=== PATIENT | male | born 1940 | race Caucasian/White ===

== ENCOUNTER → 2017-07-21 13:36 | Outpatient (CLI) | payer MEDICARE, OTHER, SELFPAY ==
[2017-07-21 13:32] VITALS: BP 120/76; BMI 25.9
--- NOTE | 2017-07-21 13:41 | RAD_ITS ---
STUDY: X-RAY - UNILATERAL RIBS ( LEFT ) REASON FOR EXAM: Male, 77 years old. Fall. Posterior lower rib pain TECHNIQUE: 5 view(s) of the ribs. COMPARISON: None. FINDINGS: There is a fracture of the posterior-lateral left 10th rib The visualized lung is clear and expanded. There is diffuse osteoporosis There is cardiomegaly. The patient is status post sternotomy. There are degenerative changes of the spine. There is tortuosity of thoracic aorta. There are extensive calcifications of the abdominal aorta There is a calcified left granuloma RAD/Ribs Unil 2V No CXR IMPRESSION: Acute fracture of the posterior left 10th rib Electronically Signed: Rohith Chin MD, FACR at 14:40 EST , Service support ,
--- NOTE | 2017-07-21 13:41 | RAD_ITS ---
STUDY: X-RAY CHEST REASON FOR EXAM: Male, 77 years old. Fall. Pain in lower anterior ribs. TECHNIQUE: Frontal and lateral views of the chest. COMPARISON: August 08, 2014 FINDINGS: There is low volume inspiration. There are granulomatous calcifications unchanged. There is no demonstrated pleural abnormality. There is stable cardiomegaly with sternotomy wires. Normal mediastinum and harley. Normal visualized pulmonary arteries. There is atherosclerotic calcification of the aortic arch with tortuosity. There are diffuse degenerative changes of the visualized thoracic spine. Normal visualized ribs, clavicles, and shoulders. There is no demonstrated abnormality of the visualized soft tissue structures of the upper abdomen. RAD/Chest PA and Lateral IMPRESSION: Stable cardiomegaly. Low volume inspiration. No acute pathology. Electronically Signed: Srikanth Sunshine MD at 16:09 EST , Service support ,
== END ==
PROVIDERS: Family Provider Family Medicine Geriatric Medicine; PCP Family Medicine Geriatric Medicine; Visit Provider Physician Assistant
DX: S22.32XA Fracture of one rib, left side, initial encounter for closed fracture (principal); S20.212A Contusion of left front wall of thorax, initial encounter; W19.XXXA Unspecified fall, initial encounter
CPT/HCPCS: 71046; 71100

== ENCOUNTER → 2017-09-11 10:19 | Outpatient (CLI) | payer MEDICARE, OTHER, SELFPAY ==
[2017-09-11 13:16] LABS: Absolute Lymphocyte Count 1.12 X10^3/ul (0.83-4.51); Absolute Neutrophil Count 3.8 X10^3/uL (2.0-7.7); Basophil# 0.02 X10^3/uL; Basophil% 0.3 % (0-1); Eosinophils% 1.7 % (0-5); Hematocrit 39.6 % (40-54); Hemoglobin 12.5 g/dl (13.0-16.5); Lymphocyte # 1.12 X10^3/ul (4.0); Lymphocyte % 19.1 % (19-41); Mean Corp Hgb Conc 31.6 g/gl (32-36); Mean Corpuscular Hgb 29.3 pg (27.0-32.0); Mean Platelet Vol. 10.5 fl (6.2-12.0); Monocyte# 0.77 X10^3/uL; Monocyte% 13.2 % (0-10); Neutrophil # 3.82 X10^3/uL (2.7-7.7); Neutrophil % 65.4 % (47-70); Platelet Count 250 K/mm3 (150-450); RBC Distribution Width CV 14.9 % (11.6-14.6); RBC Distribution Width SD 49.3 fl (35.1-43.9); Red Blood Count 4.26 M/mm3 (4.6-6.2); White Blood Count 5.9 K/mm3 (4.4-11.0)
[2017-09-11 13:17] LABS: POSITIVE COUNT NO; POSITIVE DIFFERENTIAL NO; POSITIVE MORPHOLOGY NO
[2017-09-11 13:40] LABS: ALB/GLOB Ratio 1.2 RATIO (0.9-2.4); AST(SGOT) 20 U/L (15-37); Alanine Aminotransfer ALT/SGPT 23 U/L (16-61); Albumin, Serum 3.7 g/dL (3.2-5.0); Alkaline Phosphatase 83 U/L (45-117); Anion Gap 8 (5-15); BUN 21 mg/dL (7-18); BUN/Creat Ratio 16.2 RATIO (10-20); Calcium,Total 8.9 mg/dL (8.5-10.1); Chloride 104 mmol/L (98-107); EST Glomerular Filtration Rate 57 mL/min (>60); Est Glom Filt Rate - Afr Amer 69 mL/min (>60); Globulin 3.1 g/dL (2.2-4.2); Glucose 97 mg/dL (74-106); Potassium 4.2 mmol/L (3.5-5.1); Protein, Total 6.8 g/dL (6.4-8.2); Sodium Level 140 mmol/L (136-145); Thyroid Stim Hormone (TSH) 2.76 uIU/mL (0.358-3.74)
[2017-09-12 10:04] LABS: Vitamin D,25 Hydroxy 24.2 ng/mL (29.95-100.01)
== END ==
PROVIDERS: Family Provider Family Medicine Geriatric Medicine; PCP Family Medicine Geriatric Medicine; Visit Provider Family Medicine Geriatric Medicine
DX: E55.9 Vitamin D deficiency, unspecified (principal); F52.8 Other sexual dysfunction not due to a substance or known physiological condition; I10 Essential (primary) hypertension
CPT/HCPCS: 36415; 80053; 82306; 84403; 84443; 85025

== ENCOUNTER 2017-10-07 00:18 | Inpatient (IN) | payer MEDICARE, OTHER, SELFPAY ==
[2017-10-07] VITALS (11 sets, daily range): BP systolic 128–155; BP diastolic 63–84; PULSE 65–85; RESP 16–24; TEMP 36.7–38.8; O2SAT 96–100; BMI 25.8
--- NOTE | 2017-10-07 00:33 | EKG12_ITS ---
Test Reason : Blood Pressure : / mmHG Vent. Rate : 079 BPM Atrial Rate : 079 BPM P-R Int : 150 ms QRS Dur : 088 ms QT Int : 390 ms P-R-T Axes : 045 010 030 degrees QTc Int : 447 ms Normal sinus rhythm Nonspecific ST segment Confirmed by ELIJAH SALINAS, DAMARIS ([id number]), brands editor NAM DOMINGO ([id number] on 10/09/2017 12:48:30 PM Referred By: LACI Confirmed By:DAMARIS NAVA MD
--- NOTE | 2017-10-07 00:33 | RAD_ITS ---
STUDY: X-RAY CHEST REASON FOR EXAM: Male, 77 years old. Fever. TECHNIQUE: Single AP portable view of the chest. COMPARISON: Prior comparison studies are not available for review at this time. FINDINGS: The lungs are clear and expanded. There is no demonstrated pleural abnormality. Sternal cerclage wires are present from a prior sternotomy. The heart size is within normal limits. Normal mediastinum and harley. Normal visualized pulmonary arteries. There is atherosclerotic tortuosity of the aortic arch and descending thoracic aorta. The thoracic spine is obscured. Normal visualized ribs, clavicles, and shoulders. There is no demonstrated abnormality of the visualized soft tissue structures of the upper abdomen. RAD/Chest 1 View (Portable) IMPRESSION: No active pulmonary disease. Electronically Signed: Washington Ragland MD at 1:25 EDT Tel , Service support ,
--- NOTE | 2017-10-07 00:33 | CT_ITS ---
STUDY: CT ABDOMEN AND PELVIS WITHOUT CONTRAST REASON FOR EXAM: Male, 77 years old. Low back pain following fall. Fever, shaking and hypertension. RADIATION DOSAGE (If Supplied By Facility): CTDIvol = ( 13.03 ) mGy, DLP = ( 700.02 ) mGycm TECHNIQUE: Transaxial images were obtained from the dome of the diaphragm to the symphysis pubis without oral contrast, and without intravenous contrast. Sagittal and coronal images were reconstructed. Individualized dose optimization techniques were used for this CT. COMPARISON: None. FINDINGS: The visualized lung bases are unremarkable. The heart is within normal limits in size. The left atrium somewhat prominent. There are coronary calcifications. Normal liver. Normal gallbladder and extrahepatic biliary system. There is a benign calcified granuloma of the spleen. Normal pancreas. Normal bilateral adrenal glands. Normal right kidney. 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 There is a large cyst in the lateral aspect of the left kidney measuring about 6.5 cm. There is no evidence of hydronephrosis. There is moderate size hiatal hernia. There are surgical clips in the gastroesophageal junction region and surgical clips close to the colon. The small bowel loops are normal in caliber. There is no evidence of bowel obstruction. There is fecal retention. There is non-visualization of the appendix. There is diffuse atherosclerotic calcification of the abdominal aorta with elongation and tortuosity, but without a demonstrated aneurysm. Normal inferior vena cava. Normal retroperitoneum. Normal urinary bladder. There is enlargement of the prostate gland. There are small prostatic calcifications. Normal abdominal wall. There is diffuse demineralization of the osseous structures. There are degenerative changes of the lumbar spine at multiple levels. There is mild S-shaped scoliosis. CT/Abdomen/Pelvis without Cont IMPRESSION: Postoperative changes in the gastroesophageal junction region. Nonspecific fluid-filled small bowel loops without evidence of small bowel obstruction. Fecal retention. Nonvisualization of the appendix. Enlarged prostate. No demonstrated otherwise acute process. Electronically Signed: Washington Ragland MD at 1:58 EDT Tel , Service support ,
--- NOTE | 2017-10-07 00:37 | ED.DCSUM_ITS ---
- ER Visit Summary Date of Service: 10/07/17 Chief Complaint: Fever, weakness History of Present Illness: The patient is a 77 M resents to the emergency department with fever and weakness. Patient apparently had a mechanical fall today. He does not have any recollection of the incident. I do suspect he has some mild dementia. There is no family at the bedside. He has been increasingly weak over the past 24 hours. noticed that he had a fever today. He denies any current symptoms. He denies cough, abdominal pain, vomiting, or dysuria. His only current complaint is of mild low back pain. He is unsure of his daily medications. Physical Examination: Vital signs reviewed General: Well-nourished, well-developed Head: Normocephalic, atraumatic Eyes: Pupils equal and reactive, extraocular muscles intact Neck, supple, no lymphadenopathy Heart: Regular rate and rhythm Respiratory: No distress, clear bilaterally Abdomen: Soft, nontender, nondistended, no peritoneal signs Back: Mild tenderness in the lumbar spine without step-off or deformity Extremities: Nontender, no edema, no cords Skin: Normal color no rash Neuro: Alert and oriented to self, no focal or lateralizing deficits Test Results: [] Emergency Department Course and Treatment: I was able to discuss the presentation with the patient's over the phone. Apparently, he did not fall. He was just more confused today and was complaining of increasing back pain. He was seen by his chiropractor. The patient does have some CVA tenderness. He also has a fever. My concern was for infectious process. Screening labs are obtained. The patient does have a mild leukocytosis. It does appear as if the urine is the source of infection. With this pain, I did obtain a CT of his abdomen. There is no evidence of acute intra-abdominal process. He does have a large left renal cyst, but there is no evidence of abscess. Blood cultures were obtained. The patient's lactate is normal. He has not been hypotensive. He has not been tachycardic. He is given IV Rocephin. With the patient's increasing confusion and evidence of pyelonephritis, he will be admitted. He was discussed with the hospitalist. Treatment Plan: [] Disposition: Admission Impression: 1. Sepsis 2. Pyelonephritis 3. Delirium This note was generated with [employer] software. It may contain incorrect words, spelling, and punctuation that were not noted in review of the chart prior to signing ED Disposition - Plan for ED Patient: Chief Complaint: Fall Referrals: Ricardo Martínez Chi, MD [Primary Care Provider] -
[2017-10-07] MEDS: Acetaminophen 500 MG Tablet 1000 MG PO (00:38)
[2017-10-07] MEDS: 0.9% Normal Saline 1,000 ML 1000 ML IV (00:38)
--- NOTE | 2017-10-07 00:41 | NURSING ---
Addendum entered by Jason Marin 10/07/17 00:41: NO OLD EKG'S IN MUSE Original Note: NO OLD EKG'S IU
[2017-10-07 00:52] LABS: International Normalized Ratio 0.9; Prothrombin Time (Protime)PT. 12.6 SECONDS (11.7-14.9)
[2017-10-07 00:55] LABS: Bacteria 0 SEEN /hpf (None Seen)
[2017-10-07 00:56] LABS: Color, Urine Yellow (Yellow); Glucose, Dipstick Normal (Normal); Ketone-Dipstick 5 mg/dl (Negative); Leukocyte Esterase-Dipstick 500 /ul (Negative); Nitrite-Dipstick Negative (Negative); Occult Blood-Urine 25 /ul (Negative); Protein-Dipstick 30 mg/dl (Negative); Specific Gravity, Urine 1.025 (1.002-1.030); Urine Clarity Sl. Cloudy (Clear); Urine Urobilinogen 1 mg/dl (Normal)
[2017-10-07 01:00] LABS: Absolute Lymphocyte Count 0.53 X10^3/ul (0.83-4.51); Absolute Neutrophil Count 10.4 X10^3/uL (2.0-7.7); Basophil# 0.02 X10^3/uL; Basophil% 0.2 % (0-1); Eosinophil# 0.02 X10^3/uL; Eosinophils% 0.2 % (0-5); Hemoglobin 12.6 g/dl (13.0-16.5); Lymphocyte # 0.53 X10^3/ul (4.0); Lymphocyte % 4.3 % (19-41); Mean Corp Hgb Conc 32.3 g/gl (32-36); Mean Corpuscular Hgb 29.7 pg (27.0-32.0); Monocyte# 1.37 X10^3/uL; Monocyte% 11.1 % (0-10); Neutrophil # 10.43 X10^3/uL (2.7-7.7); Platelet Count 225 K/mm3 (150-450); RBC Distribution Width CV 14.7 % (11.6-14.6); RBC Distribution Width SD 48.2 fl (35.1-43.9); Red Blood Count 4.24 M/mm3 (4.6-6.2); White Blood Count 12.4 K/mm3 (4.4-11.0)
[2017-10-07 01:01] LABS: Differential Indicated SCAN CRITERIA MET; POSITIVE COUNT NO; POSITIVE DIFFERENTIAL YES; POSITIVE MORPHOLOGY NO
[2017-10-07 01:03] LABS: Urine Bilirubin Dipstick 1 mg/dL (Negative)
[2017-10-07 01:04] LABS: Mucous, Urine 2+ /hpf (<or=2+); Red Blood Cells-Urine 0-5 SEEN /hpf (0-5); Squamous Epithelial Cells - UA 0-5 SEEN /hpf (0-5); White Blood Cells 50-100 SEEN /hpf (0-5)
[2017-10-07 01:05] LABS: ALB/GLOB Ratio 1.2 RATIO (0.9-2.4); AST(SGOT) 16 U/L (15-37); Alanine Aminotransfer ALT/SGPT 21 U/L (16-61); Albumin, Serum 3.7 g/dL (3.2-5.0); Alkaline Phosphatase 85 U/L (45-117); Anion Gap 5 (5-15); BUN 19 mg/dL (7-18); BUN/Creat Ratio 13.9 RATIO (10-20); Chloride 109 mmol/L (98-107); Creatinine, Serum 1.37 mg/dL (0.70-1.30); EST Glomerular Filtration Rate 53 mL/min (>60); Est Glom Filt Rate - Afr Amer 65 mL/min (>60); Estimated Creatinine Clearance 46.62 ml/min; Globulin 3.2 g/dL (2.2-4.2); Glucose 113 mg/dL (74-106); Potassium 3.7 mmol/L (3.5-5.1); Protein, Total 6.9 g/dL (6.4-8.2); Sodium Level 142 mmol/L (136-145)
[2017-10-07 01:09] LABS: Lactic Acid 1.2 mmol/L (0.4-2.0)
[2017-10-07] MEDS: Ceftriaxone 1 GM/50 ML BAG IV (01:28)
--- NOTE | 2017-10-07 01:36 | ED.RN ---
ATTEMPTED TO CALL [facility] AT [phone] TO OBTAIN PT INFORMATION. WAS UNABLE TO REACH AT THIS TIME. NO VOICEMAIL
--- NOTE | 2017-10-07 02:25 | HP.PCM_ITS ---
Problem List (1) Dementia Status: Chronic Qualifiers: Dementia type: unspecified type (2) Febrile illness Status: Acute (3) UTI (urinary tract infection) Status: Acute Qualifiers: Urinary tract infection type: site unspecified (4) Accident due to mechanical fall without injury Status: Suspected History of Present Illness Date of Admission: 10/07/17 Chief Complaint: pyelonephritis The patient is a 77 year old male patient with mild dementia at baseline who comes from home presents to the ER with fever. He is seemingly more confused per report by his spouse. Patient has a leukocytosis with a left shift and UA is indicative as likely source. The patient denies flank pain. It is reported that he had a mechanical fall by his spouse but patient is an unreliable historian and can't remember falling. His left to go home prior to my assessment. He will be admitted for management of his UTI. Lactate was within normal limits. Past Medical History Past Medical History (Chronic Problems): Chronic Problems Dementia (Chronic) Allergies No Known Allergies Allergy (Verified 10/07/17 00:30) Home Medications: Ambulatory Orders Medication Instructions Recorded Aspirin 325 mg PO QHS 10/07/17 Calcium PO DAILY 10/07/17 Memantine HCl 10 mg PO BID 10/07/17 Metoprolol Tartrate 50 mg PO DAILY 10/07/17 Multivitamin [Daily Multiple 1 each PO DAILY 10/07/17 Vitamin] Pantoprazole Sodium [Protonix] 20 mg PO DAILY 10/07/17 Pravastatin [Pravachol] 80 mg PO DAILY 10/07/17 Prednisone 5 mg PO DAILY 10/07/17 traMADol [Ultram (G)] 50 mg PO Q6H PRN PRN 10/07/17 Smoking Status: Never smoker - *Family History Maternal History Items: No pertinent history Review of Systems Constitutional: Reports: Chills, Fever. Denies: Weight Change HEENT: Denies: Head Aches, Sinus Congestion, Sinus Drainage Cardiovascular: Denies: Chest Pain, Palpitations Respiratory: Denies: Cough, Shortness of breath at rest, Sputum production Gastrointestinal: Denies: Abdominal Pain, Nausea, Vomiting Genitourinary: Denies: Dysuria Musculoskeletal: Denies: Joint Pain, Joint Tenderness Skin: Denies: Rash, Wounds Neurological: Denies: Numbness, Tingling, Focal weakness Psychiatric: Denies: Anxiety, Depression, Homicidal Ideations, Suicidal Ideations Hematologic/ Lymphatic: Denies: Easy Bruising, Easy Bleeding VTE Information - Inpt Only VTE Present on Admission: No VTE Mechan Device Prophylaxis: None VTE Pharm Prophylaxis ordered?: Yes Patient Problems: Active and Suspected Problems Febrile illness (Acute) UTI (urinary tract infection) (Acute) Accident due to mechanical fall without injury (Suspected) - Physical Exam General: Alert, Cooperative, Confused HEENT: Atraumatic, Normocephalic Neck: Supple, No JVD, Negative Carotid Bruits Lungs: Clear to auscultation, Normal air movement, No rhonchi, No wheeze, No rales Cardiovascular: Regular rate, Regular Rhythm, Normal S1, Normal S2, No murmurs Abdomen: Bowel Sounds Present, Soft, Non Tender, - - neg cva tenderness Extremities: No edema, Capillary Refill Less than 3 Seconds Skin: No rashes, No breakdown Musculoskeletal: No Tenderness to Palpation of Joints or Extremities Neurological: Neuro grossly intact Psych/Mental Status: Restless, - - mild memory impairment Vital Signs Temp Pulse Resp BP Pulse Ox 98.6 F 75 18 129/63 H 98 10/07/17 02:05 10/07/17 02:05 10/07/17 02:05 10/07/17 02:05 10/07/17 02:05 Oxygen Delivery Method Room Air Weight: 180 lb Body Mass Index (BMI) 25.8 Microbiology Past 72 Hours 10/07/17 01:00 Influenza Types A,B Direct FA ([facility]) - Final Mucosa - Nose Laboratory Tests Past 24 Hrs 10/07/17 10/07/17 10/07/17 00:30 00:30 00:30 WBC 12.4 H RBC 4.24 L Hgb 12.6 L Hct 39.0 L MCV 92.0 MCH 29.7 MCHC 32.3 RDW 14.7 H RDW Differential 48.2 H Plt Count 225 MPV 10.0 Immature Gran % (Auto) 0.200 Neut % (Auto) 84.0 H Lymph % (Auto) 4.3 L Sharkey % (Auto) 11.1 H Eos % (Auto) 0.2 Baso % (Auto) 0.2 Absolute Neuts (auto) 10.4 H Absolute Lymphs (auto) 0.53 L Total Counted Not Reportable PT 12.6 INR 0.9 Sodium 142 Potassium 3.7 Chloride 109 H Carbon Dioxide 28.0 Anion Gap 5 BUN 19 H Creatinine 1.37 H Estim Creat Clear Calc 46.62 Est GFR (MDRD) Af Amer 65 Est GFR (MDRD) Non-Af 53 L BUN/Creatinine Ratio 13.9 Glucose 113 H Lactic Acid Calcium 9.0 Total Bilirubin 0.50 AST 16 ALT 21 Alkaline Phosphatase 85 Total Protein 6.9 Albumin 3.7 Globulin 3.2 Albumin/Globulin Ratio 1.2 Urine Color Urine Clarity Urine pH Ur Specific [place] Urine Protein Urine Glucose (UA) Urine Ketones Urine Occult Blood Urine Nitrite Urine Bilirubin Urine Urobilinogen Ur Leukocyte Esterase Urine RBC Urine WBC Ur Squamous Epith Cells Urine Bacteria Urine Mucus 10/07/17 10/07/17 00:30 00:50 WBC RBC Hgb Hct MCV MCH MCHC RDW RDW Differential Plt Count MPV Immature Gran % (Auto) Neut % (Auto) Lymph % (Auto) Sharkey % (Auto) Eos % (Auto) Baso % (Auto) Absolute Neuts (auto) Absolute Lymphs (auto) Total Counted PT INR Sodium Potassium Chloride Carbon Dioxide Anion Gap BUN Creatinine Estim Creat Clear Calc Est GFR (MDRD) Af Amer Est GFR (MDRD) Non-Af BUN/Creatinine Ratio Glucose Lactic Acid 1.2 Calcium Total Bilirubin AST ALT Alkaline Phosphatase Total Protein Albumin Globulin Albumin/Globulin Ratio Urine Color Yellow Urine Clarity Sl. Cloudy Urine pH 5.0 Ur Specific [place] 1.025 Urine Protein 30 H Urine Glucose (UA) Normal Urine Ketones 5 H Urine Occult Blood 25 H Urine Nitrite Negative Urine Bilirubin 1 H Urine Urobilinogen 1 H Ur Leukocyte Esterase 500 H Urine RBC 0-5 SEEN Urine WBC 50-100 SEEN Ur Squamous Epith Cells 0-5 SEEN Urine Bacteria 0 SEEN Urine Mucus 2+ Assessment/Plan Active and Suspected Problems Febrile illness (Acute) UTI (urinary tract infection) (Acute) Accident due to mechanical fall without injury (Suspected) Plan - admit to general medical floor - 1 gram Rocephin IV q day - normal saline at 100cc/hour - CBC, BMP in am - continue routine home medications - LMWH for DVT prophylaxis Code Visit Inpatient E&M: 49186 Init Hosp L2
[2017-10-07] MEDS: 0.9% Normal Saline 1,000 ML 100 ML IV ×2 (03:21→12:16)
[2017-10-07] MEDS: 0.9% NaCl Peripheral Flush Adult/Peds IV (03:46)
[2017-10-07 07:14] LABS: Hematocrit 35.8 % (40-54); Hemoglobin 11.4 g/dl (13.0-16.5); Mean Corp Hgb Conc 31.8 g/gl (32-36); Mean Corpuscular Hgb 29.4 pg (27.0-32.0); Mean Corpuscular Volume 92.3 fL (80-94); Mean Platelet Vol. 10.2 fl (6.2-12.0); Platelet Count 202 K/mm3 (150-450); RBC Distribution Width CV 14.8 % (11.6-14.6); RBC Distribution Width SD 48.3 fl (35.1-43.9); Red Blood Count 3.88 M/mm3 (4.6-6.2); Scan Indicated on CBC? Y/N NO; White Blood Count 11.3 K/mm3 (4.4-11.0)
--- NOTE | 2017-10-07 07:33 | PN_ITS ---
Patient Problems: Active and Suspected Problems (This Medical Record has been edited. Action required.) Febrile illness (Acute) UTI (urinary tract infection) (Acute) Accident due to mechanical fall without injury (Suspected) Subjective: Patient seen and examined. Seen with. Patient denies falling. He has cognitive impairment, lives with his at home. Denies any complaints at time of being seen. He says he feels much improved. Vitals/I&O's: Vital Signs Temp Pulse Resp BP Pulse Ox 99.2 F H 80 16 128/68 H 100 10/07/17 03:18 10/07/17 03:47 10/07/17 03:47 10/07/17 03:18 10/07/17 03:47 Oxygen Delivery Method Room Air Weight: 81.6 kg Body Mass Index (BMI) 25.8 General: Alert, Oriented x3, Cooperative, No apparent distress HEENT: Atraumatic, PERRLA, EOMI, Normocephalic Neck: Supple Lungs: Clear to auscultation, Normal air movement Cardiovascular: Regular rate, Regular Rhythm, Normal S1, Normal S2, No murmurs Abdomen: Bowel Sounds Present, Soft, Non Tender, Non-Distended, No Hepato- splenomegaly Extremities: No edema Skin: No rashes, No breakdown Musculoskeletal: No Tenderness to Palpation of Joints or Extremities Lymphatic: No Cervical, Supraclavicular, or Inguinal Adenopathy Neurological: Cranial nerves II-XII grossly intact Psych/Mental Status: Normal Affect, Appropriate Laboratory Results 10/07/17 06:48: WBC 11.3 H, RBC 3.88 L, Hgb 11.4 L, Hct 35.8 L, MCV 92.3, MCH 29.4, MCHC 31.8 L, RDW 14.8 H, RDW Differential 48.3 H, Plt Count 202, MPV 10.2 10/07/17 06:48: Sodium Pending, Potassium Pending, Chloride Pending, Carbon Dioxide Pending, Anion Gap Pending, BUN Pending, Creatinine Pending, Est GFR ( MDRD) Af Amer Pending, Est GFR (MDRD) Non-Af Pending, BUN/Creatinine Ratio Pending, Glucose Pending, Calcium Pending Current Medications Acetaminophen (Tylenol) 650 mg PO Q6H PRN PRN PRN Reason: FEVER Aspirin (Aspirin) 325 mg PO QHS [place] Sodium Chloride () 1,000 mls @ 100 mls/hr IV .Q10H [place] Last Admin: 10/07/17 03:21 Dose: 100 mls/hr Ceftriaxone Sodium (Rocephin) 1 gm in 50 mls @ 100 mls/hr IV Q24 [facility] Memantine (Namenda) 10 mg PO BID [facility] Metoprolol Tartrate (Lopressor (Beta Norbert)) 50 mg PO DAILY [facility] Multivitamins (Multivitamin) 1 tablet PO DAILYCM [facility] Ondansetron HCl (Zofran) 4 mg IV Q8H PRN PRN PRN Reason: Nausea Pantoprazole Sodium (Protonix) 20 mg PO DAILY [facility] Polyethylene Glycol (Miralax) 17 gm PO DAILY [facility] Pravastatin Sodium (Pravachol) 80 mg PO DAILY@2200 [facility] Prednisone () 5 mg PO DAILYCM [facility] Sodium Chloride () 5 - 30 ml IV UD PRN PRN Reason: SALINE FLUSH Last Admin: 10/07/17 03:46 Dose: 10 ml Tramadol HCl (Ultram) 50 mg PO Q6H PRN PRN PRN Reason: PAIN Medical Necessity - Tobacco Use Smoking Status: Former smoker Assessment/Plan Active and Suspected Problems (This Medical Record has been edited. Action required.) Febrile illness (Acute) UTI (urinary tract infection) (Acute) Accident due to mechanical fall without injury (Suspected) 77-year-old male with past medical history of dementia with Parkinson's disease , hypertension who comes in with fever and confusion and is being managed as UTI. 1. Acute metabolic encephalopathy likely secondary to UTI, resolved, patient at baseline, will continue to monitor patient's mentation. 2. Acute UTI without any SIRS criteria, blood cultures are pending, urine culture apparently not done, patient started already on antibiotics, will continue empiric treatment for 1 week total antibiotics, continue on IV ceftriaxone for now 3. Hypertension, controlled, continue on metoprolol 4. Parkinson's disease with dementia, not on any Parkinson's disease medication , on memantine, discussed with the son, patient will need neurology evaluation in the outpatient 5. CAD status post stent, on aspirin, statin 6. History of atrial fibrillation, controlled, on anticoagulation because of falls 7. Chronic steroid use, unclear reason, will continue on prednisone. 8. DVT Prophylaxis with heparin subcu 9. Disposition: Possible DC home in am Code Visit Inpatient E&M: 04386 Subs Hosp L2
[2017-10-07 07:57] LABS: Anion Gap 8 (5-15); BUN 15 mg/dL (7-18); BUN/Creat Ratio 13.9 RATIO (10-20); Calcium,Total 8.3 mg/dL (8.5-10.1); Chloride 112 mmol/L (98-107); Creatinine, Serum 1.08 mg/dL (0.70-1.30); EST Glomerular Filtration Rate 70 mL/min (>60); Est Glom Filt Rate - Afr Amer 85 mL/min (>60); Estimated Creatinine Clearance 59.14 ml/min; Glucose 110 mg/dL (74-106); Potassium 3.8 mmol/L (3.5-5.1); Sodium Level 146 mmol/L (136-145)
[2017-10-07] MEDS: Polyethylene Glycol 3350 17 GM PACKET PO (08:26)
[2017-10-07] MEDS: Multivitamins,Therapeutic Tablet 1 TABLET PO (08:26)
[2017-10-07] MEDS: Metoprolol Tartrate 50 MG Tablet PO (08:26)
[2017-10-07] MEDS: predniSONE 5 MG Tablet PO (08:26)
[2017-10-07] MEDS: Memantine Hydrochloride 10 MG Tablet PO ×2 (08:26→22:15)
[2017-10-07] MEDS: Pantoprazole Sodium 20 MG Tablet PO (08:27)
[2017-10-07] MEDS: Acetaminophen 325 MG Tablet 650 MG PO (08:27)
[2017-10-07] MEDS: traMADol 50 MG Tablet PO ×2 (14:55→22:19)
--- NOTE | 2017-10-07 16:11 | CASEMGMT ---
CYNDIE LEIVA Face to Face with patient for initial transition planning/care coordination assessment. CYNDIE LEIVA introduced self and role at [facility]. Patient lying in bed, alert and oriented, and nurse wound care at bedside. Patient willing to participate in assessment and is able to answer all questions appropriately. Care providers, pharmacy, and demographics verified. See link attached. Pt wishes to discharge home with C with [facility]. CYNDIE LEIVA will make a referral for HHC with [facility]. Patient states he has no further needs or concerns at this time. CM to follow for discharge planning needs that may arise. Disposition Plan: Patient to discharge home with [facility], family support, and follow-up plans in place.
--- NOTE | 2017-10-07 16:25 | CASEMGMT ---
Social Work Note Per RN CALI Ceballos, pt has Palliative Care Services through [facility]. SW placed a call to [facility] and spoke with Madonna to inform her that pt is in hospital. Plan: Discharge home with HHC and resumption of Palliative Care Services Bernice Dangelo RECONCILING CLERK, HEALTH CONSULTANT
[2017-10-07] MEDS: Aspirin 325 MG Tablet PO (22:15)
[2017-10-07] MEDS: Pravastatin 80 MG Tablet PO (22:15)
[2017-10-08 04:00] VITALS: BP 155/75; PULSE 68; RESP 18; TEMP 37.2; O2SAT 98
[2017-10-08 08:29] VITALS: BP 163/72; PULSE 81; O2SAT 99
[2017-10-08] MEDS: Multivitamins,Therapeutic Tablet 1 TABLET PO (08:58)
[2017-10-08] MEDS: predniSONE 5 MG Tablet PO (08:59)
[2017-10-08 09:01] VITALS: PULSE 81; O2SAT 99
[2017-10-08 09:35] VITALS: BP 126/63
[2017-10-08] MEDS: Ceftriaxone 1 GM/50 ML BAG IV (09:56)
--- NOTE | 2017-10-08 09:56 | PCM.DC ---
- Discharge Diagnoses Current Active Problems: Current Active and Chronic Problems (This Medical Record has been edited. Action required.) Dementia (Chronic) Febrile illness (Acute) UTI (urinary tract infection) (Acute) Reason(s) for Visit for Discharge Instructions: Fever, weakness You will use the following diet at home:: Regular Your food should be the consistency of: Regular Your liquids should be the consistency of: Regular/Thin Discharge Activity: Return to Normal Activity Additional Instructions: Complete your antibiotics. Continue to hydrate yourself. You will be getting home health for physical and occupational therapy. You will need to repeat blood work and follow-up with your primary doctor. Allergies/Adverse Reactions: Allergies No Known Allergies Allergy (Verified 07/21/17 13:32) Medications to take at Discharge Calcium Carbonate [Calcium] 600 mg PO DAILY 04/19/16 Aspirin 325 mg PO QHS 10/07/17 Memantine HCl 10 mg PO BID 10/07/17 Metoprolol Tartrate 50 mg PO DAILY 10/07/17 Multivitamin [Daily Multiple Vitamin] 1 each PO DAILY 10/07/17 Pantoprazole Sodium [Protonix] 20 mg PO DAILY 10/07/17 Pravastatin [Pravachol] 80 mg PO QHS 10/07/17 Prednisone 5 mg PO DAILY 10/07/17 traMADol [Ultram] 50 mg PO Q6H PRN PRN 10/07/17 Cefdinir [Omnicef [equiv]] 300 mg PO Q12H #10 cap 10/08/17 The following prescriptions were given: Cefdinir [Omnicef [equiv]] 300 mg PO Q12H #10 cap Primary Care Physician: Ricardo Martínez Chi, MD [Primary Care Provider] - Please follow up with your Primary Care Physician in: within 2 weeks Please Follow Up With: Johnny Villegas MD When: as already scheduled - October 24 Proposed Discharge Date: 10/08/17
[2017-10-08] MEDS: Pantoprazole Sodium 20 MG Tablet PO (10:11)
[2017-10-08 10:12] VITALS: BP 126/63; PULSE 81
[2017-10-08] MEDS: Metoprolol Tartrate 50 MG Tablet PO (10:12)
[2017-10-08] MEDS: Memantine Hydrochloride 10 MG Tablet PO (10:13)
[2017-10-08 10:53] LABS: Absolute Lymphocyte Count 0.53 X10^3/ul (0.83-4.51); Absolute Neutrophil Count 9.3 X10^3/uL (2.0-7.7); Basophil# 0.01 X10^3/uL; Basophil% 0.1 % (0-1); Eosinophil# 0.04 X10^3/uL; Eosinophils% 0.4 % (0-5); Hematocrit 38.2 % (40-54); Lymphocyte # 0.53 X10^3/ul (4.0); Lymphocyte % 4.9 % (19-41); Mean Corp Hgb Conc 31.4 g/gl (32-36); Mean Corpuscular Hgb 28.8 pg (27.0-32.0); Mean Corpuscular Volume 91.6 fL (80-94); Mean Platelet Vol. 9.8 fl (6.2-12.0); Monocyte# 0.91 X10^3/uL; Monocyte% 8.5 % (0-10); Neutrophil # 9.26 X10^3/uL (2.7-7.7); Platelet Count 192 K/mm3 (150-450); RBC Distribution Width SD 50.5 fl (35.1-43.9); Red Blood Count 4.17 M/mm3 (4.6-6.2); White Blood Count 10.8 K/mm3 (4.4-11.0)
[2017-10-08 10:54] LABS: Differential Indicated SCAN CRITERIA MET; POSITIVE COUNT NO; POSITIVE DIFFERENTIAL YES; POSITIVE MORPHOLOGY NO
[2017-10-08 11:17] LABS: Anion Gap 9 (5-15); BUN 13 mg/dL (7-18); BUN/Creat Ratio 9.8 RATIO (10-20); Calcium,Total 8.9 mg/dL (8.5-10.1); Chloride 109 mmol/L (98-107); Creatinine, Serum 1.32 mg/dL (0.70-1.30); EST Glomerular Filtration Rate 56 mL/min (>60); Est Glom Filt Rate - Afr Amer 68 mL/min (>60); Estimated Creatinine Clearance 48.39 ml/min; Glucose 152 mg/dL (74-106); Potassium 3.3 mmol/L (3.5-5.1); Sodium Level 143 mmol/L (136-145)
[2017-10-08 14:00] VITALS: BP 135/73; PULSE 67; RESP 16; TEMP 37; O2SAT 97
[2017-10-08] MEDS: Acetaminophen 325 MG Tablet 650 MG PO (14:04)
--- NOTE | 2017-10-08 15:00 | PCM.DC.SUM ---
Discharge Date and Diagnosis Date of Admission: 10/07/17 Date of Discharge: 10/08/17 - Primary Discharge Diagnosis Acute metabolic encephalopathy Acute UTI Debility - Secondary Discharge Diagnosis Chronic Problems (This Medical Record has been edited. Action required.) Dementia (Chronic) Atherosclerotic heart disease of [place] coronary artery without angina pectoris (Chronic) Paroxysmal atrial fibrillation (Chronic) Palpitations (Chronic) H/O right coronary artery stent placement (Chronic) 08/09/02, cutting balloon procedure of ostium of [facility] use of drug (Chronic) Nonrheumatic tricuspid (valve) insufficiency (Chronic) Nonrheumatic mitral valve regurgitation (Chronic) Nonrheumatic aortic (valve) stenosis (Chronic) History of maze procedure (Chronic) For Atrial fibrillation Atrial tachycardia (Chronic) Parkinsons disease (Chronic) 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 Nonspecific fluid-filled small bowel loops without evidence of small bowel obstruction. Fecal retention. Nonvisualization of the appendix. Enlarged prostate. No demonstrated otherwise acute process. Electronically Signed: Washington Ragland MD at 1:58 EDT Tel , Service support , Chest X-Ray 10/07/17 00:33 IMPRESSION: No active pulmonary disease. Electronically Signed: Washington Ragland MD at 1:25 EDT Tel , Service support , None Operations: None Procedures: None Summary of Care Provided: 77-year-old male with past medical history of dementia with Parkinson's disease, hypertension who comes in with fever and confusion and is being managed as UTI. 1. Acute metabolic encephalopathy likely secondary to UTI, resolved, at his baseline 2. Acute UTI without any SIRS criteria, blood cultures are pending, is on IV ceftriaxone for 2 days, will be discharged on cefdinir for 5 more days making 1 week total antibiotics. 3. Debility related to acute medical problems, and the patient with baseline cognitive impairment and Parkinson's disease with problems ambulating, patient will be getting home health for physical and occupational therapy. 4. Hypertension, controlled, on metoprolol 5. Parkinson's disease with dementia, not on any Parkinson's disease medication, on memantine, has an outpatient neurology appointment on October 24, 2017. 6. CAD status post stent, on aspirin, statin 7. History of atrial fibrillation, controlled, not on anticoagulation because of falls 8. Chronic steroid use, unclear reason, on low dose prednisone. Discharge Diet: 2000 mg Sodium Diet Discharge Activity: Return to Normal Activity Home Medications: Medications to take at Discharge Calcium Carbonate [Calcium] 600 mg PO DAILY 04/19/16 Aspirin 325 mg PO QHS 10/07/17 Memantine HCl 10 mg PO BID 10/07/17 Metoprolol Tartrate 50 mg PO DAILY 10/07/17 Multivitamin [Daily Multiple Vitamin] 1 each PO DAILY 10/07/17 Pantoprazole Sodium [Protonix] 20 mg PO DAILY 10/07/17 Pravastatin [Pravachol] 80 mg PO QHS 10/07/17 Prednisone 5 mg PO DAILY 10/07/17 traMADol [Ultram] 50 mg PO Q6H PRN PRN 10/07/17 Cefdinir [Omnicef [equiv]] 300 mg PO Q12H #10 cap 10/08/17 Following Prescrptions Were Given to Patient: Cefdinir [Omnicef [equiv]] 300 mg PO Q12H #10 cap Primary Care Physician: Ricardo Martínez Chi, MD [Primary Care Provider] - Please follow up with your Primary Care Physician in: within 2 weeks Please Follow Up With: Johnny Villegas MD When: as already scheduled - October 24 Disposition: Home Minutes spent on discharge:: 35 Patient Condition:: Stable Medical Necessity - Tobacco Use Smoking Status: Former smoker Meaningful Use Info Meaningful Use Diagnoses (Choose all that apply): None applicable Code Visit Inpatient E&M: 73657 Disch Hosp
== END 2017-10-08 14:25 | disposition home or self-care (01) | DRG 689 ==
LOC: ED 01:41 → MS3 02:35
PROVIDERS: Admitting Provider Family Medicine; Emergency Provider Emergency Medicine; Family Provider Family Medicine Geriatric Medicine; PCP Family Medicine Geriatric Medicine; Visit Provider Internal Medicine
DX: N39.0 Urinary tract infection, site not specified (principal); G93.41 Metabolic encephalopathy; G20 Parkinson's disease; R53.81 Other malaise; F02.80 Dementia in other diseases classified elsewhere, unspecified severity, without behavioral disturbance, psychotic disturbance, mood disturbance, and anxiety; I48.0 Paroxysmal atrial fibrillation; I25.10 Atherosclerotic heart disease of native coronary artery without angina pectoris; I10 Essential (primary) hypertension; I36.1 Nonrheumatic tricuspid (valve) insufficiency; I34.0 Nonrheumatic mitral (valve) insufficiency; I35.0 Nonrheumatic aortic (valve) stenosis; N40.1 Benign prostatic hyperplasia with lower urinary tract symptoms; N13.8 Other obstructive and reflux uropathy; E78.5 Hyperlipidemia, unspecified; Z95.5 Presence of coronary angioplasty implant and graft; Z79.82 Long term (current) use of aspirin; Z79.52 Long term (current) use of systemic steroids; Z79.899 Other long term (current) drug therapy; Z87.891 Personal history of nicotine dependence
CPT/HCPCS: 36415; 71045; 74176; 80048; 80053; 81001; 83605; 85025; 85027; 85610; 87040; 87804; 93005; 97162; 97166; 97802; 99285; J7030; J7050; A4216

== ENCOUNTER → 2017-10-14 13:39 | Outpatient (CLI) | payer MEDICARE, SELFPAY ==
[2017-10-14 14:59] LABS: Absolute Lymphocyte Count 1.48 X10^3/ul (0.83-4.51); Absolute Neutrophil Count 3.4 X10^3/uL (2.0-7.7); Basophil# 0.02 X10^3/uL; Basophil% 0.4 % (0-1); Eosinophil# 0.09 X10^3/uL; Eosinophils% 1.7 % (0-5); Hematocrit 38.3 % (40-54); Hemoglobin 11.9 g/dl (13.0-16.5); Lymphocyte # 1.48 X10^3/ul (4.0); Lymphocyte % 27.3 % (19-41); Mean Corp Hgb Conc 31.1 g/gl (32-36); Mean Corpuscular Hgb 28.7 pg (27.0-32.0); Mean Corpuscular Volume 92.3 fL (80-94); Monocyte# 0.46 X10^3/uL; Monocyte% 8.5 % (0-10); Neutrophil # 3.35 X10^3/uL (2.7-7.7); Neutrophil % 61.5 % (47-70); Platelet Count 309 K/mm3 (150-450); RBC Distribution Width CV 14.9 % (11.6-14.6); RBC Distribution Width SD 50.3 fl (35.1-43.9); Red Blood Count 4.15 M/mm3 (4.6-6.2); White Blood Count 5.4 K/mm3 (4.4-11.0)
[2017-10-14 15:04] LABS: POSITIVE COUNT NO; POSITIVE DIFFERENTIAL NO; POSITIVE MORPHOLOGY NO
[2017-10-14 15:22] LABS: Anion Gap 7 (5-15); BUN 23 mg/dL (7-18); BUN/Creat Ratio 18.1 RATIO (10-20); Calcium,Total 8.9 mg/dL (8.5-10.1); Chloride 108 mmol/L (98-107); Creatinine, Serum 1.27 mg/dL (0.70-1.30); EST Glomerular Filtration Rate 58 mL/min (>60); Est Glom Filt Rate - Afr Amer 71 mL/min (>60); Glucose 115 mg/dL (74-106); Potassium 4.1 mmol/L (3.5-5.1); Sodium Level 143 mmol/L (136-145)
== END ==
PROVIDERS: Family Provider Family Medicine Geriatric Medicine; PCP Family Medicine Geriatric Medicine; Visit Provider Family Medicine Geriatric Medicine
DX: N17.9 Acute kidney failure, unspecified (principal)
CPT/HCPCS: 36415; 80048; 85025

== ENCOUNTER → 2017-11-06 16:10 | Outpatient (CLI) | payer MEDICARE, SELFPAY | PROVIDERS: Family Provider Family Medicine Geriatric Medicine; PCP Family Medicine Geriatric Medicine; Visit Provider Family Medicine Geriatric Medicine | DX: N39.0 Urinary tract infection, site not specified (principal) | CPT/HCPCS: 87086; 87088 ==

== ENCOUNTER → 2017-11-19 13:30 | Outpatient (REF) | payer MEDICARE, SELFPAY | LOC: OLS.AVEB 13:30 | PROVIDERS: Visit Provider Family Medicine | DX: N39.0 Urinary tract infection, site not specified (principal) | CPT/HCPCS: 87086 ==

== ENCOUNTER → 2017-11-25 05:50 | Outpatient (REF) | payer MEDICARE, SELFPAY ==
[2017-11-25 09:02] LABS: Absolute Lymphocyte Count 1.34 X10^3/ul (0.83-4.51); Absolute Neutrophil Count 2.9 X10^3/uL (2.0-7.7); Basophil# 0.02 X10^3/uL; Basophil% 0.4 % (0-1); Hematocrit 35.2 % (40-54); Hemoglobin 11.2 g/dl (13.0-16.5); Lymphocyte # 1.34 X10^3/ul (4.0); Lymphocyte % 26.6 % (19-41); Mean Corp Hgb Conc 31.8 g/gl (32-36); Mean Corpuscular Hgb 28.9 pg (27.0-32.0); Mean Platelet Vol. 9.9 fl (6.2-12.0); Monocyte# 0.65 X10^3/uL; Monocyte% 12.9 % (0-10); Neutrophil # 2.92 X10^3/uL (2.7-7.7); Neutrophil % 57.9 % (47-70); Platelet Count 422 K/mm3 (150-450); RBC Distribution Width CV 14.3 % (11.6-14.6); RBC Distribution Width SD 46.6 fl (35.1-43.9); Red Blood Count 3.87 M/mm3 (4.6-6.2)
[2017-11-25 09:08] LABS: POSITIVE COUNT NO; POSITIVE DIFFERENTIAL NO; POSITIVE MORPHOLOGY NO
[2017-11-25 09:22] LABS: ALB/GLOB Ratio 0.8 RATIO (0.9-2.4); AST(SGOT) 19 U/L (15-37); Alanine Aminotransfer ALT/SGPT 22 U/L (16-61); Alkaline Phosphatase 67 U/L (45-117); Anion Gap 8 (5-15); BUN 14 mg/dL (7-18); BUN/Creat Ratio 12.3 RATIO (10-20); Chloride 107 mmol/L (98-107); Cholesterol 128 mg/dL (200); Creatinine, Serum 1.14 mg/dL (0.70-1.30); EST Glomerular Filtration Rate 66 mL/min (>60); Est Glom Filt Rate - Afr Amer 80 mL/min (>60); Globulin 3.6 g/dL (2.2-4.2); Glucose 80 mg/dL (74-106); High Density Lipoprotein 38 mg/dL; Potassium 4.3 mmol/L (3.5-5.1); Protein, Total 6.6 g/dL (6.4-8.2); Sodium Level 145 mmol/L (136-145); Thyroid Stim Hormone (TSH) 1.49 uIU/mL (0.358-3.74); Triglycerides 66 mg/dL; Very Low Density Lipoprotein 13 mg/dL (5-40)
== END ==
LOC: OLS.AVED 05:50
PROVIDERS: Visit Provider Family Medicine
DX: R53.83 Other fatigue (principal); E78.5 Hyperlipidemia, unspecified
CPT/HCPCS: 36415; 80053; 80061; 84443; 85025

== ENCOUNTER → 2017-12-15 13:40 | Outpatient (REF) | payer MEDICARE, SELFPAY ==
[2017-12-15 14:32] LABS: Anion Gap 6 (5-15); BUN 13 mg/dL (7-18); BUN/Creat Ratio 11.6 RATIO (10-20); Calcium,Total 8.8 mg/dL (8.5-10.1); Chloride 107 mmol/L (98-107); Creatinine, Serum 1.12 mg/dL (0.70-1.30); EST Glomerular Filtration Rate 67 mL/min (>60); Est Glom Filt Rate - Afr Amer 82 mL/min (>60); Glucose 107 mg/dL (74-106); Potassium 4.3 mmol/L (3.5-5.1); Sodium Level 140 mmol/L (136-145)
== END ==
LOC: OLS.AVED 13:40
PROVIDERS: Visit Provider Family Medicine
DX: E86.0 Dehydration (principal)
CPT/HCPCS: 36415; 80048

== ENCOUNTER → 2018-02-23 04:30 | Outpatient (REF) | payer MEDICARE, SELFPAY ==
[2018-02-23 08:55] LABS: Hematocrit 37.1 % (40-54); Hemoglobin 11.7 g/dl (13.0-16.5); Mean Corp Hgb Conc 31.5 g/gl (32-36); Mean Corpuscular Hgb 28.5 pg (27.0-32.0); Mean Corpuscular Volume 90.5 fL (80-94); White Blood Count 4.4 K/mm3 (4.4-11.0)
[2018-02-23 08:56] LABS: Absolute Lymphocyte Count 1.45 X10^3/ul (0.83-4.51); Absolute Neutrophil Count 1.9 X10^3/uL (2.0-7.7); Basophil# 0.03 X10^3/uL; Basophil% 0.7 % (0-1); Eosinophil# 0.22 X10^3/uL; Lymphocyte # 1.45 X10^3/ul (4.0); Lymphocyte % 33.2 % (19-41); Mean Platelet Vol. 10.1 fl (6.2-12.0); Monocyte# 0.71 X10^3/uL; Monocyte% 16.2 % (0-10); Neutrophil # 1.94 X10^3/uL (2.7-7.7); Neutrophil % 44.4 % (47-70); Platelet Count 252 K/mm3 (150-450); RBC Distribution Width SD 52.1 fl (35.1-43.9)
[2018-02-23 09:06] LABS: POSITIVE COUNT NO; POSITIVE DIFFERENTIAL NO; POSITIVE MORPHOLOGY NO
[2018-02-23 09:08] LABS: ALB/GLOB Ratio 0.9 RATIO (0.9-2.4); AST(SGOT) 20 U/L (15-37); Alanine Aminotransfer ALT/SGPT 19 U/L (16-61); Alkaline Phosphatase 76 U/L (45-117); Anion Gap 10 (5-15); BUN 17 mg/dL (7-18); BUN/Creat Ratio 14.5 RATIO (10-20); Calcium,Total 8.7 mg/dL (8.5-10.1); Chloride 106 mmol/L (98-107); Cholesterol 132 mg/dL (200); Creatinine, Serum 1.17 mg/dL (0.70-1.30); EST Glomerular Filtration Rate 64 mL/min (>60); Est Glom Filt Rate - Afr Amer 78 mL/min (>60); Globulin 3.2 g/dL (2.2-4.2); Glucose 82 mg/dL (74-106); High Density Lipoprotein 47 mg/dL; Potassium 3.7 mmol/L (3.5-5.1); Protein, Total 6.2 g/dL (6.4-8.2); Sodium Level 145 mmol/L (136-145); Triglycerides 50 mg/dL; Very Low Density Lipoprotein 10 mg/dL (5-40)
== END ==
LOC: OLS.AVED 04:30
PROVIDERS: Visit Provider Family Medicine
DX: R53.83 Other fatigue (principal); E78.5 Hyperlipidemia, unspecified
CPT/HCPCS: 36415; 80053; 80061; 85025

== ENCOUNTER 2018-05-03 12:59 | Emergency (ER) | payer MEDICARE, OTHER, MEDICAID, SELFPAY ==
[2018-05-03 12:59] VITALS: BMI 25.9
[2018-05-03 13:01] VITALS: BP 144/80; PULSE 72; RESP 14; TEMP 37; O2SAT 96; BMI 25.0
[2018-05-03 13:04] VITALS: PULSE 72; RESP 23; O2SAT 96
--- NOTE | 2018-05-03 13:10 | ED.RN ---
PER EMS, THE AVENUE STAFF STATED THAT THE PT IS USUALLY A&0 X 2. BUT WHEN HE HAS ALTERED MENTAL STATUS IT IS USUALLY D/T UTI.
--- NOTE | 2018-05-03 13:23 | EKG12_ITS ---
Test Reason : WEAKNESS Blood Pressure : / mmHG Vent. Rate : 069 BPM Atrial Rate : 069 BPM P-R Int : 166 ms QRS Dur : 102 ms QT Int : 412 ms P-R-T Axes : 031 011 012 degrees QTc Int : 441 ms Normal sinus rhythm Normal ECG Confirmed by CHAGO SALINAS, ALYSSIA ([id number]), acquisitions editor NAM DOMINGO ([id number] on 05/06/2018 1:01:08 PM Referred By: JUAN F Confirmed By:ALYSSIA ANDERS MD
--- NOTE | 2018-05-03 13:28 | ED.VISSUMM ---
- ER Visit Summary Date of Service: 05/03/18 Chief Complaint: [] Confusion this morning History of Present Illness: The patient is a 78 M [] of dementia and Parkinson's disease UTI who per prison staff he has had decreased ability to interact with them today and he was brought to the emergency department. The patient is normally oriented x2, he has had no fever no cough no UTI symptoms no other complaints Arrival the patient's vital signs are within normal range his blood pressure is 162/80 he is afebrile he is awake he knows his name he knows [facility] he knows [place], he has no complaints he is moving all 4 extremities following commands Physical Examination: [] Vital signs as above General, no distress resting comfortably HEENT is generally unremarkable The neck is supple no adenopathy Cardiovascular, regular rate and rhythm Lungs, clear bilateral Abdomen, soft nontender Extremities, no clubbing cyanosis or edema Neurologic, awake alert answering questions appropriately moving all 4 extremities to commands he states he is thirsty he denies head neck chest or abdominal pain Test Results: [] Emergency Department Course and Treatment: [] This time will obtain some screening labs chest x-ray IV fluids, we will check a rectal temperature Patient studies are all generally unremarkable please see those reports, the chest x-ray shows questionable atelectasis versus infiltrate right base he has no white count no fever no cough no complaints of any kind given the above however he will be started on Levaquin clinically looks well he is oriented x2 he is cooperative here he is at his mental status and general health baseline and he is safe for discharge back to nursing center we did provide him with the first dose of Levaquin here we will have him follow-up with his outpatient providers via the prison system Treatment Plan: [] Disposition: [] Return to prison Impression: [] Transient change in alertness resolved questionable right lower lobe pneumonia This note was generated with [employer] dictation software. It may contain incorrect words, spelling, and punctuation that were not noted in review of the chart prior to signing ED Disposition - Plan for ED Patient: Chief Complaint: Neuro S/Sx Referrals: Ricardo Martínez Chi, MD [Primary Care Provider] -
[2018-05-03 13:29] VITALS: O2SAT 96
[2018-05-03 13:30] VITALS: BP 140/72; PULSE 69; RESP 21; TEMP 37.4; O2SAT 96
[2018-05-03 13:31] LABS: Bedside Glucose 133 mg/dL (70-110)
[2018-05-03] MEDS: 0.9% Normal Saline 1,000 ML 150 ML IV (13:36)
--- NOTE | 2018-05-03 13:38 | RAD_ITS ---
STUDY: X-RAY CHEST REASON FOR EXAM: Male, 78 years old. Chest pain and shortness of breath. COPD. TECHNIQUE: Single AP portable view of the chest. COMPARISON: 10/07/2017. FINDINGS: Normal lung volumes. Airspace disease in the right lung base consistent with atelectasis or infiltrate. Probable mild atelectasis in the left lung base. No effusions. Sternal cerclage wires and vascular clips are present from a prior sternotomy and coronary artery bypass graft procedure (CABG). Normal mediastinum and harley. Normal visualized pulmonary arteries. There is atherosclerotic tortuosity of the aortic arch and descending thoracic aorta. Normal visualized thoracic spine. There is degenerative osteoarthritis of the bilateral shoulders. There is no demonstrated abnormality of the visualized soft tissue structures of the upper abdomen. RAD/Chest 1 View (Portable) IMPRESSION: Atelectasis or infiltrate in the right lung base. Electronically Signed: Prateek Rizvi MD at 14:37 EST , Service support ,
[2018-05-03 13:39] LABS: Mucous, Urine 0 SEEN /hpf (<or=2+); Red Blood Cells-Urine 0 SEEN /hpf (0-5); Squamous Epithelial Cells - UA 0 SEEN /hpf (0-5)
[2018-05-03 13:40] LABS: Color, Urine Yellow (Yellow); Glucose, Dipstick Normal (Normal); Ketone-Dipstick 15 mg/dl (Negative); Leukocyte Esterase-Dipstick 25 /ul (Negative); Nitrite-Dipstick Negative (Negative); Occult Blood-Urine Negative /ul (Negative); Protein-Dipstick 30 mg/dl (Negative); Urine Bilirubin Dipstick Negative (Negative); Urine Clarity Clear (Clear); Urine Urobilinogen 4 mg/dl (Normal)
[2018-05-03 13:45] LABS: Absolute Lymphocyte Count 0.79 X10^3/ul (0.83-4.51); Absolute Neutrophil Count 7.8 X10^3/uL (2.0-7.7); Basophil# 0.01 X10^3/uL; Basophil% 0.1 % (0-1); Eosinophil# 0.01 X10^3/uL; Eosinophils% 0.1 % (0-5); Hematocrit 36.9 % (40-54); Hemoglobin 11.6 g/dl (13.0-16.5); Lymphocyte # 0.79 X10^3/ul (4.0); Mean Corp Hgb Conc 31.4 g/gl (32-36); Mean Corpuscular Hgb 28.2 pg (27.0-32.0); Mean Corpuscular Volume 89.8 fL (80-94); Mean Platelet Vol. 10.1 fl (6.2-12.0); Monocyte% 12.2 % (0-10); Neutrophil # 7.82 X10^3/uL (2.7-7.7); Neutrophil % 79.5 % (47-70); Platelet Count 234 K/mm3 (150-450); RBC Distribution Width CV 15.1 % (11.6-14.6); RBC Distribution Width SD 49.2 fl (35.1-43.9); Red Blood Count 4.11 M/mm3 (4.6-6.2); White Blood Count 9.8 K/mm3 (4.4-11.0)
[2018-05-03 13:47] LABS: POSITIVE COUNT NO; POSITIVE DIFFERENTIAL NO; POSITIVE MORPHOLOGY NO
[2018-05-03 13:49] LABS: White Blood Cells 0-5 SEEN /hpf (0-5)
[2018-05-03 13:50] LABS: Bacteria RARE /hpf (None Seen)
[2018-05-03 13:58] LABS: Anion Gap 12 (5-15); BUN 26 mg/dL (7-18); BUN/Creat Ratio 19.7 RATIO (10-20); Calcium,Total 8.6 mg/dL (8.5-10.1); Chloride 105 mmol/L (98-107); Creatinine, Serum 1.32 mg/dL (0.70-1.30); EST Glomerular Filtration Rate 56 mL/min (>60); Est Glom Filt Rate - Afr Amer 67 mL/min (>60); Estimated Creatinine Clearance 53.62 ml/min; Glucose 135 mg/dL (74-106); Sodium Level 142 mmol/L (136-145)
--- NOTE | 2018-05-03 14:55 | ED.RN ---
ROGELIO KHAN SPOKE WITH HER ON THE PHONE.
--- NOTE | 2018-05-03 14:57 | ED.RN ---
STEP DAUGHTER BILL STATES THAT THE [facility] REFUSED TO [facility] FOR UTI ON FRIDAY.
--- NOTE | 2018-05-03 15:04 | ED.DEP ---
ED Disposition - Plan for ED Patient: Chief Complaint: Neuro S/Sx Instructions: Discharge Instructions for Pneumonia Prescriptions: Levofloxacin [Levaquin] 750 mg PO DAILY #10 tab Referrals: Ricardo Martínez Chi, MD [Primary Care Provider] -
[2018-05-03 15:09] VITALS: BP 148/81; PULSE 69; RESP 16; O2SAT 98
[2018-05-03] MEDS: levoFLOXacin 750 MG Tablet PO (15:09)
[2018-05-03 15:11] VITALS: BP 148/81; PULSE 69; RESP 16; O2SAT 99
== END 2018-05-03 16:00 | disposition home or self-care (01) ==
PROVIDERS: Emergency Provider Emergency Medicine; Family Provider Family Medicine Geriatric Medicine; PCP Family Medicine Geriatric Medicine
DX: R40.4 Transient alteration of awareness (principal); J18.9 Pneumonia, unspecified organism; G20 Parkinson's disease; F02.80 Dementia in other diseases classified elsewhere, unspecified severity, without behavioral disturbance, psychotic disturbance, mood disturbance, and anxiety; Z79.82 Long term (current) use of aspirin; Z79.899 Other long term (current) drug therapy
CPT/HCPCS: 71045; 80048; 81001; 82962; 84484; 85025; 93005; 96360; 96361; 99285; J7030; A4216

== ENCOUNTER → 2018-05-06 05:00 | Outpatient (REF) | payer MEDICARE, OTHER, MEDICAID, SELFPAY ==
[2018-05-03 13:01] VITALS: BMI 25.0
[2018-05-06 09:25] LABS: Anion Gap 10 (5-15); BUN 24 mg/dL (7-18); BUN/Creat Ratio 18.2 RATIO (10-20); Calcium,Total 8.8 mg/dL (8.5-10.1); Chloride 108 mmol/L (98-107); Creatinine, Serum 1.32 mg/dL (0.70-1.30); EST Glomerular Filtration Rate 56 mL/min (>60); Est Glom Filt Rate - Afr Amer 67 mL/min (>60); Glucose 93 mg/dL (74-106); Hematocrit 32.9 % (40-54); Hemoglobin 10.5 g/dl (13.0-16.5); Mean Corp Hgb Conc 31.9 g/gl (32-36); Mean Corpuscular Hgb 28.5 pg (27.0-32.0); Mean Corpuscular Volume 89.4 fL (80-94); Mean Platelet Vol. 10.6 fl (6.2-12.0); Platelet Count 303 K/mm3 (150-450); Potassium 4.1 mmol/L (3.5-5.1); RBC Distribution Width SD 48.9 fl (35.1-43.9); Red Blood Count 3.68 M/mm3 (4.6-6.2); Sodium Level 144 mmol/L (136-145); White Blood Count 6.2 K/mm3 (4.4-11.0)
[2018-05-06 09:28] LABS: Scan Indicated on CBC? Y/N NO
== END ==
LOC: OLS.AVED 05:00
PROVIDERS: Visit Provider Family Medicine
DX: R53.83 Other fatigue (principal)
CPT/HCPCS: 36415; 80048; 85027

== ENCOUNTER → 2018-05-25 04:00 | Outpatient (REF) | payer MEDICARE, OTHER, MEDICAID, SELFPAY ==
[2018-05-03 13:01] VITALS: BMI 25.0
[2018-05-25 08:25] LABS: Absolute Lymphocyte Count 1.39 X10^3/ul (0.83-4.51); Absolute Neutrophil Count 1.7 X10^3/uL (2.0-7.7); Basophil# 0.05 X10^3/uL; Basophil% 1.3 % (0-1); Eosinophil# 0.24 X10^3/uL; Eosinophils% 6.2 % (0-5); Hematocrit 35.7 % (40-54); Hemoglobin 11.2 g/dl (13.0-16.5); Lymphocyte # 1.39 X10^3/ul (4.0); Lymphocyte % 35.7 % (19-41); Mean Corp Hgb Conc 31.4 g/gl (32-36); Mean Corpuscular Hgb 28.1 pg (27.0-32.0); Mean Corpuscular Volume 89.5 fL (80-94); Mean Platelet Vol. 9.5 fl (6.2-12.0); Monocyte# 0.47 X10^3/uL; Monocyte% 12.1 % (0-10); Neutrophil # 1.73 X10^3/uL (2.7-7.7); Neutrophil % 44.4 % (47-70); Platelet Count 301 K/mm3 (150-450); RBC Distribution Width CV 15.6 % (11.6-14.6); RBC Distribution Width SD 51.3 fl (35.1-43.9); Red Blood Count 3.99 M/mm3 (4.6-6.2); White Blood Count 3.9 K/mm3 (4.4-11.0)
[2018-05-25 08:30] LABS: POSITIVE COUNT NO; POSITIVE DIFFERENTIAL NO; POSITIVE MORPHOLOGY NO
[2018-05-25 08:35] LABS: ALB/GLOB Ratio 0.9 RATIO (0.9-2.4); AST(SGOT) 17 U/L (15-37); Alanine Aminotransfer ALT/SGPT 15 U/L (16-61); Albumin, Serum 2.7 g/dL (3.2-5.0); Alkaline Phosphatase 74 U/L (45-117); Anion Gap 8 (5-15); BUN 19 mg/dL (7-18); BUN/Creat Ratio 16.7 RATIO (10-20); Calcium,Total 8.4 mg/dL (8.5-10.1); Chloride 109 mmol/L (98-107); Cholesterol 141 mg/dL (200); Creatinine, Serum 1.14 mg/dL (0.70-1.30); EST Glomerular Filtration Rate 66 mL/min (>60); Est Glom Filt Rate - Afr Amer 80 mL/min (>60); Globulin 3.1 g/dL (2.2-4.2); Glucose 95 mg/dL (74-106); High Density Lipoprotein 44 mg/dL; Potassium 4.3 mmol/L (3.5-5.1); Protein, Total 5.8 g/dL (6.4-8.2); Sodium Level 145 mmol/L (136-145); Triglycerides 79 mg/dL; Very Low Density Lipoprotein 16 mg/dL (5-40)
== END ==
LOC: OLS.AVED 04:00
PROVIDERS: Visit Provider Family Medicine
DX: E78.5 Hyperlipidemia, unspecified (principal); R53.83 Other fatigue
CPT/HCPCS: 36415; 80053; 80061; 85025

== ENCOUNTER → 2018-08-24 05:00 | Outpatient (REF) | payer MEDICARE, OTHER, SELFPAY ==
[2018-08-24 08:26] LABS: Absolute Lymphocyte Count 1.26 X10^3/ul (0.83-4.51); Absolute Neutrophil Count 2.6 X10^3/uL (2.0-7.7); Basophil# 0.03 X10^3/uL; Basophil% 0.6 % (0-1); Eosinophil# 0.42 X10^3/uL; Eosinophils% 8.7 % (0-5); Hematocrit 39.8 % (40-54); Hemoglobin 12.4 g/dl (13.0-16.5); Lymphocyte # 1.26 X10^3/ul (4.0); Lymphocyte % 26.1 % (19-41); Mean Corp Hgb Conc 31.2 g/gl (32-36); Mean Corpuscular Hgb 28.4 pg (27.0-32.0); Mean Corpuscular Volume 91.1 fL (80-94); Mean Platelet Vol. 9.7 fl (6.2-12.0); Monocyte# 0.48 X10^3/uL; Neutrophil # 2.63 X10^3/uL (2.7-7.7); Neutrophil % 54.6 % (47-70); Platelet Count 236 K/mm3 (150-450); RBC Distribution Width CV 15.3 % (11.6-14.6); RBC Distribution Width SD 51.5 fl (35.1-43.9); Red Blood Count 4.37 M/mm3 (4.6-6.2); White Blood Count 4.8 K/mm3 (4.4-11.0)
[2018-08-24 08:27] LABS: POSITIVE COUNT NO; POSITIVE DIFFERENTIAL NO; POSITIVE MORPHOLOGY NO
[2018-08-24 09:04] LABS: ALB/GLOB Ratio 1.1 RATIO (0.9-2.4); AST(SGOT) 19 U/L (15-37); Alanine Aminotransfer ALT/SGPT 17 U/L (16-61); Albumin, Serum 3.4 g/dL (3.2-5.0); Alkaline Phosphatase 87 U/L (45-117); Anion Gap 6 (5-15); BUN 20 mg/dL (7-18); BUN/Creat Ratio 15.2 RATIO (10-20); Calcium,Total 8.6 mg/dL (8.5-10.1); Chloride 109 mmol/L (98-107); Cholesterol 153 mg/dL (200); Creatinine, Serum 1.32 mg/dL (0.70-1.30); EST Glomerular Filtration Rate 56 mL/min (>60); Est Glom Filt Rate - Afr Amer 67 mL/min (>60); Globulin 3.2 g/dL (2.2-4.2); Glucose 77 mg/dL (74-106); High Density Lipoprotein 49 mg/dL; Potassium 3.9 mmol/L (3.5-5.1); Protein, Total 6.6 g/dL (6.4-8.2); Sodium Level 143 mmol/L (136-145); Triglycerides 60 mg/dL; Very Low Density Lipoprotein 12 mg/dL (5-40)
[2018-08-25 17:21] VITALS: BMI 27.7
== END ==
LOC: OLS.AVED 05:00
PROVIDERS: Visit Provider Family Medicine
DX: E78.5 Hyperlipidemia, unspecified (principal); R53.83 Other fatigue
CPT/HCPCS: 36415; 80053; 80061; 85025

== ENCOUNTER 2018-08-25 13:00 | Observation (INO) | payer MEDICARE, OTHER, SELFPAY ==
[2018-08-25 13:02] VITALS: BP 140/75; PULSE 76; RESP 18; TEMP 36.9; O2SAT 99; BMI 29.0
--- NOTE | 2018-08-25 13:14 | EKG12_ITS ---
Test Reason : HYPOGLYCEMIA Blood Pressure : / mmHG Vent. Rate : 066 BPM Atrial Rate : 066 BPM P-R Int : 150 ms QRS Dur : 104 ms QT Int : 440 ms P-R-T Axes : 037 027 048 degrees QTc Int : 461 ms Normal sinus rhythm Moderate voltage criteria for LVH, may be normal variant Nonspecific ST abnormality Abnormal ECG Confirmed by CHAGO SALINAS, ALYSSIA ([id number]), editor in chief newspaper HERNANDEZ KAUFMAN ([id number]) on 08/27/2018 11:04:11 AM Referred By: John Rueda Confirmed By:ALYSSIA ANDERS MD
--- NOTE | 2018-08-25 13:14 | RAD_ITS ---
STUDY: X-RAY CHEST REASON FOR EXAM: Male, 78 years old. Hypoglycemia. TECHNIQUE: Single PA view of the chest. COMPARISON: Comparison is made with prior study dated May 03, 2018. FINDINGS: EKG electrodes are seen. Elevation of the right hemidiaphragm. The previously seen right basilar infiltrate has cleared. There is no demonstrated pleural abnormality. Sternal cerclage wires and vascular clips are present from a prior sternotomy and coronary artery bypass graft procedure (CABG). Mild cardiomegaly. Normal mediastinum and harley. Normal visualized pulmonary arteries. There is atherosclerotic calcification of the aortic arch with tortuosity. Normal visualized thoracic spine. Normal visualized ribs, clavicles, and shoulders. There is no demonstrated abnormality of the visualized soft tissue structures of the upper abdomen. RAD/Chest 1 View (Portable) IMPRESSION: Elevation of the right hemidiaphragm. Mild cardiomegaly. No acute abnormality is seen. Electronically Signed: Kieran Harris, at 14:08 EDT , Service support ,
--- NOTE | 2018-08-25 13:14 | CT_ITS ---
STUDY: CT BRAIN WITHOUT CONTRAST REASON FOR EXAM: Male, 78 years old. Confusion. Hypoglycemia. RADIATION DOSAGE (If Supplied By Facility): CTDIvol = ( 60.81 ) mGy, DLP = ( 1158.30 ) mGycm TECHNIQUE: Transaxial CT imaging of the brain was performed without administration of intravenous contrast material. Individualized dose optimization techniques were used for this CT. COMPARISON: Comparison is made with prior study dated October 07, 2016. FINDINGS: Normal soft tissue structures. Normal calvarium. There is mild cerebral atrophy with widening of the extra-axial spaces and ventricular dilatation. There are areas of decreased attenuation within the white matter tracts of the supratentorial brain, consistent with microvascular disease changes. There are small punctate calcifications of the basal ganglia which are seen in the aging brain as a normal variant. Normal brainstem. Normal cerebellum. There is no intracranial hemorrhage. There are no findings of an acute ischemic infarction. Atherosclerotic calcification of the cavernous portions of the internal carotid arteries bilaterally. Normal visualized paranasal sinuses. CT/Brain/Head without Contrast IMPRESSION: Chronic involutional changes of the brain. Electronically Signed: Kieran Harris, at 14:10 EDT , Service support ,
[2018-08-25 13:26] LABS: Absolute Lymphocyte Count 1.19 X10^3/ul (0.83-4.51); Absolute Neutrophil Count 3.7 X10^3/uL (2.0-7.7); Basophil# 0.02 X10^3/uL; Basophil% 0.3 % (0-1); Eosinophil# 0.42 X10^3/uL; Hematocrit 36.3 % (40-54); Hemoglobin 11.5 g/dl (13.0-16.5); Lymphocyte # 1.19 X10^3/ul (4.0); Lymphocyte % 19.7 % (19-41); Mean Corp Hgb Conc 31.7 g/gl (32-36); Mean Corpuscular Volume 91.7 fL (80-94); Mean Platelet Vol. 9.6 fl (6.2-12.0); Monocyte# 0.71 X10^3/uL; Monocyte% 11.8 % (0-10); Neutrophil # 3.68 X10^3/uL (2.7-7.7); POSITIVE COUNT NO; POSITIVE DIFFERENTIAL NO; POSITIVE MORPHOLOGY NO; Platelet Count 204 K/mm3 (150-450); RBC Distribution Width CV 15.3 % (11.6-14.6); RBC Distribution Width SD 51.4 fl (35.1-43.9); Red Blood Count 3.96 M/mm3 (4.6-6.2)
[2018-08-25 13:40] LABS: Anion Gap 10 (5-15); BUN 19 mg/dL (7-18); BUN/Creat Ratio 14.5 RATIO (10-20); Calcium,Total 7.6 mg/dL (8.5-10.1); Chloride 110 mmol/L (98-107); Creatinine, Serum 1.31 mg/dL (0.70-1.30); EST Glomerular Filtration Rate 56 mL/min (>60); Est Glom Filt Rate - Afr Amer 68 mL/min (>60); Estimated Creatinine Clearance 44.96 ml/min; Glucose 408 mg/dL (74-106); Potassium 3.5 mmol/L (3.5-5.1); Sodium Level 147 mmol/L (136-145)
[2018-08-25 13:46] LABS: Bedside Glucose 49 mg/dL (70-110)
[2018-08-25 13:46] LABS: Bedside Glucose 67 mg/dL (70-110)
[2018-08-25] MEDS: Dextrose 50%-Water 25 GM/50 ML DISP.SYRIN IV (14:36)
--- NOTE | 2018-08-25 14:37 | NURSING ---
PT IS EATING MEAL AND ALMOST FINISHED, D50 ONE AMP ADMINISTERED. PT DRANK ORANGE JUICE AND MILK.
[2018-08-25 14:59] LABS: Bacteria 0 SEEN /hpf (None Seen); Mucous, Urine 0 SEEN /hpf (<or=2+); Red Blood Cells-Urine 0 SEEN /hpf (0-5)
[2018-08-25 15:00] VITALS: BP 130/74; PULSE 67; RESP 17; O2SAT 98
[2018-08-25 15:02] LABS: Color, Urine Yellow (Yellow); Glucose, Dipstick 1000 mg/dl (Normal); Ketone-Dipstick Negative (Negative); Leukocyte Esterase-Dipstick 25 /ul (Negative); Nitrite-Dipstick Negative (Negative); Occult Blood-Urine Negative /ul (Negative); Protein-Dipstick 15 mg/dl (Negative); Urine Bilirubin Dipstick Negative (Negative); Urine Clarity Sl. Cloudy (Clear); Urine Urobilinogen Normal (Normal)
[2018-08-25 15:09] LABS: Squamous Epithelial Cells - UA 0-5 SEEN /hpf (0-5); White Blood Cells 0-5 SEEN /hpf (0-5)
[2018-08-25 15:21] LABS: Bedside Glucose 53 mg/dL (70-110)
[2018-08-25 15:25] LABS: Bedside Glucose 179 mg/dL (70-110)
[2018-08-25 16:06] LABS: Anion Gap 8 (5-15); BUN 20 mg/dL (7-18); BUN/Creat Ratio 15.6 RATIO (10-20); Calcium,Total 8.3 mg/dL (8.5-10.1); Chloride 107 mmol/L (98-107); Creatinine, Serum 1.28 mg/dL (0.70-1.30); EST Glomerular Filtration Rate 58 mL/min (>60); Est Glom Filt Rate - Afr Amer 70 mL/min (>60); Estimated Creatinine Clearance 46.02 ml/min; Glucose 208 mg/dL (74-106); Potassium 4.1 mmol/L (3.5-5.1); Sodium Level 143 mmol/L (136-145)
--- NOTE | 2018-08-25 16:15 | ED.DCSUM_ITS ---
- ER Visit Summary Date of Service: 08/25/18 Chief Complaint: Hypoglycemia History of Present Illness: The patient is a 78 M presenting with hypoglycemia. He is presenting from a half-way facility. He was noted to be poorly responsive when staff was getting him for lunch. His blood glucose was 30. He has no history of diabetes and is not on any oral diabetes medication or insulin. No history of similar symptoms. He was given D50 in route but blood glucose is still low. Physical Examination: Vitals within normal limits. He is not in distress. Completely awake and alert. No focal or lateralizing neuro findings. NIH is 0. Test Results: No evidence of infection. He was hyperglycemic on arrival with no obvious cause. Not on insulin. No known history of accidental insulin or oral diabetes medication administration. Emergency Department Course and Treatment: He was given more D50. He was fed a meal tray but remains hypoglycemic. Cause unclear. No evidence of urine infection. CT brain negative. Chest x-ray negative. No white count. I therefore feel he meets criteria for observation. He was started on a D5 drip. Treatment Plan: Admit for observation Disposition: Admit Impression: Initial encounter hyperglycemia, persistent, uncertain etiology This note was generated with [employer] dictation software. It may contain incorrect words, spelling, and punctuation that were not noted in review of the chart prior to signing ED Disposition - Plan for ED Patient: Referrals: Ricardo Martínez Chi, MD [Primary Care Provider] -
[2018-08-25 16:36] VITALS: BP 122/71; PULSE 62; RESP 18
--- NOTE | 2018-08-25 16:46 | PCM.HP.STD ---
Problem List (1) Hypoglycemia Status: Acute (2) Encephalopathy acute Status: Acute (3) S/P PTCA (percutaneous transluminal coronary angioplasty) Status: Resolved Comment: cutting balloon procedure of ostium of PV-RCA (4) Essential (primary) hypertension Status: Chronic (5) Nonrheumatic aortic valve insufficiency Status: Chronic (6) Atherosclerotic heart disease of [place] coronary artery without angina pectoris Status: Chronic Qualifiers: [place] vs. transplanted heart: [place] heart Qualified Code(s): I25.10 - Atherosclerotic heart disease of [place] coronary artery without angina pectoris Comment: S/P cutting balloon to RCA in 2001; (7) Paroxysmal atrial fibrillation Status: Chronic Comment: S/P maze procedure in June 2002; (8) Nonrheumatic tricuspid (valve) insufficiency Status: Chronic (9) Nonrheumatic mitral valve regurgitation Status: Chronic (10) Nonrheumatic aortic (valve) stenosis Status: Chronic (11) History of maze procedure Status: Chronic Comment: For Atrial fibrillation (12) Hyperlipidemia Status: Chronic Qualifiers: Hyperlipidemia type: pure hypercholesterolemia Qualified Code(s): E78.00 - Pure hypercholesterolemia, unspecified; E78.0 - Pure hypercholesterolemia History of Present Illness Date of Admission: 08/25/18 Chief Complaint: Altered mental status The patient is a 78 year old M with history of Parkinson disease and dementia with last admission in September 2017 for acute metabolic and infectious encephalopathy secondary to UTI was sent to ER from [facility] for altered mental status. As per the nursing staff there, patient was minimally responsive, drowsy and lethargic. Upon EMS arrival, glucose was found 36 and D50 was given and glucose was 99 and had recurrent bouts of hypoglycemia even after D50 therefore patient was put on D5W and being admitted. Patient vital signs are stable. Patient does not have a history of diabetes mellitus type 2 insulin or oral hypoglycemic agents but his blood sugar have been 152 in September and sometimes 126-135 other time. No A1c in our record. EKG shows normal sinus rhythm at 63 bpm with LVH. Chest x-ray shows no acute abnormality. Mild cardiomegaly and elevation of right hemidiaphragm UA shows no pyuria, hematuria LE 25. Glucose was 1000. CBC and BMP within normal limit except glucose 208 that was after D50 was given] Past Medical History Past Medical History (Chronic Problems): Chronic Problems (Last Reviewed 12/11/18 @ 12:34 by Donna Santos) Essential (primary) hypertension (Chronic) Nonrheumatic aortic valve insufficiency (Chronic) Atherosclerotic heart disease of [place] coronary artery without angina pectoris (Chronic) S/P cutting balloon to RCA in 2001; Paroxysmal atrial fibrillation (Chronic 06/23/02) S/P maze procedure in June 2002; Nonrheumatic tricuspid (valve) insufficiency (Chronic) Nonrheumatic mitral valve regurgitation (Chronic) Nonrheumatic aortic (valve) stenosis (Chronic) History of maze procedure (Chronic) For Atrial fibrillation Hyperlipidemia (Chronic) Medical History: Medical History (Last Reviewed 05/26/18 @ 12:34 by Donna Santos) Essential (primary) hypertension (Chronic) I10 Nonrheumatic aortic valve insufficiency (Chronic) I35.1 Atherosclerotic heart disease of [place] coronary artery without angina pectoris (Chronic) I25.10 S/P cutting balloon to RCA in 2001; Paroxysmal atrial fibrillation (Chronic) Onset Date: 06/23/02 I48.0 S/P maze procedure in June 2002; Nonrheumatic tricuspid (valve) insufficiency (Chronic) I36.1 Nonrheumatic mitral valve regurgitation (Chronic) I34.0 Nonrheumatic aortic (valve) stenosis (Chronic) I35.0 Hyperlipidemia (Chronic) E78.5 Back pain M54.9 Difficulty balancing R29.818 Shoulder pain M25.519 Syncope and collapse R55 BPH (benign prostatic hyperplasia) N40.0 Dementia F03.90 HTN (hypertension) I10 Parkinson disease G20 Accident due to mechanical fall without injury (Resolved) W19.XXXA Febrile illness (Resolved) R50.9 Fracture of one rib, left side, initial encounter for closed fracture (Resolved) S22.32XA UTI (urinary tract infection) (Resolved) N39.0 Ankle pain (Inactive) M25.579 Atrial tachycardia (Inactive) I47.1 Contusion of left chest wall (Inactive) S20.212A Palpitations (Inactive) R00.2 Allergies No Known Allergies Allergy (Verified 05/26/18 12:34) Home Medications: Ambulatory Orders Medication Instructions Recorded Aspirin 325 mg PO QHS 10/07/17 Pravastatin [Pravachol] 80 mg PO QHS 10/07/17 traMADol [Ultram] 2 tab PO BID PRN 10/07/17 memantine 10 mg tablet 10 mg PO QPM tab 10/31/17 Menthol [Biofreeze] 1 applic TP BID 08/25/18 Metoprolol Tartrate 50 mg PO DAILY 08/25/18 Mirabegron [Myrbetriq] 50 mg PO DAILY 08/25/18 Multivitamin [Daily Multiple 1 tab PO DAILY 08/25/18 Vitamin] Omeprazole 40 mg PO DAILY 08/25/18 Polyethylene Glycol 3350 [Purelax] 17 gm PO DAILY 08/25/18 Sennosides [Senna] 8.6 mg PO QHS 08/25/18 Surgical History: Surgical History (Last Reviewed 05/26/18 @ 12:34 by Donna Santos) S/P PTCA (percutaneous transluminal coronary angioplasty) (Resolved) Onset Date: 05/06/02 Z98.61 cutting balloon procedure of ostium of PV-RCA History of maze procedure (Chronic) Z98.890 For Atrial fibrillation History of left heart catheterization Onset Date: 04/2009 Z98.890 Surgical History: appendectomy, herniorrhaphy, TURP, - - esophagus, right ankle, MAZE procedure. Psychiatric History: No pertinent psych hx Smoking Status: Former smoker - *Family History Maternal Family History: Family History (Last Reviewed 05/26/18 @ 12:34 by Donna Santos) Mother CAD (coronary artery disease) Brother CAD (coronary artery disease) Sister Hypertension History Items: Heart Disease - age 80 Paternal Family History: Family History (Last Reviewed 05/26/18 @ 12:34 by Donna Santos) Mother CAD (coronary artery disease) Brother CAD (coronary artery disease) Sister Hypertension History Items: Heart Disease - age 82 Review of Systems Constitutional: Denies: Chills, Fever, Weight Change HEENT: Denies: Head Aches, Sinus Congestion, Sinus Drainage Cardiovascular: Denies: Chest Pain, Palpitations Respiratory: Denies: Cough, Shortness of breath at rest, Sputum production Gastrointestinal: Denies: Abdominal Pain, Nausea, Vomiting Genitourinary: Reports: Incontinence. Denies: Dysuria Musculoskeletal: Reports: Joint Pain. Denies: Joint Tenderness Skin: Denies: Rash, Wounds Neurological: Denies: Numbness, Tingling, Focal weakness Psychiatric: Denies: Anxiety, Depression, Homicidal Ideations, Suicidal Ideations Hematologic/ Lymphatic: Denies: Easy Bruising, Easy Bleeding Unable to obtain accurate/complete ROS d/t: Patient has dementia and does not recall. VTE Information - Inpt Only VTE Present on Admission: No VTE Mechan Device Prophylaxis: None VTE Pharm Prophylaxis ordered?: Yes Patient Problems: Active and Suspected Problems (Last Reviewed 05/26/18 @ 12:34 by Donna Santos) Hypoglycemia (Acute) Encephalopathy acute (Acute) - Physical Exam General: Alert, Cooperative, Disoriented - Time place and person probably due to dementia, - - Awake HEENT: Atraumatic, PERRLA, EOMI, Normocephalic Oral: Dry Mucosa Neck: Supple, No JVD, Negative Carotid Bruits Lungs: Clear to auscultation, Normal air movement, No rhonchi, No wheeze, No rales Cardiovascular: Regular rate, Regular Rhythm, Normal S1, Normal S2, No murmurs Abdomen: Bowel Sounds Present, Soft, Non Tender, Non-Distended, - - No renal angle tenderness or suprapubic tenderness. Extremities: No edema, Capillary Refill Less than 3 Seconds Skin: No rashes, No breakdown Musculoskeletal: No Tenderness to Palpation of Joints or Extremities, Arthritic Changes, Muscle Wasting Lymphatic: No Cervical, Supraclavicular, or Inguinal Adenopathy Neurological: Cranial nerves II-XII grossly intact, Deep Tendon Reflexes 2+/4 and Symmetrical, Neuro grossly intact Psych/Mental Status: Flat Affect Vital Signs Temp Pulse Resp BP Pulse Ox 98.4 F 62 18 122/71 H 98 08/25/18 13:02 08/25/18 16:36 08/25/18 16:36 08/25/18 16:36 08/25/18 15:00 Weight: 190 lb 14.725 oz Body Mass Index (BMI) 29.0 Finger Stick Blood Glucose 53 Laboratory Tests Past 24 Hrs 08/25/18 08/25/18 08/25/18 13:14 13:14 14:55 WBC 6.0 RBC 3.96 L Hgb 11.5 L Hct 36.3 L MCV 91.7 MCH 29.0 MCHC 31.7 L RDW 15.3 H RDW Differential 51.4 H Plt Count 204 MPV 9.6 Immature Gran % (Auto) 0.200 Neut % (Auto) 61.0 Lymph % (Auto) 19.7 Bucks % (Auto) 11.8 H Eos % (Auto) 7.0 H Baso % (Auto) 0.3 Absolute Neuts (auto) 3.7 Absolute Lymphs (auto) 1.19 Total Counted Not Reportable Sodium 147 H Potassium 3.5 Chloride 110 H Carbon Dioxide 27.0 Anion Gap 10 BUN 19 H Creatinine 1.31 H Estim Creat Clear Calc 44.96 Est GFR (MDRD) Af Amer 68 Est GFR (MDRD) Non-Af 56 L BUN/Creatinine Ratio 14.5 Glucose 408 H Calcium 7.6 L Urine Color Yellow Urine Clarity Sl. Cloudy Urine pH 5.0 Ur Specific [place] 1.020 Urine Protein 15 H Urine Glucose (UA) 1000 H Urine Ketones Negative Urine Occult Blood Negative Urine Nitrite Negative Urine Bilirubin Negative Urine Urobilinogen Normal Ur Leukocyte Esterase 25 H Urine RBC 0 SEEN Urine WBC 0-5 SEEN Ur Squamous Epith Cells 0-5 SEEN Urine Bacteria 0 SEEN Urine Mucus 0 SEEN 08/25/18 15:20 WBC RBC Hgb Hct MCV MCH MCHC RDW RDW Differential Plt Count MPV Immature Gran % (Auto) Neut % (Auto) Lymph % (Auto) Bucks % (Auto) Eos % (Auto) Baso % (Auto) Absolute Neuts (auto) Absolute Lymphs (auto) Total Counted Sodium 143 Potassium 4.1 Chloride 107 Carbon Dioxide 28.0 Anion Gap 8 BUN 20 H Creatinine 1.28 Estim Creat Clear Calc 46.02 Est GFR (MDRD) Af Amer 70 Est GFR (MDRD) Non-Af 58 L BUN/Creatinine Ratio 15.6 Glucose 208 H Calcium 8.3 L Urine Color Urine Clarity Urine pH Ur Specific [place] Urine Protein Urine Glucose (UA) Urine Ketones Urine Occult Blood Urine Nitrite Urine Bilirubin Urine Urobilinogen Ur Leukocyte Esterase Urine RBC Urine WBC Ur Squamous Epith Cells Urine Bacteria Urine Mucus POC Glucose 08/25/18 08/25/18 08/25/18 15:20 14:29 13:42 POC Glucose 179 H 53 L 67 L 08/25/18 13:07 POC Glucose 49 L Assessment/Plan All Active Problems (Last Reviewed 05/26/18 @ 12:34 by Donna Santos) Hypoglycemia (Acute) Encephalopathy acute (Acute) S/P PTCA (percutaneous transluminal coronary angioplasty) (Resolved 05/06/02) Accident due to mechanical fall without injury (Resolved) Febrile illness (Resolved) Fracture of one rib, left side, initial encounter for closed fracture (Resolved) UTI (urinary tract infection) (Resolved) The patient is a 78 year old M with history of Parkinson disease and dementia with last admission in September 2017 for acute metabolic and infectious encephalopathy secondary to UTI was sent to ER from [facility] for altered mental status. As per the nursing staff there, patient was minimally responsive, drowsy and lethargic. Upon EMS arrival, glucose was found 36 and D50 was given and glucose was 99 and had recurrent bouts of hypoglycemia even after D50 therefore patient was put on D5W and being admitted. Patient vital signs are stable. Patient does not have a history of diabetes mellitus type 2 insulin or oral hypoglycemic agents but his blood sugar have been 152 in September and sometimes 126-135 other time. No A1c in our record. EKG shows normal sinus rhythm at 63 bpm with LVH. Chest x-ray shows no acute abnormality. Mild cardiomegaly and elevation of right hemidiaphragm UA shows no pyuria, hematuria LE 25. Glucose was 1000. CBC and BMP within normal limit except glucose 208 that was after D50 was given.] 1. Acute encephalopathy most probably secondary to hypoglycemia, exact etiology unclear possible drug-induced: Patient is being admitted on MedSurg floor. Started on IV fluid D5W at 125 mill per hour in ED and changed to 100 mils per hour. Accu-Cheks every 4 hourly without sliding scale coverage. A1c tomorrow a.m. BMP tomorrow a.m. 2. Parkinson's disease with possible neurogenic bladder: Patient does not remember whether he sees a neurologist for Parkinson disease or not. There is no neurologist office visit in our hospital. Patient has seen Dr. Cameron in the past, indication unclear probably neurogenic bladder 3. CKD stage III: BUN/creatinine 20/1.28. Baseline 4. Dementia possible related to Parkinson disease 5. Other chronic comorbidities include atherosclerotic coronary artery disease, paroxysmal A. fib status post maze procedure in 2002, valvular heart disease, MR, AAS TR and AR. Patient has seen Dr. khan before. Currently no acute issues including chest pain or shortness of breath. Patient had last echo in September 2014 reported as normal LV size with mild concentric LVH, EF 65%. Mild eccentric MR, mild to moderate TR, mild eccentric AR. DVT prophylaxis: On Lovenox 40 mg subcut daily. Living will/advanced directive: Patient has dementia but when discussed in detail about different options including full code, DNR CC arrest and DNR CC with explanation of meaning, he gave a hint of no machine/artificial life support. Probably DNR CC arrest but need to talk further with his who is power of deputy prosecuting attorney for health. Code Visit OBSV E&M: [id number] Initial observation care L3
--- NOTE | 2018-08-25 17:06 | CASEMGMT ---
RN CM Assessment Introduced role of RN CM to patient and daughter Jodee at bedside. Patient is alert, Confused/forgetful. Dtr Jodee Does not appear to know much about patient current status and poor historian. Confirmed lives at [facility] with his Jennifer. Per Jodee Ena should know if patient has a POA or Living Will. Per [facility] Facesheet Step dtr Ena Carney is the Primary Emergency contact #[phone]. Presentation: Admitted for Hypoglycemia. CC: Sent by ECF for possible stroke, Glucose with EMS 36 PCP: Per patient Dr Jonn Martínez, Per [facility] Facesheet Dr Uche Apodaca Specialists: Cardio- Dr Kay, Neuro- Cannot recall name. Preferred Pharmacy: [facility], Per [facility] Facesheet [facility] Dual Prescription Benefit: Yes LNOK: Jennifer Esposito Living Arrangements: [facility], [facility], [facility] Transportation: Non Emergent WC Transport through Insurance. DME: SNF: [facility] DC PLAN: Back to [facility] with no anticipated needs identified. SW to follow for any emerging needs. JOSE Hernández
[2018-08-25 17:21] VITALS: BMI 27.7
[2018-08-25 18:00] VITALS: BP 137/71; PULSE 62; RESP 16; TEMP 36.6; O2SAT 97
[2018-08-25 18:01] LABS: Bedside Glucose 195 mg/dL (70-110)
[2018-08-25] MEDS: Dextrose 5%/0.9% NaCl 1,000 ML 100 ML IV (19:27)
[2018-08-25] MEDS: Enoxaparin 40 MG/0.4 ML Syringe SC (19:27)
--- NOTE | 2018-08-25 19:52 | NURSING ---
attempted to call step daughter, Ena Arenas, at number provided, [phone]. did not get an answer
[2018-08-25] MEDS: Memantine Hydrochloride 10 MG Tablet PO (21:07)
[2018-08-25 21:09] VITALS: BP 127/63; PULSE 67; RESP 16; TEMP 36.8; O2SAT 98
[2018-08-25] MEDS: Pravastatin 80 MG Tablet PO (22:16)
[2018-08-25] MEDS: Aspirin 325 MG Tablet PO (22:16)
[2018-08-25] MEDS: Senna Tablet 1 TABLET PO (22:16)
[2018-08-25 22:26] LABS: Bedside Glucose 122 mg/dL (70-110)
[2018-08-26 02:15] VITALS: BP 124/58; PULSE 70; RESP 16; TEMP 37.1; O2SAT 97
[2018-08-26 02:20] VITALS: O2SAT 98
[2018-08-26 02:26] LABS: Bedside Glucose 99 mg/dL (70-110)
[2018-08-26 06:24] LABS: Anion Gap 8 (5-15); BUN 19 mg/dL (7-18); Calcium,Total 8.5 mg/dL (8.5-10.1); Chloride 111 mmol/L (98-107); Creatinine, Serum 1.27 mg/dL (0.70-1.30); EST Glomerular Filtration Rate 58 mL/min (>60); Est Glom Filt Rate - Afr Amer 70 mL/min (>60); Estimated Creatinine Clearance 46.38 ml/min; Glucose 78 mg/dL (74-106); Sodium Level 146 mmol/L (136-145)
[2018-08-26 06:45] LABS: Bedside Glucose 77 mg/dL (70-110)
[2018-08-26 08:15] LABS: Hemoglobin A1c 5.4 % (4.2-6.3)
[2018-08-26] MEDS: Multivitamins,Therapeutic Tablet 1 TABLET PO (08:24)
[2018-08-26] MEDS: Enoxaparin 40 MG/0.4 ML Syringe SC (08:25)
[2018-08-26] MEDS: Polyethylene Glycol 3350 17 GM PACKET PO (08:26)
[2018-08-26] MEDS: Mirabegron 50 MG TAB.ER.24H PO (08:26)
[2018-08-26] MEDS: Pantoprazole Sodium 40 MG Tablet PO (08:26)
[2018-08-26 08:30] VITALS: BP 155/80; PULSE 66; RESP 16; TEMP 36.7; O2SAT 99
[2018-08-26 08:31] VITALS: O2SAT 96
--- NOTE | 2018-08-26 09:31 | CASEMGMT ---
Social Work Note Pt is listed as being from [facility] and plan is to return. TIFFANIE placed a call to Barby at [facility] confirming if pt is able to return once medically cleared. TIFFANIE waiting for call back. Plan: Return to [facility] Bernice Dangelo MSW, CASE FINISHER
[2018-08-26 10:39] VITALS: PULSE 70
[2018-08-26] MEDS: Metoprolol Tartrate 25 MG Tablet PO (10:39)
[2018-08-26 10:51] LABS: Bedside Glucose 121 mg/dL (70-110)
--- NOTE | 2018-08-26 12:26 | TREXTCAR_ITS ---
- Diet 08/25/18 18:11 Diet: Regular Diet - Routine Orders/Code Status Enema Type: Fleetz Enema Frequency: Daily PRN Suppository Type: Dulcolax 10mg Suppository Frequency: Daily PRN - Problem/Diagnosis (1) Encephalopathy acute Status: Acute Comment: Secondary to hypoglycemia Current Visit: Yes (2) Hypoglycemia Status: Acute Comment: etiology of this is unknown Current Visit: Yes (3) Atherosclerotic heart disease of [place] coronary artery without angina pectoris Status: Chronic Comment: S/P cutting balloon to RCA in 2001; Current Visit: No (4) Essential (primary) hypertension Status: Chronic Current Visit: No (5) History of maze procedure Status: Chronic Comment: For Atrial fibrillation Current Visit: No (6) Hyperlipidemia Status: Chronic Current Visit: No (7) Nonrheumatic aortic (valve) stenosis Status: Chronic Current Visit: No (8) Nonrheumatic aortic valve insufficiency Status: Chronic Current Visit: No (9) Nonrheumatic mitral valve regurgitation Status: Chronic Current Visit: No (10) Nonrheumatic tricuspid (valve) insufficiency Status: Chronic Current Visit: No (11) Paroxysmal atrial fibrillation Status: Chronic Comment: S/P maze procedure in June 2002; Current Visit: No (12) S/P PTCA (percutaneous transluminal coronary angioplasty) Status: Resolved Comment: cutting balloon procedure of ostium of PV-RCA Current Visit: No - Allergies/Procedures Done in Hospital Allergies/Adverse Reactions: Allergies No Known Allergies Allergy (Verified 05/26/18 12:34) Procedures: None - Type of Care/Length of Stay Estimated LOS: More Than 30 Days Type of Care Needed: Skilled Rehab Potential: Fair Prognosis: Fair - Additional Orders/Day of Discharge H&P will serve as current which was dated: 08/25/18 Day of Discharge: 08/26/18 - Follow Up Care Primary Care Physician: Ricardo Martínez Chi, MD [Primary Care Provider] - Please follow up with your Primary Care Physician in: 1 week
--- NOTE | 2018-08-26 12:29 | PCM.DC.SUM ---
Discharge Date and Diagnosis - Problem List Patient Problems: Active and Suspected Problems (Last Reviewed 05/26/18 @ 12:34 by Donna Santos) Hypoglycemia (Acute) etiology of this is unknown Encephalopathy acute (Acute) Secondary to hypoglycemia Date of Admission: 08/25/18 Date of Discharge: 08/26/18 - Primary Discharge Diagnosis Active and Suspected Problems (Last Reviewed 05/26/18 @ 12:34 by Donna Santos) Hypoglycemia (Acute) etiology of this is unknown - suspect he may have received someone else's medication Encephalopathy acute (Acute) Secondary to hypoglycemia - Secondary Discharge Diagnosis Chronic Problems (Last Reviewed 05/26/18 @ 12:34 by Donna Santos) Essential (primary) hypertension (Chronic) Nonrheumatic aortic valve insufficiency (Chronic) Atherosclerotic heart disease of [place] coronary artery without angina pectoris (Chronic) S/P cutting balloon to RCA in 2001; Paroxysmal atrial fibrillation (Chronic 06/23/02) S/P maze procedure in June 2002; Nonrheumatic tricuspid (valve) insufficiency (Chronic) Nonrheumatic mitral valve regurgitation (Chronic) Nonrheumatic aortic (valve) stenosis (Chronic) History of maze procedure (Chronic) For Atrial fibrillation Hyperlipidemia (Chronic) Hospital Course and Treatment Imaging Results: Clinical Impression(s) from Imaging Studies Brain CT 08/25/18 13:14 IMPRESSION: Chronic involutional changes of the brain. Electronically Signed: Kieran Harris, at 14:10 EDT , Service support , Chest X-Ray 08/25/18 13:14 IMPRESSION: Elevation of the right hemidiaphragm. Mild cardiomegaly. No acute abnormality is seen. Electronically Signed: Kieran Harris, at 14:08 EDT , Service support , Laboratory Tests 08/26/18 08/26/18 08/26/18 Range/Units 10:36 05:58 05:24 WBC (4.4-11.0) K/mm3 RBC (4.6-6.2) M/mm3 Hgb (13.0-16.5) g/dl Hct (40-54) % MCV (80-94) fL MCH (27.0-32.0) pg MCHC (32-36) g/gl RDW (11.6-14.6) % RDW Differential (35.1-43.9) fl Plt Count (150-450) K/mm3 MPV (6.2-12.0) fl Immature Gran % (Auto) (0.0-0.9) % Neut % (Auto) (47-70) % Lymph % (Auto) (19-41) % [place] % (Auto) (0-10) % Eos % (Auto) (0-5) % Baso % (Auto) (0-1) % Absolute Neuts (auto) (2.0-7.7) X10^3/uL Absolute Lymphs (auto) (0.83-4.51) X10^3/ul Total Counted Sodium (136-145) mmol/L Potassium (3.5-5.1) mmol/L Chloride (98-107) mmol/L Carbon Dioxide (21.0-32.0) mmol/L Anion Gap (5-15) BUN (7-18) mg/dL Creatinine (0.70-1.30) mg/dL Estim Creat Clear Calc ml/min Est GFR (MDRD) Af Amer (>60) mL/min Est GFR (MDRD) Non-Af (>60) mL/min BUN/Creatinine Ratio (10-20) RATIO Glucose (74-106) mg/dL Hemoglobin A1c 5.4 (4.2-6.3) % Calcium (8.5-10.1) mg/dL Urine Color (Yellow) Urine Clarity (Clear) Urine pH (5.0 - 8.0) Ur Specific [place] (1.002-1.030) Urine Protein (Negative) mg/dl Urine Glucose (UA) (Normal) mg/dl Urine Ketones (Negative) mg/dl Urine Occult Blood (Negative) /ul Urine Nitrite (Negative) Urine Bilirubin (Negative) mg/dL Urine Urobilinogen (Normal) mg/dl Ur Leukocyte Esterase (Negative) /ul Urine RBC (0-5) /hpf Urine WBC (0-5) /hpf Ur Squamous Epith Cells (0-5) /hpf Urine Bacteria (None Seen) /hpf Urine Mucus (<or=2+) /hpf POC Glucose 121 H 77 (70-110) mg/dL 08/26/18 08/26/18 08/25/18 Range/Units 05:24 02:19 22:14 WBC (4.4-11.0) K/mm3 RBC (4.6-6.2) M/mm3 Hgb (13.0-16.5) g/dl Hct (40-54) % MCV (80-94) fL MCH (27.0-32.0) pg MCHC (32-36) g/gl RDW (11.6-14.6) % RDW Differential (35.1-43.9) fl Plt Count (150-450) K/mm3 MPV (6.2-12.0) fl Immature Gran % (Auto) (0.0-0.9) % Neut % (Auto) (47-70) % Lymph % (Auto) (19-41) % [place] % (Auto) (0-10) % Eos % (Auto) (0-5) % Baso % (Auto) (0-1) % Absolute Neuts (auto) (2.0-7.7) X10^3/uL Absolute Lymphs (auto) (0.83-4.51) X10^3/ul Total Counted Sodium 146 H (136-145) mmol/L Potassium 4.0 (3.5-5.1) mmol/L Chloride 111 H (98-107) mmol/L Carbon Dioxide 27.0 (21.0-32.0) mmol/L Anion Gap 8 (5-15) BUN 19 H (7-18) mg/dL Creatinine 1.27 (0.70-1.30) mg/dL Estim Creat Clear Calc 46.38 ml/min Est GFR (MDRD) Af Amer 70 (>60) mL/min Est GFR (MDRD) Non-Af 58 L (>60) mL/min BUN/Creatinine Ratio 15.0 (10-20) RATIO Glucose 78 (74-106) mg/dL Hemoglobin A1c (4.2-6.3) % Calcium 8.5 (8.5-10.1) mg/dL Urine Color (Yellow) Urine Clarity (Clear) Urine pH (5.0 - 8.0) Ur Specific [place] (1.002-1.030) Urine Protein (Negative) mg/dl Urine Glucose (UA) (Normal) mg/dl Urine Ketones (Negative) mg/dl Urine Occult Blood (Negative) /ul Urine Nitrite (Negative) Urine Bilirubin (Negative) mg/dL Urine Urobilinogen (Normal) mg/dl Ur Leukocyte Esterase (Negative) /ul Urine RBC (0-5) /hpf Urine WBC (0-5) /hpf Ur Squamous Epith Cells (0-5) /hpf Urine Bacteria (None Seen) /hpf Urine Mucus (<or=2+) /hpf POC Glucose 99 122 H (70-110) mg/dL 08/25/18 08/25/18 08/25/18 Range/Units 17:52 15:20 15:20 WBC (4.4-11.0) K/mm3 RBC (4.6-6.2) M/mm3 Hgb (13.0-16.5) g/dl Hct (40-54) % MCV (80-94) fL MCH (27.0-32.0) pg MCHC (32-36) g/gl RDW (11.6-14.6) % RDW Differential (35.1-43.9) fl Plt Count (150-450) K/mm3 MPV (6.2-12.0) fl Immature Gran % (Auto) (0.0-0.9) % Neut % (Auto) (47-70) % Lymph % (Auto) (19-41) % [place] % (Auto) (0-10) % Eos % (Auto) (0-5) % Baso % (Auto) (0-1) % Absolute Neuts (auto) (2.0-7.7) X10^3/uL Absolute Lymphs (auto) (0.83-4.51) X10^3/ul Total Counted Sodium 143 (136-145) mmol/L Potassium 4.1 (3.5-5.1) mmol/L Chloride 107 (98-107) mmol/L Carbon Dioxide 28.0 (21.0-32.0) mmol/L Anion Gap 8 (5-15) BUN 20 H (7-18) mg/dL Creatinine 1.28 (0.70-1.30) mg/dL Estim Creat Clear Calc 46.02 ml/min Est GFR (MDRD) Af Amer 70 (>60) mL/min Est GFR (MDRD) Non-Af 58 L (>60) mL/min BUN/Creatinine Ratio 15.6 (10-20) RATIO Glucose 208 H (74-106) mg/dL Hemoglobin A1c (4.2-6.3) % Calcium 8.3 L (8.5-10.1) mg/dL Urine Color (Yellow) Urine Clarity (Clear) Urine pH (5.0 - 8.0) Ur Specific [place] (1.002-1.030) Urine Protein (Negative) mg/dl Urine Glucose (UA) (Normal) mg/dl Urine Ketones (Negative) mg/dl Urine Occult Blood (Negative) /ul Urine Nitrite (Negative) Urine Bilirubin (Negative) mg/dL Urine Urobilinogen (Normal) mg/dl Ur Leukocyte Esterase (Negative) /ul Urine RBC (0-5) /hpf Urine WBC (0-5) /hpf Ur Squamous Epith Cells (0-5) /hpf Urine Bacteria (None Seen) /hpf Urine Mucus (<or=2+) /hpf POC Glucose 195 H 179 H (70-110) mg/dL 08/25/18 08/25/18 08/25/18 Range/Units 14:55 14:29 13:42 WBC (4.4-11.0) K/mm3 RBC (4.6-6.2) M/mm3 Hgb (13.0-16.5) g/dl Hct (40-54) % MCV (80-94) fL MCH (27.0-32.0) pg MCHC (32-36) g/gl RDW (11.6-14.6) % RDW Differential (35.1-43.9) fl Plt Count (150-450) K/mm3 MPV (6.2-12.0) fl Immature Gran % (Auto) (0.0-0.9) % Neut % (Auto) (47-70) % Lymph % (Auto) (19-41) % [place] % (Auto) (0-10) % Eos % (Auto) (0-5) % Baso % (Auto) (0-1) % Absolute Neuts (auto) (2.0-7.7) X10^3/uL Absolute Lymphs (auto) (0.83-4.51) X10^3/ul Total Counted Sodium (136-145) mmol/L Potassium (3.5-5.1) mmol/L Chloride (98-107) mmol/L Carbon Dioxide (21.0-32.0) mmol/L Anion Gap (5-15) BUN (7-18) mg/dL Creatinine (0.70-1.30) mg/dL Estim Creat Clear Calc ml/min Est GFR (MDRD) Af Amer (>60) mL/min Est GFR (MDRD) Non-Af (>60) mL/min BUN/Creatinine Ratio (10-20) RATIO Glucose (74-106) mg/dL Hemoglobin A1c (4.2-6.3) % Calcium (8.5-10.1) mg/dL Urine Color Yellow (Yellow) Urine Clarity Sl. Cloudy (Clear) Urine pH 5.0 (5.0 - 8.0) Ur Specific [place] 1.020 (1.002-1.030) Urine Protein 15 H (Negative) mg/dl Urine Glucose (UA) 1000 H (Normal) mg/dl Urine Ketones Negative (Negative) mg/dl Urine Occult Blood Negative (Negative) /ul Urine Nitrite Negative (Negative) Urine Bilirubin Negative (Negative) mg/dL Urine Urobilinogen Normal (Normal) mg/dl Ur Leukocyte Esterase 25 H (Negative) /ul Urine RBC 0 SEEN (0-5) /hpf Urine WBC 0-5 SEEN (0-5) /hpf Ur Squamous Epith Cells 0-5 SEEN (0-5) /hpf Urine Bacteria 0 SEEN (None Seen) /hpf Urine Mucus 0 SEEN (<or=2+) /hpf POC Glucose 53 L 67 L (70-110) mg/dL 08/25/18 08/25/18 08/25/18 Range/Units 13:14 13:14 13:07 WBC 6.0 (4.4-11.0) K/mm3 RBC 3.96 L (4.6-6.2) M/mm3 Hgb 11.5 L (13.0-16.5) g/dl Hct 36.3 L (40-54) % MCV 91.7 (80-94) fL MCH 29.0 (27.0-32.0) pg MCHC 31.7 L (32-36) g/gl RDW 15.3 H (11.6-14.6) % RDW Differential 51.4 H (35.1-43.9) fl Plt Count 204 (150-450) K/mm3 MPV 9.6 (6.2-12.0) fl Immature Gran % (Auto) 0.200 (0.0-0.9) % Neut % (Auto) 61.0 (47-70) % Lymph % (Auto) 19.7 (19-41) % [place] % (Auto) 11.8 H (0-10) % Eos % (Auto) 7.0 H (0-5) % Baso % (Auto) 0.3 (0-1) % Absolute Neuts (auto) 3.7 (2.0-7.7) X10^3/uL Absolute Lymphs (auto) 1.19 (0.83-4.51) X10^3/ul Total Counted Not Reportable Sodium 147 H (136-145) mmol/L Potassium 3.5 (3.5-5.1) mmol/L Chloride 110 H (98-107) mmol/L Carbon Dioxide 27.0 (21.0-32.0) mmol/L Anion Gap 10 (5-15) BUN 19 H (7-18) mg/dL Creatinine 1.31 H (0.70-1.30) mg/dL Estim Creat Clear Calc 44.96 ml/min Est GFR (MDRD) Af Amer 68 (>60) mL/min Est GFR (MDRD) Non-Af 56 L (>60) mL/min BUN/Creatinine Ratio 14.5 (10-20) RATIO Glucose 408 H (74-106) mg/dL Hemoglobin A1c (4.2-6.3) % Calcium 7.6 L (8.5-10.1) mg/dL Urine Color (Yellow) Urine Clarity (Clear) Urine pH (5.0 - 8.0) Ur Specific [place] (1.002-1.030) Urine Protein (Negative) mg/dl Urine Glucose (UA) (Normal) mg/dl Urine Ketones (Negative) mg/dl Urine Occult Blood (Negative) /ul Urine Nitrite (Negative) Urine Bilirubin (Negative) mg/dL Urine Urobilinogen (Normal) mg/dl Ur Leukocyte Esterase (Negative) /ul Urine RBC (0-5) /hpf Urine WBC (0-5) /hpf Ur Squamous Epith Cells (0-5) /hpf Urine Bacteria (None Seen) /hpf Urine Mucus (<or=2+) /hpf POC Glucose 49 L (70-110) mg/dL none Operations: None Procedures: None Summary of Care Provided: The patient is a 78 year old M with a past medical history of hypertension, nonrheumatic aortic valve insufficiency, coronary artery disease with history of DI, paroxysmal atrial fibrillation (status post Maze procedure) and HLD who resides at a [facility]. He was brought to the emergency room at [facility] on 08/25/2018 because staff noticed that he was very lethargic at lunch. They checked a blood sugar and it was low at 30. He has no history of diabetes mellitus and is not on insulin or any oral hypoglycemic agents. He was given D50 in the ambulance on the way to the hospital but was still low upon arrival in the emergency department. Vital signs were unremarkable at presentation to the emergency room and he did not appear to be in any distress. Following D50 he was completely awake and alert and had no focal neurologic deficits. A CT scan of his brain showed chronic involutional changes only. His NIH score was 0. The white blood cell count was within normal limits. There was no sign of infection on physical examination. He was admitted to the hospital for observation and had no recurrence of her glycemia. The admitting hospitalist decrease the dose of his beta-jory because this is a rare cause of hypoglycemia. On 08/26/2018 he was afebrile with stable vital signs. Most recent BS was 121. The hemoglobin A1c was 5.4%. He was discharged back to the [facility]. PHYSICAL EXAM: GENERAL: alert, appropriate ORAL: moist mucosa, no mucosal lesions NECK: No JVD, supple, trachea midline LUNGS: CTA, symmetric chest expansion HEART: RRR, Normal S1 and S2, no rub, no gallop ABDOMEN: soft, NT, ND, BS present, no guarding with palpation EXTREMITIES: no edema, no cyanosis, no calf tenderness SKIN: No rashes, no breakdown NEUROLOGIC: no focal neurologic deficits PSYCH: appropriate, normal affect, pleasant This note was generated with [employer] dictation software. It may contain incorrect words, spelling, and punctuation that were not noted in checking the note before signing. Patient Problems: Active and Suspected Problems (Last Reviewed 12/11/18 @ 12:34 by Donna Santos) Hypoglycemia (Acute) etiology of this is unknown Encephalopathy acute (Acute) Secondary to hypoglycemia - Physical Exam Vital Signs Temp Pulse Resp BP Pulse Ox 98.0 F 70 16 155/80 H 96 08/26/18 08:30 08/26/18 10:39 08/26/18 08:30 08/26/18 08:30 08/26/18 08:31 Oxygen Delivery Method Room Air Weight: 182 lb 7 oz Body Mass Index (BMI) 27.7 Finger Stick Blood Glucose 53 Intake and Output for Last 24 Hours 08/24/18 08/25/18 08/26/18 23:59 23:59 23:59 Intake Total 460 / 460 1039 / 1039 Output Total 600 / 600 100 / 100 Balance -140 / -140 939 / 939 Laboratory Tests Past 24 Hrs 08/25/18 08/25/18 08/25/18 13:14 13:14 14:55 WBC 6.0 RBC 3.96 L Hgb 11.5 L Hct 36.3 L MCV 91.7 MCH 29.0 MCHC 31.7 L RDW 15.3 H RDW Differential 51.4 H Plt Count 204 MPV 9.6 Immature Gran % (Auto) 0.200 Neut % (Auto) 61.0 Lymph % (Auto) 19.7 [place] % (Auto) 11.8 H Eos % (Auto) 7.0 H Baso % (Auto) 0.3 Absolute Neuts (auto) 3.7 Absolute Lymphs (auto) 1.19 Total Counted Not Reportable Sodium 147 H Potassium 3.5 Chloride 110 H Carbon Dioxide 27.0 Anion Gap 10 BUN 19 H Creatinine 1.31 H Estim Creat Clear Calc 44.96 Est GFR (MDRD) Af Amer 68 Est GFR (MDRD) Non-Af 56 L BUN/Creatinine Ratio 14.5 Glucose 408 H Hemoglobin A1c Calcium 7.6 L Urine Color Yellow Urine Clarity Sl. Cloudy Urine pH 5.0 Ur Specific [place] 1.020 Urine Protein 15 H Urine Glucose (UA) 1000 H Urine Ketones Negative Urine Occult Blood Negative Urine Nitrite Negative Urine Bilirubin Negative Urine Urobilinogen Normal Ur Leukocyte Esterase 25 H Urine RBC 0 SEEN Urine WBC 0-5 SEEN Ur Squamous Epith Cells 0-5 SEEN Urine Bacteria 0 SEEN Urine Mucus 0 SEEN 08/25/18 08/26/18 08/26/18 15:20 05:24 05:24 WBC RBC Hgb Hct MCV MCH MCHC RDW RDW Differential Plt Count MPV Immature Gran % (Auto) Neut % (Auto) Lymph % (Auto) [place] % (Auto) Eos % (Auto) Baso % (Auto) Absolute Neuts (auto) Absolute Lymphs (auto) Total Counted Sodium 143 146 H Potassium 4.1 4.0 Chloride 107 111 H Carbon Dioxide 28.0 27.0 Anion Gap 8 8 BUN 20 H 19 H Creatinine 1.28 1.27 Estim Creat Clear Calc 46.02 46.38 Est GFR (MDRD) Af Amer 70 70 Est GFR (MDRD) Non-Af 58 L 58 L BUN/Creatinine Ratio 15.6 15.0 Glucose 208 H 78 Hemoglobin A1c 5.4 Calcium 8.3 L 8.5 Urine Color Urine Clarity Urine pH Ur Specific [place] Urine Protein Urine Glucose (UA) Urine Ketones Urine Occult Blood Urine Nitrite Urine Bilirubin Urine Urobilinogen Ur Leukocyte Esterase Urine RBC Urine WBC Ur Squamous Epith Cells Urine Bacteria Urine Mucus POC Glucose 08/26/18 08/26/18 08/26/18 10:36 05:58 02:19 POC Glucose 121 H 77 99 08/25/18 08/25/18 08/25/18 22:14 17:52 15:20 POC Glucose 122 H 195 H 179 H 08/25/18 08/25/18 08/25/18 14:29 13:42 13:07 POC Glucose 53 L 67 L 49 L Home Medications: Medications to take at Discharge Aspirin 325 mg PO QHS 10/07/17 Pravastatin [Pravachol] 80 mg PO QHS 10/07/17 traMADol [Ultram] 2 tab PO BID PRN 10/07/17 memantine 10 mg tablet 10 mg PO QPM tab 10/31/17 Menthol [Biofreeze] 1 applic TP BID 08/25/18 Mirabegron [Myrbetriq] 50 mg PO DAILY 08/25/18 Multivitamin [Daily Multiple Vitamin] 1 tab PO DAILY 08/25/18 Omeprazole 40 mg PO DAILY 08/25/18 Polyethylene Glycol 3350 [Purelax] 17 gm PO DAILY 08/25/18 Sennosides [Senna] 8.6 mg PO QHS 08/25/18 Metoprolol Tartrate [Lopressor (beta jory)] 25 mg PO DAILY tablet 08/26/18 Primary Care Physician: Ricardo Martínez Chi, MD [Primary Care Provider] - Please follow up with your Primary Care Physician in: 1 week Disposition: Group Home facility Minutes spent on discharge:: 30 Patient Condition:: Stable Medical Necessity - Tobacco Use Smoking Status: Former smoker Meaningful Use Info Meaningful Use Diagnoses (Choose all that apply): None applicable Code Visit OBSV E&M: 75334 Observation care discharge
--- NOTE | 2018-08-26 12:36 | DS.PCM_ITS ---
Discharge Date and Diagnosis - Problem List Patient Problems: Active and Suspected Problems (Last Reviewed 05/26/18 @ 12:34 by Donna Santos) Hypoglycemia (Acute) etiology of this is unknown Encephalopathy acute (Acute) Secondary to hypoglycemia Date of Admission: 08/25/18 Date of Discharge: 08/26/18 - Primary Discharge Diagnosis Active and Suspected Problems (Last Reviewed 05/26/18 @ 12:34 by Donna Santos) Hypoglycemia (Acute) etiology of this is unknown - suspect he may have received someone else's medication Encephalopathy acute (Acute) Secondary to hypoglycemia - Secondary Discharge Diagnosis Chronic Problems (Last Reviewed 05/26/18 @ 12:34 by Donna Santos) Essential (primary) hypertension (Chronic) Nonrheumatic aortic valve insufficiency (Chronic) Atherosclerotic heart disease of [place] coronary artery without angina pectoris (Chronic) S/P cutting balloon to RCA in 2001; Paroxysmal atrial fibrillation (Chronic 06/23/02) S/P maze procedure in June 2002; Nonrheumatic tricuspid (valve) insufficiency (Chronic) Nonrheumatic mitral valve regurgitation (Chronic) Nonrheumatic aortic (valve) stenosis (Chronic) History of maze procedure (Chronic) For Atrial fibrillation Hyperlipidemia (Chronic) Hospital Course and Treatment Imaging Results: Clinical Impression(s) from Imaging Studies Brain CT 08/25/18 13:14 IMPRESSION: Chronic involutional changes of the brain. Electronically Signed: Kieran Harris, at 14:10 EDT , Service support , Chest X-Ray 08/25/18 13:14 IMPRESSION: Elevation of the right hemidiaphragm. Mild cardiomegaly. No acute abnormality is seen. Electronically Signed: Kieran Harris, at 14:08 EDT , Service support , Laboratory Tests 08/26/18 08/26/18 08/26/18 Range/Units 10:36 05:58 05:24 WBC (4.4-11.0) K/mm3 RBC (4.6-6.2) M/mm3 Hgb (13.0-16.5) g/dl Hct (40-54) % MCV (80-94) fL MCH (27.0-32.0) pg MCHC (32-36) g/gl RDW (11.6-14.6) % RDW Differential (35.1-43.9) fl Plt Count (150-450) K/mm3 MPV (6.2-12.0) fl Immature Gran % (Auto) (0.0-0.9) % Neut % (Auto) (47-70) % Lymph % (Auto) (19-41) % Cole % (Auto) (0-10) % Eos % (Auto) (0-5) % Baso % (Auto) (0-1) % Absolute Neuts (auto) (2.0-7.7) X10^3/uL Absolute Lymphs (auto) (0.83-4.51) X10^3/ul Total Counted Sodium (136-145) mmol/L Potassium (3.5-5.1) mmol/L Chloride (98-107) mmol/L Carbon Dioxide (21.0-32.0) mmol/L Anion Gap (5-15) BUN (7-18) mg/dL Creatinine (0.70-1.30) mg/dL Estim Creat Clear Calc ml/min Est GFR (MDRD) Af Amer (>60) mL/min Est GFR (MDRD) Non-Af (>60) mL/min BUN/Creatinine Ratio (10-20) RATIO Glucose (74-106) mg/dL Hemoglobin A1c 5.4 (4.2-6.3) % Calcium (8.5-10.1) mg/dL Urine Color (Yellow) Urine Clarity (Clear) Urine pH (5.0 - 8.0) Ur Specific Carnegie (1.002-1.030) Urine Protein (Negative) mg/dl Urine Glucose (UA) (Normal) mg/dl Urine Ketones (Negative) mg/dl Urine Occult Blood (Negative) /ul Urine Nitrite (Negative) Urine Bilirubin (Negative) mg/dL Urine Urobilinogen (Normal) mg/dl Ur Leukocyte Esterase (Negative) /ul Urine RBC (0-5) /hpf Urine WBC (0-5) /hpf Ur Squamous Epith Cells (0-5) /hpf Urine Bacteria (None Seen) /hpf Urine Mucus (<or=2+) /hpf POC Glucose 121 H 77 (70-110) mg/dL 08/26/18 08/26/18 08/25/18 Range/Units 05:24 02:19 22:14 WBC (4.4-11.0) K/mm3 RBC (4.6-6.2) M/mm3 Hgb (13.0-16.5) g/dl Hct (40-54) % MCV (80-94) fL MCH (27.0-32.0) pg MCHC (32-36) g/gl RDW (11.6-14.6) % RDW Differential (35.1-43.9) fl Plt Count (150-450) K/mm3 MPV (6.2-12.0) fl Immature Gran % (Auto) (0.0-0.9) % Neut % (Auto) (47-70) % Lymph % (Auto) (19-41) % Cole % (Auto) (0-10) % Eos % (Auto) (0-5) % Baso % (Auto) (0-1) % Absolute Neuts (auto) (2.0-7.7) X10^3/uL Absolute Lymphs (auto) (0.83-4.51) X10^3/ul Total Counted Sodium 146 H (136-145) mmol/L Potassium 4.0 (3.5-5.1) mmol/L Chloride 111 H (98-107) mmol/L Carbon Dioxide 27.0 (21.0-32.0) mmol/L Anion Gap 8 (5-15) BUN 19 H (7-18) mg/dL Creatinine 1.27 (0.70-1.30) mg/dL Estim Creat Clear Calc 46.38 ml/min Est GFR (MDRD) Af Amer 70 (>60) mL/min Est GFR (MDRD) Non-Af 58 L (>60) mL/min BUN/Creatinine Ratio 15.0 (10-20) RATIO Glucose 78 (74-106) mg/dL Hemoglobin A1c (4.2-6.3) % Calcium 8.5 (8.5-10.1) mg/dL Urine Color (Yellow) Urine Clarity (Clear) Urine pH (5.0 - 8.0) Ur Specific [place] (1.002-1.030) Urine Protein (Negative) mg/dl Urine Glucose (UA) (Normal) mg/dl Urine Ketones (Negative) mg/dl Urine Occult Blood (Negative) /ul Urine Nitrite (Negative) Urine Bilirubin (Negative) mg/dL Urine Urobilinogen (Normal) mg/dl Ur Leukocyte Esterase (Negative) /ul Urine RBC (0-5) /hpf Urine WBC (0-5) /hpf Ur Squamous Epith Cells (0-5) /hpf Urine Bacteria (None Seen) /hpf Urine Mucus (<or=2+) /hpf POC Glucose 99 122 H (70-110) mg/dL 08/25/18 08/25/18 08/25/18 Range/Units 17:52 15:20 15:20 WBC (4.4-11.0) K/mm3 RBC (4.6-6.2) M/mm3 Hgb (13.0-16.5) g/dl Hct (40-54) % MCV (80-94) fL MCH (27.0-32.0) pg MCHC (32-36) g/gl RDW (11.6-14.6) % RDW Differential (35.1-43.9) fl Plt Count (150-450) K/mm3 MPV (6.2-12.0) fl Immature Gran % (Auto) (0.0-0.9) % Neut % (Auto) (47-70) % Lymph % (Auto) (19-41) % Cole % (Auto) (0-10) % Eos % (Auto) (0-5) % Baso % (Auto) (0-1) % Absolute Neuts (auto) (2.0-7.7) X10^3/uL Absolute Lymphs (auto) (0.83-4.51) X10^3/ul Total Counted Sodium 143 (136-145) mmol/L Potassium 4.1 (3.5-5.1) mmol/L Chloride 107 (98-107) mmol/L Carbon Dioxide 28.0 (21.0-32.0) mmol/L Anion Gap 8 (5-15) BUN 20 H (7-18) mg/dL Creatinine 1.28 (0.70-1.30) mg/dL Estim Creat Clear Calc 46.02 ml/min Est GFR (MDRD) Af Amer 70 (>60) mL/min Est GFR (MDRD) Non-Af 58 L (>60) mL/min BUN/Creatinine Ratio 15.6 (10-20) RATIO Glucose 208 H (74-106) mg/dL Hemoglobin A1c (4.2-6.3) % Calcium 8.3 L (8.5-10.1) mg/dL Urine Color (Yellow) Urine Clarity (Clear) Urine pH (5.0 - 8.0) Ur Specific [place] (1.002-1.030) Urine Protein (Negative) mg/dl Urine Glucose (UA) (Normal) mg/dl Urine Ketones (Negative) mg/dl Urine Occult Blood (Negative) /ul Urine Nitrite (Negative) Urine Bilirubin (Negative) mg/dL Urine Urobilinogen (Normal) mg/dl Ur Leukocyte Esterase (Negative) /ul Urine RBC (0-5) /hpf Urine WBC (0-5) /hpf Ur Squamous Epith Cells (0-5) /hpf Urine Bacteria (None Seen) /hpf Urine Mucus (<or=2+) /hpf POC Glucose 195 H 179 H (70-110) mg/dL 08/25/18 08/25/18 08/25/18 Range/Units 14:55 14:29 13:42 WBC (4.4-11.0) K/mm3 RBC (4.6-6.2) M/mm3 Hgb (13.0-16.5) g/dl Hct (40-54) % MCV (80-94) fL MCH (27.0-32.0) pg MCHC (32-36) g/gl RDW (11.6-14.6) % RDW Differential (35.1-43.9) fl Plt Count (150-450) K/mm3 MPV (6.2-12.0) fl Immature Gran % (Auto) (0.0-0.9) % Neut % (Auto) (47-70) % Lymph % (Auto) (19-41) % Cole % (Auto) (0-10) % Eos % (Auto) (0-5) % Baso % (Auto) (0-1) % Absolute Neuts (auto) (2.0-7.7) X10^3/uL Absolute Lymphs (auto) (0.83-4.51) X10^3/ul Total Counted Sodium (136-145) mmol/L Potassium (3.5-5.1) mmol/L Chloride (98-107) mmol/L Carbon Dioxide (21.0-32.0) mmol/L Anion Gap (5-15) BUN (7-18) mg/dL Creatinine (0.70-1.30) mg/dL Estim Creat Clear Calc ml/min Est GFR (MDRD) Af Amer (>60) mL/min Est GFR (MDRD) Non-Af (>60) mL/min BUN/Creatinine Ratio (10-20) RATIO Glucose (74-106) mg/dL Hemoglobin A1c (4.2-6.3) % Calcium (8.5-10.1) mg/dL Urine Color Yellow (Yellow) Urine Clarity Sl. Cloudy (Clear) Urine pH 5.0 (5.0 - 8.0) Ur Specific [place] 1.020 (1.002-1.030) Urine Protein 15 H (Negative) mg/dl Urine Glucose (UA) 1000 H (Normal) mg/dl Urine Ketones Negative (Negative) mg/dl Urine Occult Blood Negative (Negative) /ul Urine Nitrite Negative (Negative) Urine Bilirubin Negative (Negative) mg/dL Urine Urobilinogen Normal (Normal) mg/dl Ur Leukocyte Esterase 25 H (Negative) /ul Urine RBC 0 SEEN (0-5) /hpf Urine WBC 0-5 SEEN (0-5) /hpf Ur Squamous Epith Cells 0-5 SEEN (0-5) /hpf Urine Bacteria 0 SEEN (None Seen) /hpf Urine Mucus 0 SEEN (<or=2+) /hpf POC Glucose 53 L 67 L (70-110) mg/dL 08/25/18 08/25/18 08/25/18 Range/Units 13:14 13:14 13:07 WBC 6.0 (4.4-11.0) K/mm3 RBC 3.96 L (4.6-6.2) M/mm3 Hgb 11.5 L (13.0-16.5) g/dl Hct 36.3 L (40-54) % MCV 91.7 (80-94) fL MCH 29.0 (27.0-32.0) pg MCHC 31.7 L (32-36) g/gl RDW 15.3 H (11.6-14.6) % RDW Differential 51.4 H (35.1-43.9) fl Plt Count 204 (150-450) K/mm3 MPV 9.6 (6.2-12.0) fl Immature Gran % (Auto) 0.200 (0.0-0.9) % Neut % (Auto) 61.0 (47-70) % Lymph % (Auto) 19.7 (19-41) % Cole % (Auto) 11.8 H (0-10) % Eos % (Auto) 7.0 H (0-5) % Baso % (Auto) 0.3 (0-1) % Absolute Neuts (auto) 3.7 (2.0-7.7) X10^3/uL Absolute Lymphs (auto) 1.19 (0.83-4.51) X10^3/ul Total Counted Not Reportable Sodium 147 H (136-145) mmol/L Potassium 3.5 (3.5-5.1) mmol/L Chloride 110 H (98-107) mmol/L Carbon Dioxide 27.0 (21.0-32.0) mmol/L Anion Gap 10 (5-15) BUN 19 H (7-18) mg/dL Creatinine 1.31 H (0.70-1.30) mg/dL Estim Creat Clear Calc 44.96 ml/min Est GFR (MDRD) Af Amer 68 (>60) mL/min Est GFR (MDRD) Non-Af 56 L (>60) mL/min BUN/Creatinine Ratio 14.5 (10-20) RATIO Glucose 408 H (74-106) mg/dL Hemoglobin A1c (4.2-6.3) % Calcium 7.6 L (8.5-10.1) mg/dL Urine Color (Yellow) Urine Clarity (Clear) Urine pH (5.0 - 8.0) Ur Specific [place] (1.002-1.030) Urine Protein (Negative) mg/dl Urine Glucose (UA) (Normal) mg/dl Urine Ketones (Negative) mg/dl Urine Occult Blood (Negative) /ul Urine Nitrite (Negative) Urine Bilirubin (Negative) mg/dL Urine Urobilinogen (Normal) mg/dl Ur Leukocyte Esterase (Negative) /ul Urine RBC (0-5) /hpf Urine WBC (0-5) /hpf Ur Squamous Epith Cells (0-5) /hpf Urine Bacteria (None Seen) /hpf Urine Mucus (<or=2+) /hpf POC Glucose 49 L (70-110) mg/dL none Operations: None Procedures: None Summary of Care Provided: The patient is a 78 year old M with a past medical history of hypertension, nonrheumatic aortic valve insufficiency, coronary artery disease with history of DI, paroxysmal atrial fibrillation (status post Maze procedure) and HLD who resides at a OR. He was brought to the emergency room at [facility] on 08/25/2018 because staff noticed that he was very lethargic at lunch. They checked a blood sugar and it was low at 30. He has no history of diabetes mellitus and is not on insulin or any oral hypoglycemic agents. He was given D50 in the ambulance on the way to the hospital but was still low upon arrival in the emergency department. Vital signs were unremarkable at presentation to the emergency room and he did not appear to be in any distress. Following D50 he was completely awake and alert and had no focal neurologic deficits. A CT scan of his brain showed chronic involutional changes only. His NIH score was 0. The white blood cell count was within normal limits. There was no sign of infection on physical examination. He was admitted to the hospital for observation and had no recurrence of her glycemia. The admitting hospitalist decrease the dose of his beta-jory because this is a rare cause of hypoglycemia. On 08/26/2018 he was afebrile with stable vital signs. Most recent BS was 121. The hemoglobin A1c was 5.4%. He was discharged back to the OR. PHYSICAL EXAM: GENERAL: alert, appropriate ORAL: moist mucosa, no mucosal lesions NECK: No JVD, supple, trachea midline LUNGS: CTA, symmetric chest expansion HEART: RRR, Normal S1 and S2, no rub, no gallop ABDOMEN: soft, NT, ND, BS present, no guarding with palpation EXTREMITIES: no edema, no cyanosis, no calf tenderness SKIN: No rashes, no breakdown NEUROLOGIC: no focal neurologic deficits PSYCH: appropriate, normal affect, pleasant This note was generated with [employer] dictation software. It may contain incorrect words, spelling, and punctuation that were not noted in checking the note before signing. Patient Problems: Active and Suspected Problems (Last Reviewed 12/11/18 @ 12:34 by Donna Santos) Hypoglycemia (Acute) etiology of this is unknown Encephalopathy acute (Acute) Secondary to hypoglycemia - Physical Exam Vital Signs Temp Pulse Resp BP Pulse Ox 98.0 F 70 16 155/80 H 96 08/26/18 08:30 08/26/18 10:39 08/26/18 08:30 08/26/18 08:30 08/26/18 08:31 Oxygen Delivery Method Room Air Weight: 182 lb 7 oz Body Mass Index (BMI) 27.7 Finger Stick Blood Glucose 53 Intake and Output for Last 24 Hours 08/24/18 08/25/18 08/26/18 23:59 23:59 23:59 Intake Total 460 / 460 1039 / 1039 Output Total 600 / 600 100 / 100 Balance -140 / -140 939 / 939 Laboratory Tests Past 24 Hrs 08/25/18 08/25/18 08/25/18 13:14 13:14 14:55 WBC 6.0 RBC 3.96 L Hgb 11.5 L Hct 36.3 L MCV 91.7 MCH 29.0 MCHC 31.7 L RDW 15.3 H RDW Differential 51.4 H Plt Count 204 MPV 9.6 Immature Gran % (Auto) 0.200 Neut % (Auto) 61.0 Lymph % (Auto) 19.7 Cole % (Auto) 11.8 H Eos % (Auto) 7.0 H Baso % (Auto) 0.3 Absolute Neuts (auto) 3.7 Absolute Lymphs (auto) 1.19 Total Counted Not Reportable Sodium 147 H Potassium 3.5 Chloride 110 H Carbon Dioxide 27.0 Anion Gap 10 BUN 19 H Creatinine 1.31 H Estim Creat Clear Calc 44.96 Est GFR (MDRD) Af Amer 68 Est GFR (MDRD) Non-Af 56 L BUN/Creatinine Ratio 14.5 Glucose 408 H Hemoglobin A1c Calcium 7.6 L Urine Color Yellow Urine Clarity Sl. Cloudy Urine pH 5.0 Ur Specific [place] 1.020 Urine Protein 15 H Urine Glucose (UA) 1000 H Urine Ketones Negative Urine Occult Blood Negative Urine Nitrite Negative Urine Bilirubin Negative Urine Urobilinogen Normal Ur Leukocyte Esterase 25 H Urine RBC 0 SEEN Urine WBC 0-5 SEEN Ur Squamous Epith Cells 0-5 SEEN Urine Bacteria 0 SEEN Urine Mucus 0 SEEN 08/25/18 08/26/18 08/26/18 15:20 05:24 05:24 WBC RBC Hgb Hct MCV MCH MCHC RDW RDW Differential Plt Count MPV Immature Gran % (Auto) Neut % (Auto) Lymph % (Auto) Cole % (Auto) Eos % (Auto) Baso % (Auto) Absolute Neuts (auto) Absolute Lymphs (auto) Total Counted Sodium 143 146 H Potassium 4.1 4.0 Chloride 107 111 H Carbon Dioxide 28.0 27.0 Anion Gap 8 8 BUN 20 H 19 H Creatinine 1.28 1.27 Estim Creat Clear Calc 46.02 46.38 Est GFR (MDRD) Af Amer 70 70 Est GFR (MDRD) Non-Af 58 L 58 L BUN/Creatinine Ratio 15.6 15.0 Glucose 208 H 78 Hemoglobin A1c 5.4 Calcium 8.3 L 8.5 Urine Color Urine Clarity Urine pH Ur Specific Carnegie Urine Protein Urine Glucose (UA) Urine Ketones Urine Occult Blood Urine Nitrite Urine Bilirubin Urine Urobilinogen Ur Leukocyte Esterase Urine RBC Urine WBC Ur Squamous Epith Cells Urine Bacteria Urine Mucus POC Glucose 08/26/18 08/26/18 08/26/18 10:36 05:58 02:19 POC Glucose 121 H 77 99 08/25/18 08/25/18 08/25/18 22:14 17:52 15:20 POC Glucose 122 H 195 H 179 H 08/25/18 08/25/18 08/25/18 14:29 13:42 13:07 POC Glucose 53 L 67 L 49 L Home Medications: Medications to take at Discharge Aspirin 325 mg PO QHS 10/07/17 Pravastatin [Pravachol] 80 mg PO QHS 10/07/17 traMADol [Ultram] 2 tab PO BID PRN 10/07/17 memantine 10 mg tablet 10 mg PO QPM tab 10/31/17 Menthol [Biofreeze] 1 applic TP BID 08/25/18 Mirabegron [Myrbetriq] 50 mg PO DAILY 08/25/18 Multivitamin [Daily Multiple Vitamin] 1 tab PO DAILY 08/25/18 Omeprazole 40 mg PO DAILY 08/25/18 Polyethylene Glycol 3350 [Purelax] 17 gm PO DAILY 08/25/18 Sennosides [Senna] 8.6 mg PO QHS 08/25/18 Metoprolol Tartrate [Lopressor (beta jory)] 25 mg PO DAILY tablet 08/26/18 Primary Care Physician: Ricardo Martínez Chi, MD [Primary Care Provider] - Please follow up with your Primary Care Physician in: 1 week Disposition: Longterm facility Minutes spent on discharge:: 30 Patient Condition:: Stable Medical Necessity - Tobacco Use Smoking Status: Former smoker Meaningful Use Info Meaningful Use Diagnoses (Choose all that apply): None applicable Code Visit OBSV E&M: 02514 Observation care discharge
--- NOTE | 2018-08-26 14:00 | CASEMGMT ---
Social Work Note Physician is discharging pt today. TIFFANIE faxed completed discharge paperwork to [facility] [place] including transfer to extended care facility, signed medication list and any scripts. Originals in SNF folder and copy on pt's chart. HENS is not needed as pt is senior living at [facility] [place] and will be returning senior living. TIFFANIE spoke with RN who states pt is able to be transported via cot. TIFFANIE placed a call to [facility] and arranged for transportation for 5:00pm via cot. Transportation form on SNF folder and copy on pt's chart. TIFFANIE updated pt's son Bimal and pt's step daughter Ena on discharge and transportation time for today. Ena states she would like RN to call her. TIFFANIE spoke with RN and informed RN to call pt's step daughter Ena and number provided to call. TIFFANIE placed call to Barby at [facility] [place] and updated her on transportation time. 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 Bernice Dangelo ELIGIBILITY SUPERVISOR, MARKETING PROPOSAL SPECIALIST
[2018-08-26 14:30] VITALS: BP 140/90; PULSE 68; RESP 16; TEMP 36.9; O2SAT 98
[2018-08-26 17:01] LABS: Bedside Glucose 87 mg/dL (70-110)
== END 2018-08-26 17:05 | disposition skilled nursing facility (03) ==
LOC: ED 14:02 → MS3 16:31
PROVIDERS: Admitting Provider Internal Medicine; Emergency Provider Emergency Medicine; Family Provider Family Medicine Geriatric Medicine; PCP Family Medicine Geriatric Medicine; Referring Provider Internal Medicine; Visit Provider Internal Medicine
DX: E16.2 Hypoglycemia, unspecified (principal); G93.40 Encephalopathy, unspecified; I25.10 Atherosclerotic heart disease of native coronary artery without angina pectoris; I48.0 Paroxysmal atrial fibrillation; E78.5 Hyperlipidemia, unspecified; G20 Parkinson's disease; F02.80 Dementia in other diseases classified elsewhere, unspecified severity, without behavioral disturbance, psychotic disturbance, mood disturbance, and anxiety; N40.0 Benign prostatic hyperplasia without lower urinary tract symptoms; Z79.899 Other long term (current) drug therapy; Z79.82 Long term (current) use of aspirin; Z87.891 Personal history of nicotine dependence; I12.9 Hypertensive chronic kidney disease with stage 1 through stage 4 chronic kidney disease, or unspecified chronic kidney disease; N18.3 Chronic kidney disease, stage 3 (moderate); R29.700 NIHSS score 0
CPT/HCPCS: 36415; 70450; 71045; 80048; 81001; 82962; 83036; 85025; 93005; 96360; 96361; 96372; 97802; 99218; 99285; J7030; A4216; G0378

== ENCOUNTER → 2019-12-24 10:34 | Outpatient (CLI) | payer MEDICARE, OTHER, SELFPAY ==
[2019-12-24 10:32] VITALS: BMI 27.5
--- NOTE | 2019-12-24 10:34 | RAD_ITS ---
STUDY: X-RAY - PELVIS AND RIGHT HIP REASON FOR EXAM: Male, 79 years old. FELL 5 DAYS AGO TECHNIQUE: 3 views of the pelvis and hip. COMPARISON: None. FINDINGS: There is a non-specific bowel gas pattern. Normal visualized soft tissue structures. Normal bilateral iliac wings, sacroiliac joints and visualized sacrum. Normal bilateral superior and inferior pubic rami. Normal pubic symphysis. Normal bilateral ischial tuberosities. Subcapital impacted fracture of the right femur. Normal acetabulum. Normal hip joint. RAD/HIP, UNI W/ Pelvis 2-3 Views IMPRESSION: Subcapital impacted fracture of the right femur. Electronically Signed: Ganesh Stephens DO at 8:37 EDT Tel [phone], Service support ,
== END ==
PROVIDERS: PCP Family Medicine Geriatric Medicine; Referring Provider Orthopaedic Surgery; Visit Provider Orthopaedic Surgery
DX: M25.551 Pain in right hip (principal)
CPT/HCPCS: 73502

== ENCOUNTER 2019-12-24 11:22 | Inpatient (IN) | payer MEDICARE, OTHER, MEDICAID, SELFPAY ==
[2019-12-24 10:32] VITALS: BMI 27.5
[2019-12-24 11:23] VITALS: BP 101/65; PULSE 67; RESP 20; TEMP 36.5; O2SAT 98; BMI 25.9
--- NOTE | 2019-12-24 11:33 | EKG12_ITS ---
Test Reason : DYSRHYTHMIA Blood Pressure : / mmHG Vent. Rate : 067 BPM Atrial Rate : 067 BPM P-R Int : 188 ms QRS Dur : 090 ms QT Int : 402 ms P-R-T Axes : 029 011 028 degrees QTc Int : 424 ms Normal sinus rhythm Normal ECG Confirmed by CHAGO SALINAS, ALYSSIA ([id number]), marketing editor HERNANDEZ KAUFMAN ([id number]) on 12/27/2019 8:23:16 AM Referred By: NESTOR Confirmed By:ALYSSIA ANDERS MD
--- NOTE | 2019-12-24 11:34 | RAD_ITS ---
STUDY: X-RAY CHEST REASON FOR EXAM: Male, 79 years old. PRE-OP. HX COPD, DEMENTIA TECHNIQUE: Single AP portable view of the chest. COMPARISON: Comparison is made with prior examination dated August 25, 2018. FINDINGS: Stable elevation of the right hemidiaphragm. Minimal linear scarring at the lung bases. There is no demonstrated pleural abnormality. Sternal cerclage wires and vascular clips are present from a prior sternotomy and coronary artery bypass graft procedure (CABG). Normal mediastinum and harley. Normal visualized pulmonary arteries. There is atherosclerotic calcification of the aortic arch with tortuosity. Normal visualized thoracic spine. Normal visualized ribs, clavicles, and shoulders. There is no demonstrated abnormality of the visualized soft tissue structures of the upper abdomen. RAD/Chest 1 View (Portable) IMPRESSION: No acute abnormality is seen. Electronically Signed: Kieran Harris, at 12:37 EDT , Service support ,
--- NOTE | 2019-12-24 11:38 | ED.RN ---
ATTEMPTED TO CONTACT POA. NO ANSWER
--- NOTE | 2019-12-24 11:42 | ED.DCSUM_ITS ---
History of Present Illness Chief Complaint: Fall Informant: Patient Narrative: Patient is a 79-year-old male with a past medical history of dementia who presents to the emergency department from outside facility for a femoral neck fracture. He was sent in for surgical management. He states that he fell about a day and a half ago. He states that he was just walking between rooms whenever he tripped. He denies hitting his head or losing consciousness. He is not on anticoagulation. He is currently denying having any pain. Denies any loss of sensation in his legs. States that he has been able to ambulate but with a significant amount of help. He states he cannot put very much weight on his right leg. He denies any other pain or injury from the fall. Currently denying any chest pain, shortness of breath or palpitations. No abdominal pain or nausea/vomiting. No recent illnesses including any fever/chills. Past Medical History - Allergies and Home Meds Allergies/Adverse Reactions: Allergies No Known Allergies Allergy (Verified 06/25/19 14:10) Primary Care Physician: Ricardo Martínez Chi, MD [Primary Care Provider] - Prior records reviewed: Yes Past Medical History: - - CAD, A. fib, hypertension, hyperlipidemia Surgical History: appendectomy, herniorrhaphy, TURP, - - esophagus, right ankle, MAZE procedure. Smoking Status: Former smoker Drugs: None - Family History Maternal Family History: Family History (Last Reviewed 09/16/18 @ 11:[address] Marcos Kay MD) Mother CAD (coronary artery disease) Brother CAD (coronary artery disease) Sister Hypertension Family History: Reports: Heart Disease - age 80 Paternal Family History: Family History (Last Reviewed 09/16/18 @ 11:[address] Marcos Kay MD) Mother CAD (coronary artery disease) Brother CAD (coronary artery disease) Sister Hypertension Family History: Reports: Heart Disease - age 82 Review of Systems All systems negative except as indicated General: Denies: Chills, Fever, Sweats Eyes: Denies: Visual changes - bilaterally, Diplopia ENT: Denies: Rhinorrhea, Sore throat Cardiovascular: Denies: Chest pain, Palpitations Respiratory: Denies: Dyspnea, Cough, Dyspnea on exertion Gastrointestinal: Denies: Abdominal pain, Nausea, Vomiting, Diarrhea Genitourinary: Denies: Dysuria, Hematuria, Frequency Musculoskeletal: Reports: Extremity Pain. Denies: Neck pain, Back pain Skin: Denies: Rash, Wounds Neurological: Denies: Headache, Weakness, Numbness Physical Exam Vital Signs/Narrative: Vital Signs Temp Pulse Resp BP Pulse Ox 12/24/19 11:23 97.7 F L 67 20 H 101/65 98 Inital Vital Signs reviewed: Yes General: Well nourished, Well developed, No Acute Distress Head: Normocephalic, Atraumatic Eyes: Perrl, EOMI ENT: Moist mucous membranes, No rhinorrhea Neck: Supple, Nontender Cardiovascular: Regular rate, Regular rhythm, No murmurs Respiratory: No distress, CTA bilaterally, Chest nontender Abdomen: Soft, Nontender, Nondistended, Normal bowel sounds Back: Nontender, Normal Inspection Extremities: No edema, - - Right lower extremity is shortened and externally rotated. He does have a 2+ DP pulse. Sensation intact. Mild peripheral edema bilaterally. Decreased range of motion of the right leg due to pain. Skin: Normal color, No rash Neurological: Alert, Cranial nerves II-XII grossly intact, Normal Strength, Normal Sensation Psychological: Normal affect, Normal Mood Diagnostic/Tx/Re-eval Chest X-Ray - ED: - - Chest x-ray do not show any acute cardiopulmonary abnormality. - EKG Initial EKG Interpretation: - - Rate of 67 bpm and normal sinus rhythm. Normal intervals. Normal axis. No ST elevations or depressions. No T wave abnormalities. No prior EKG for comparison. - Medical Decision Making Patient presents to emerge department for abnormal outpatient x-ray of his hip. He did have a femoral neck fracture of the right side. We will get basic lab work for preoperative work-up. We will plan on bringing him into the hospital for surgical evaluation by orthopedic surgery. Currently patient denying having any pain. He has been stable throughout ED stay. Will bring into the hospital for further evaluation and management. We did attempt to contact the patient's POA who is a stepdaughter but we could not reach her at this time. ED Disposition - Plan for ED Patient: Disposition: Acute Care Hospital [facility] Diagnosis: Displaced fracture of right femoral neck Referrals: Ricardo Martínez Chi, MD [Primary Care Provider] -
[2019-12-24 12:41] LABS: Anion Gap 4 (5-15); BUN 20 mg/dL (7-18); BUN/Creat Ratio 15.9 RATIO (10-20); Calcium,Total 8.7 mg/dL (8.5-10.1); Chloride 108 mmol/L (98-107); Creatinine, Serum 1.26 mg/dL (0.70-1.30); EST Glomerular Filtration Rate 59 mL/min (>60); Est Glom Filt Rate - Afr Amer 71 mL/min (>60); Estimated Creatinine Clearance 49.09 ml/min; Glucose 112 mg/dL (74-106); Potassium 4.3 mmol/L (3.5-5.1); Sodium Level 141 mmol/L (136-145)
[2019-12-24 12:41] LABS: Mucous, Urine 0 SEEN /hpf (<or=2+); Red Blood Cells-Urine 0 SEEN /hpf (0-5); White Blood Cells 0 SEEN /hpf (0-5)
[2019-12-24 12:56] LABS: Color, Urine Yellow (Yellow); Glucose, Dipstick Normal (Normal); Ketone-Dipstick Negative (Negative); Leukocyte Esterase-Dipstick Negative /ul (Negative); Nitrite-Dipstick Negative (Negative); Occult Blood-Urine Negative /ul (Negative); Protein-Dipstick 15 mg/dl (Negative); Urine Bilirubin Dipstick Negative (Negative); Urine Clarity Sl. Cloudy (Clear); Urine Urobilinogen 4 mg/dl (Normal)
[2019-12-24 12:57] LABS: Absolute Lymphocyte Count 0.84 X10^3/uL (0.83-4.51); Absolute Neutrophil Count 4.6 X10^3/uL (2.0-7.7); Basophil# 0.03 X10^3/uL; Basophil% 0.5 % (0-1); Eosinophil# 0.17 X10^3/uL; Eosinophils% 2.6 % (0-5); Hematocrit 38.8 % (40-54); Hemoglobin 12.1 g/dL (13.0-16.5); Lymphocyte # 0.84 X10^3/ul (4.0); Lymphocyte % 12.7 % (19-41); Mean Corp Hgb Conc 31.2 g/dL (32-36); Mean Corpuscular Hgb 29.3 pg (27.0-32.0); Mean Corpuscular Volume 93.9 fL (80-94); Mean Platelet Vol. 10.6 fl (6.2-12.0); Monocyte# 0.97 X10^3/uL; Monocyte% 14.6 % (0-10); NRBC Flagged by Analyzer 0 % (0-5); Neutrophil # 4.61 X10^3/uL (2.7-7.7); Neutrophil % 69.3 % (47-70); Platelet Count 206 K/mm3 (150-450); RBC Distribution Width CV 14.4 % (11.6-14.6); RBC Distribution Width SD 50.2 fl (35.1-43.9); Red Blood Count 4.13 M/mm3 (4.6-6.2); White Blood Count 6.6 K/mm3 (4.4-11.0)
[2019-12-24 13:01] LABS: Bacteria 1+ /hpf (None Seen); Squamous Epithelial Cells - UA 0-5 SEEN /hpf (0-5)
[2019-12-24 13:28] VITALS: BP 123/80; PULSE 62; RESP 16; TEMP 37.1; O2SAT 98
[2019-12-24 13:43] VITALS: BMI 24.6
--- NOTE | 2019-12-24 13:44 | HP.PCM_ITS ---
Problem List (1) Displaced fracture of right femoral neck Status: Acute (2) S/P PTCA (percutaneous transluminal coronary angioplasty) Status: Resolved Comment: cutting balloon procedure of ostium of PV-RCA (3) Essential (primary) hypertension Status: Chronic (4) Atherosclerotic heart disease of [place] coronary artery without angina pectoris Status: Chronic Qualifiers: [place] vs. transplanted heart: [place] heart Qualified Code(s): I25.10 - Atherosclerotic heart disease of [place] coronary artery without angina pectoris Comment: S/P cutting balloon to RCA in 2001; (5) Paroxysmal atrial fibrillation Status: Chronic Comment: S/P maze procedure in June 2002; (6) Nonrheumatic tricuspid (valve) insufficiency Status: Chronic (7) History of maze procedure Status: Chronic Comment: For Atrial fibrillation (8) Hyperlipidemia Status: Chronic Qualifiers: Hyperlipidemia type: unspecified Qualified Code(s): E78.5 - Hyperlipidemia, unspecified History of Present Illness Date of Admission: 12/24/19 Chief Complaint: right hip pain The patient is a 79 year old M presents from the orthopedic clinic with a right hip fracture. Patient fell couple days ago and landing on his hip. Patient has had pain since then. Patient states that he struck his face as well but the did not lose consciousness. Went to the orthopedic clinic today had an x-ray that showed right hip fracture. Sent to the emergency room. The emergency room spoke with the on-call orthopedic surgeon, Dr. Ramirez, who will see the patient in consultation. Patient does state that he has a history of falls. Patient is unsure if he tripped over anything the other day or not. [] Past Medical History Past Medical History (Chronic Problems): Chronic Problems (Last Reviewed 12/24/19 @ 13:[address] Garret Friend DO) Essential (primary) hypertension (Chronic) Atherosclerotic heart disease of [place] coronary artery without angina pectoris (Chronic) S/P cutting balloon to RCA in 2001; Paroxysmal atrial fibrillation (Chronic 06/23/02) S/P maze procedure in June 2002; Nonrheumatic tricuspid (valve) insufficiency (Chronic) History of maze procedure (Chronic 06/2002) For Atrial fibrillation Hyperlipidemia (Chronic) Medical History: Medical History (Last Reviewed 12/24/19 @ 13:[address] Garret Freind DO) Essential (primary) hypertension (Chronic) I10 Atherosclerotic heart disease of [place] coronary artery without angina pectoris (Chronic) I25.10 S/P cutting balloon to RCA in 2001; Paroxysmal atrial fibrillation (Chronic) Onset Date: 06/23/02 I48.0 S/P maze procedure in June 2002; Nonrheumatic tricuspid (valve) insufficiency (Chronic) I36.1 Hyperlipidemia (Chronic) E78.5 BPH (benign prostatic hyperplasia) N40.0 Back pain M54.9 Dementia F03.90 Difficulty balancing R29.818 HTN (hypertension) I10 Parkinson disease G20 Accident due to mechanical fall without injury (Resolved) W19.XXXA Febrile illness (Resolved) R50.9 Fracture of one rib, left side, initial encounter for closed fracture (Resolved) S22.32XA Shoulder pain M25.519 Syncope and collapse R55 UTI (urinary tract infection) (Resolved) N39.0 Ankle pain (Inactive) M25.579 Atrial tachycardia (Inactive) I47.1 Contusion of left chest wall (Inactive) S20.212A Nonrheumatic aortic (valve) stenosis (Inactive) I35.0 Nonrheumatic aortic valve insufficiency (Inactive) I35.1 Nonrheumatic mitral valve regurgitation (Inactive) I34.0 Palpitations (Inactive) R00.2 Allergies No Known Allergies Allergy (Verified 06/25/19 14:10) Home Medications: Ambulatory Orders Medication Instructions Recorded Pravastatin [Pravachol] 80 mg PO QHS 10/07/17 traMADol [Ultram] 2 tab PO BID PRN 10/07/17 memantine 10 mg tablet 10 mg PO BID tab 10/31/17 Menthol [Biofreeze] 1 applic TP BID 08/25/18 Multivitamin [Daily Multiple 1 tab PO DAILY 08/25/18 Vitamin] Omeprazole 40 mg PO DAILY 08/25/18 Polyethylene Glycol 3350 [Purelax] 17 gm PO DAILY 08/25/18 Sennosides [Senna] 8.6 mg PO QHS 08/25/18 Metoprolol Tartrate [Lopressor 25 mg PO DAILY tab 08/26/18 (beta jory)] docusate sodium 100 mg capsule 100 mg PO DAILY 06/25/19 oxybutynin chloride 5 mg tablet 5 mg PO QHS 06/25/19 Aspirin E.C. [Ecotrin] 325 mg PO QHS 12/24/19 busPIRone [Buspar] 5 mg PO QHS PRN 12/24/19 Surgical History: Surgical History (Last Reviewed 12/24/19 @ 13:[address] Garret Friend DO) S/P PTCA (percutaneous transluminal coronary angioplasty) (Resolved) Onset Date: 05/06/02 Z98.61 cutting balloon procedure of ostium of PV-RCA History of maze procedure (Chronic) Onset Date: 06/2002 Z98.890 For Atrial fibrillation History of left heart catheterization Onset Date: 04/2009 Z98.890 Surgical History: appendectomy, herniorrhaphy, TURP, - - esophagus, right ankle, MAZE procedure. Psychiatric History: No pertinent psych hx Smoking Status: Unknown if ever smoked Drugs: None - *Family History Maternal Family History: Family History (Last Reviewed 12/24/19 @ 13:[address] Garret Friend DO) Mother CAD (coronary artery disease) Brother CAD (coronary artery disease) Sister Hypertension History Items: Heart Disease - age 80 Paternal Family History: Family History (Last Reviewed 12/24/19 @ 13:[address] Garret Friend DO) Mother CAD (coronary artery disease) Brother CAD (coronary artery disease) Sister Hypertension History Items: Heart Disease - age 82 Review of Systems Constitutional: Denies: Chills, Fever, Weight Change Eyes: Denies: Blurred vision, Double vision HEENT: Denies: Difficulty Hearing, Ear Pain Cardiovascular: Denies: Chest Pain, Palpitations Respiratory: Denies: Cough, Shortness of breath at rest, Sputum production Gastrointestinal: Denies: Abdominal Pain, Nausea, Vomiting Genitourinary: Denies: Dysuria Musculoskeletal: Reports: - - right hip pain. Denies: Joint Pain, Joint Tenderness Skin: Denies: Dryness, Jaundice Comment: All review of systems were negative except as mentioned above in the history of present illness and the other review of systems. VTE Information - Inpt Only VTE Present on Admission: No VTE Mechan Device Prophylaxis: SCD's VTE Pharm Prophylaxis ordered?: No Reason prophylaxis not ordered:: Treatment Not Indicated Patient Problems: Active and Suspected Problems (Last Reviewed 12/24/19 @ 13:[address] Garret Friend DO) Displaced fracture of right femoral neck (Acute) - Physical Exam Vitals/I&O's: Vital Signs Temp Pulse Resp BP Pulse Ox 37.1 C 62 16 123/80 H 98 12/24/19 13:28 12/24/19 13:28 12/24/19 13:28 12/24/19 13:28 12/24/19 13:28 Oxygen Delivery Method Room Air Weight: 81.9 kg Body Mass Index (BMI) 25.9 Finger Stick Blood Glucose 53 General: Alert, Cooperative, No apparent distress HEENT: Atraumatic, Normocephalic, - - No icterus Neck: No Nodes, Thyroid Normal Size and Texture Lungs: Clear to auscultation, Normal air movement, No rhonchi, No wheeze, No rales Cardiovascular: Regular rate, Regular Rhythm, Normal S1, Normal S2, No murmurs Abdomen: Bowel Sounds Present, Soft, Non Tender, Non-Distended, No Hepato- splenomegaly Extremities: No edema, No Calf Tenderness Skin: No rashes, No breakdown Musculoskeletal: No Muscle Wasting, - - Shortened right lower extremity. Neurological: - - Resting tremor Psych/Mental Status: Normal Affect, Appropriate Laboratory Results 12/24/19 11:44: WBC 6.6, RBC 4.13 L, Hgb 12.1 L, Hct 38.8 L, MCV 93.9, MCH 29.3, MCHC 31.2 L, RDW Std Deviation 50.2 H, RDW Coeff of [place]evin 14.4, Plt Count 206, MPV 10.6, Immature Gran % (Auto) 0.300, Neut % (Auto) 69.3, Lymph % (Auto) 12.7 L, [place] % (Auto) 14.6 H, Eos % (Auto) 2.6, Baso % (Auto) 0.5, Absolute Neuts (auto) 4.6, Absolute Lymphs (auto) 0.84, Nucleated RBC % 0 12/24/19 11:44: Sodium 141, Potassium 4.3, Chloride 108 H, Carbon Dioxide 29.0, Anion Gap 4 L, BUN 20 H, Creatinine 1.26, Estim Creat Clear Calc 49.09, Est GFR (MDRD) Af Amer 71, Est GFR (MDRD) Non-Af 59 L, BUN/Creatinine Ratio 15.9, Glucose 112 H, Calcium 8.7, Troponin I < 0.015 12/24/19 12:30: Urine Color Yellow, Urine Clarity Sl. Cloudy, Urine pH 6.0, Ur Specific [place] 1.010, Urine Protein 15 H, Urine Glucose (UA) Normal, Urine Ketones Negative, Urine Occult Blood Negative, Urine Nitrite Negative, Urine Bilirubin Negative, Urine Urobilinogen 4 H, Ur Leukocyte Esterase Negative, Urine RBC 0 SEEN, Urine WBC 0 SEEN, Ur Squamous Epith Cells 0-5 SEEN, Urine Bacteria 1+, Urine Mucus 0 SEEN Assessment/Plan All Active Problems (Last Reviewed 12/24/19 @ 13:[address] Garret Friend, DO) Displaced fracture of right femoral neck (Acute) S/P PTCA (percutaneous transluminal coronary angioplasty) (Resolved 05/06/02) Accident due to mechanical fall without injury (Resolved) Encephalopathy acute (Resolved) Febrile illness (Resolved) Fracture of one rib, left side, initial encounter for closed fracture (Resolved) Hypoglycemia (Resolved) UTI (urinary tract infection) (Resolved) 1. Right hip fracture: X-ray shows impacted right femoral neck fracture. Orthopedics has been contacted and tentative plan is for surgery on the . Patient medically optimized and cleared to proceed with surgery. Check a 25- hydroxy vitamin D level. 2. Atrial fibrillation, paroxysmal: Currently normal sinus rhythm. Patient anticoagulation but on aspirin. Would hold aspirin for now in light of the oncoming surgery. 3. Other chronic conditions: Parkinson's, chronic kidney disease stage III, dementia. Stable this time and overall complicates care. 4. VTE prophylaxis: High risk but will place patient on SCDs for now. Initiate chemical prophylaxis after surgery. Inpatient E&M: 66635 Init Hosp L2
[2019-12-24 14:06] VITALS: BMI 24.6
--- NOTE | 2019-12-24 14:26 | NURSING ---
spoke with sharri sharif for medical hx
--- NOTE | 2019-12-24 14:45 | CASEMGMT ---
Addendum entered by Tejal Cotto 12/24/19 15:17: TIFFANIE spoke with Barby at [facility] and she faxed patient's Healthcare POA papers and Ena Carney is his Healthcare Power of Windows Systems Engineer. SW placed these in patient's chart. Green sheet is on chart in the event patient is ready for discharge over the weekend. Tejal GONSALEZ Original Note: Patient is from [facility] [place]. TIFFANIE spoke with Barby at [facility] and she said Ena Rommel is patient's POA. They go through her for everything. Barby said patient can return whenever he is ready. TIFFANIE called Ena and she said she is patient's POA and [facility] has the paperwork. TIFFANIE asked her about Bimal Esposito as he is listed on patient's demographics sheet at [facility]. She said that is his son, but she is the POA. SW will change the demographics sheet. She said patient has Dementia and should not sign any papers. She confirmed the plan is to return to [facility] when he is ready. TIFFANIE will check to see if [facility] sent POA and LW information and if not TIFFANIE will obtain this from [facility]. Plan: d/c back to [facility] when ready. Tejal GONSALEZ
[2019-12-24 20:50] VITALS: BP 117/58; PULSE 74; RESP 18; TEMP 37.2; O2SAT 100
[2019-12-24] MEDS: Memantine Hydrochloride 10 MG Tablet PO (21:32)
[2019-12-24] MEDS: Pravastatin 80 MG Tablet PO (21:33)
[2019-12-24] MEDS: Oxybutynin 5 MG Tablet PO (21:33)
[2019-12-25 02:45] VITALS: BP 150/95; PULSE 78; RESP 18; TEMP 37.5; O2SAT 96
--- NOTE | 2019-12-25 07:15 | PCM.CONS.GEN ---
Reason for Consult Date of Consultation: 12/25/19 Reason for Consultation: Right hip pain History of Present Illness: The patient is a 79 year old M [with severe dementia, thus rendering history unobtainable. Apparently he fell suffering a right hip fx. He was admitted by the hospitalist. PMHx, PSHx, Allergies, Medications, Family Hx and ROS reviewed per the intake H&P.] Past Medical History Past Medical History (Chronic Problems): Chronic Problems (Last Reviewed 12/24/19 @ 13:[address] Garret Friend DO) Essential (primary) hypertension (Chronic) Atherosclerotic heart disease of [place] coronary artery without angina pectoris (Chronic) S/P cutting balloon to RCA in 2001; Paroxysmal atrial fibrillation (Chronic 06/23/02) S/P maze procedure in June 2002; Nonrheumatic tricuspid (valve) insufficiency (Chronic) History of maze procedure (Chronic 06/2002) For Atrial fibrillation Hyperlipidemia (Chronic) Medical History: Medical History (Last Reviewed 12/24/19 @ 13:[address] Garret Friend DO) Essential (primary) hypertension (Chronic) I10 Atherosclerotic heart disease of [place] coronary artery without angina pectoris (Chronic) I25.10 S/P cutting balloon to RCA in 2001; Paroxysmal atrial fibrillation (Chronic) Onset Date: 06/23/02 I48.0 S/P maze procedure in June 2002; Nonrheumatic tricuspid (valve) insufficiency (Chronic) I36.1 Hyperlipidemia (Chronic) E78.5 BPH (benign prostatic hyperplasia) N40.0 Back pain M54.9 Dementia F03.90 Difficulty balancing R29.818 HTN (hypertension) I10 Parkinson disease G20 Accident due to mechanical fall without injury (Resolved) W19.XXXA Febrile illness (Resolved) R50.9 Fracture of one rib, left side, initial encounter for closed fracture (Resolved) S22.32XA Shoulder pain M25.519 Syncope and collapse R55 UTI (urinary tract infection) (Resolved) N39.0 Ankle pain (Inactive) M25.579 Atrial tachycardia (Inactive) I47.1 Contusion of left chest wall (Inactive) S20.212A Nonrheumatic aortic (valve) stenosis (Inactive) I35.0 Nonrheumatic aortic valve insufficiency (Inactive) I35.1 Nonrheumatic mitral valve regurgitation (Inactive) I34.0 Palpitations (Inactive) R00.2 Allergies No Known Allergies Allergy (Verified 06/25/19 14:10) Home Medications: Ambulatory Orders Medication Instructions Recorded Pravastatin [Pravachol] 80 mg PO QHS 10/07/17 memantine 10 mg tablet 10 mg PO DAILY tab 10/31/17 Menthol [Biofreeze] 1 applic TP BID PRN 08/25/18 Multivitamin [Daily Multiple 1 tab PO DAILY 08/25/18 Vitamin] Omeprazole 40 mg PO DAILY 08/25/18 Polyethylene Glycol 3350 [Purelax] 17 gm PO DAILY 08/25/18 Sennosides [Senna] 8.6 mg PO QHS 08/25/18 docusate sodium 100 mg capsule 100 mg PO DAILY PRN 06/25/19 oxybutynin chloride 5 mg tablet 5 mg PO QHS 06/25/19 Aspirin E.C. [Ecotrin] 325 mg PO QHS 12/24/19 Calcium Carbonate [Tums] 200 mg PO Q2H PRN PRN 12/24/19 Calmicid 1 tab PO TID 12/24/19 Hydrocodone Bitart/Apap 5-325 1 tab PO Q8H PRN PRN 12/24/19 [[place] 5MG-325MG] Memantine Hydrochloride [Namenda] 10 mg PO QHS 12/24/19 Metoprolol(XL)Succ [Toprol Xl 25 mg PO DAILY 12/24/19 (Beta Norbert)] Oxybutynin Chloride 5 mg PO DAILY 12/24/19 Oxymetazoline 0.05% [Afrin (BKC)] 15 spray NASAL DAILY PRN 12/24/19 busPIRone [Buspar] 5 mg PO DAILY 12/24/19 busPIRone [Buspar] 5 mg PO QHS PRN 12/24/19 Surgical History: Surgical History (Last Reviewed 12/24/19 @ 13:[address] Garret Friend DO) S/P PTCA (percutaneous transluminal coronary angioplasty) (Resolved) Onset Date: 05/06/02 Z98.61 cutting balloon procedure of ostium of PV-RCA History of maze procedure (Chronic) Onset Date: 06/2002 Z98.890 For Atrial fibrillation History of left heart catheterization Onset Date: 04/2009 Z98.890 Surgical History: appendectomy, herniorrhaphy, TURP, - - esophagus, right ankle, MAZE procedure. Psychiatric History: No pertinent psych hx Smoking Status: Former smoker Drugs: None - *Family History Maternal Family History: Family History (Last Reviewed 12/24/19 @ 13:[address] Garret Friend DO) Mother CAD (coronary artery disease) Brother CAD (coronary artery disease) Sister Hypertension History Items: Heart Disease - age 80 Paternal Family History: Family History (Last Reviewed 12/24/19 @ 13:[address] Garret Friend DO) Mother CAD (coronary artery disease) Brother CAD (coronary artery disease) Sister Hypertension History Items: Heart Disease - age 82 Patient Problems: Active and Suspected Problems (Last Reviewed 12/24/19 @ 13:[address] Garret Friend DO) Displaced fracture of right femoral neck (Acute) - Physical Exam Vitals/I&O's: Vital Signs Temp Pulse Resp BP Pulse Ox 99.5 F H 78 18 150/95 H 96 12/25/19 02:45 12/25/19 02:45 12/25/19 02:45 12/25/19 02:45 12/25/19 02:45 Oxygen Delivery Method Room Air Weight: 171 lb 8.937 oz Body Mass Index (BMI) 24.6 Finger Stick Blood Glucose 53 Intake and Output for Last 24 Hours 12/23/19 12/24/19 12/25/19 23:59 23:59 23:59 Intake Total 350 / 350 100 / 100 Output Total 1200 / 1200 400 / 400 Balance -850 / -850 -300 / -300 General: No apparent distress Skin: No rashes Musculoskeletal: Tenderness - RLE. RLE is shortened and externally rotated Neurological: Neuro grossly intact Laboratory Results 12/24/19 11:44: WBC 6.6, RBC 4.13 L, Hgb 12.1 L, Hct 38.8 L, MCV 93.9, MCH 29.3, MCHC 31.2 L, RDW Std Deviation 50.2 H, RDW Coeff of [place] 14.4, Plt Count 206, MPV 10.6, Immature Gran % (Auto) 0.300, Neut % (Auto) 69.3, Lymph % (Auto) 12.7 L, [place] % (Auto) 14.6 H, Eos % (Auto) 2.6, Baso % (Auto) 0.5, Absolute Neuts (auto) 4.6, Absolute Lymphs (auto) 0.84, Nucleated RBC % 0 12/24/19 11:44: Sodium 141, Potassium 4.3, Chloride 108 H, Carbon Dioxide 29.0, Anion Gap 4 L, BUN 20 H, Creatinine 1.26, Estim Creat Clear Calc 49.09, Est GFR (MDRD) Af Amer 71, Est GFR (MDRD) Non-Af 59 L, BUN/Creatinine Ratio 15.9, Glucose 112 H, Calcium 8.7, Troponin I < 0.015 12/24/19 12:30: Urine Color Yellow, Urine Clarity Sl. Cloudy, Urine pH 6.0, Ur Specific [place] 1.010, Urine Protein 15 H, Urine Glucose (UA) Normal, Urine Ketones Negative, Urine Occult Blood Negative, Urine Nitrite Negative, Urine Bilirubin Negative, Urine Urobilinogen 4 H, Ur Leukocyte Esterase Negative, Urine RBC 0 SEEN, Urine WBC 0 SEEN, Ur Squamous Epith Cells 0-5 SEEN, Urine Bacteria 1+, Urine Mucus 0 SEEN 12/24/19 15:05: COVID-19 ([place]) Not Detected Current Medications Acetaminophen (Tylenol) 650 mg PO Q6H PRN PRN PRN Reason: Pain Score 1-10/Temp > 100.7 F Buspirone HCl (Buspar) 5 mg PO QHS PRN PRN Reason: ANXIETY Dextrose (D50w Syringe) 0 gm IV X1 PRN; Protocol PRN Reason: Hypoglycemia Docusate Sodium (Colace) 100 mg PO DAILY [place] Glucagon () 1 mg IM .X1 PRN PRN Reason: Hypoglycemia Sodium Chloride () 250 mls @ 15 mls/hr IV .[id number] PRN PRN Reason: Saline Flush Sodium Chloride () 250 mls @ 15 mls/hr IV .[id number] PRN PRN Reason: Additional IVPB Infusion Sodium Chloride () 1,000 mls @ 75 mls/hr IV .[id number] [facility] Memantine (Namenda) 10 mg PO BID [facility] Last Admin: 12/24/19 21:32 Dose: 10 mg Documented by: Metoprolol Tartrate (Lopressor (Beta Norbert)) 25 mg PO DAILY [facility] Multivitamins (Multivitamin) 1 tablet PO DAILY@0800 [facility] Ondansetron HCl (Zofran) 4 mg IV Q8H PRN PRN PRN Reason: NAUSEA/VOMITING Oxybutynin Chloride (Ditropan) 5 mg PO QHS [facility] Last Admin: 12/24/19 21:33 Dose: 5 mg Documented by: Oxycodone HCl (Oxyir) 5 mg PO Q4H PRN PRN PRN Reason: Pain Score 6-10/10 Pantoprazole Sodium (Protonix) 40 mg PO DAILY [facility] Polyethylene Glycol (Miralax) 17 gm PO DAILY [facility] Pravastatin Sodium (Pravachol) 80 mg PO QHS [facility] Last Admin: 12/24/19 21:33 Dose: 80 mg Documented by: Senna (Senokot) 1 tablet PO QHS [facility] Last Admin: 12/24/19 21:31 Dose: Not Given Documented by: Sodium Chloride () 10 - 40 ml IV UD PRN PRN Reason: SALINE FLUSH Assessment/Plan All Active Problems (Last Reviewed 12/24/19 @ 13:[address] Garret Friend, DO) Displaced fracture of right femoral neck (Acute) S/P PTCA (percutaneous transluminal coronary angioplasty) (Resolved 05/06/02) Accident due to mechanical fall without injury (Resolved) Encephalopathy acute (Resolved) Febrile illness (Resolved) Fracture of one rib, left side, initial encounter for closed fracture (Resolved) Hypoglycemia (Resolved) UTI (urinary tract infection) (Resolved) Right subcapital hip fx -- To OR for hemiarthroplasty. Potential risks, benefits, complications and non-surgical alternatives reviewed with his daughter who is his POR.
[2019-12-25 08:10] VITALS: BP 130/63; PULSE 72; RESP 16; TEMP 36.6; O2SAT 96
[2019-12-25] MEDS: Pantoprazole Sodium 40 MG Tablet PO (09:43)
[2019-12-25] MEDS: Multivitamins,Therapeutic Tablet 1 TABLET PO (09:43)
[2019-12-25] MEDS: Memantine Hydrochloride 10 MG Tablet PO ×2 (09:43→21:53)
[2019-12-25 09:44] VITALS: PULSE 72
[2019-12-25] MEDS: Metoprolol Tartrate 25 MG Tablet PO (09:44)
[2019-12-25 11:42] VITALS: BP 136/76; PULSE 76; RESP 16; TEMP 36.7; O2SAT 95
[2019-12-25 14:49] VITALS: BP 140/69; PULSE 66; RESP 16; TEMP 36.4; O2SAT 97
--- NOTE | 2019-12-25 15:00 | PCM.PN.HOSP ---
Patient Problems: Active and Suspected Problems (Last Reviewed 12/24/19 @ 13:[address] Garret Friend, DO) Displaced fracture of right femoral neck (Acute) Subjective: No issues overnight, plan is for OR tomorrow. Denies any significant pain however oxycodone is available if necessary Vitals/I&O's: Vital Signs Temp Pulse Resp BP Pulse Ox 97.6 F L 66 16 140/69 H 97 12/25/19 14:49 12/25/19 14:49 12/25/19 14:49 12/25/19 14:49 12/25/19 14:49 Oxygen Delivery Method Room Air Weight: 171 lb 8.937 oz Body Mass Index (BMI) 24.6 Finger Stick Blood Glucose 53 Intake and Output for Last 24 Hours 12/23/19 12/24/19 12/25/19 23:59 23:59 23:59 Intake Total 350 / 350 300 / 300 Output Total 1200 / 1200 650 / 650 Balance -850 / -850 -350 / -350 General: Alert, Oriented x3, Cooperative, No apparent distress HEENT: Atraumatic, PERRLA, EOMI, Normocephalic Oral: Moist Mucosa Neck: Supple, No JVD Lungs: Clear to auscultation, Normal air movement, No rhonchi, No wheeze, No rales, Diminished Cardiovascular: Regular rate, Regular Rhythm, Normal S1, Normal S2, No murmurs Abdomen: Soft, Non Tender, Non-Distended, No Hepato-splenomegaly Extremities: No edema, Capillary Refill Less than 3 Seconds Skin: No rashes, No breakdown Neurological: Neuro grossly intact, Sensory exam intact to light touch and pain, - - Resting tremor Psych/Mental Status: Normal Affect, Appropriate Laboratory Results 12/24/19 15:05: COVID-19 ([place]) Not Detected Current Medications Acetaminophen (Tylenol) 650 mg PO Q6H PRN PRN PRN Reason: Pain Score 1-10/Temp > 100.7 F Buspirone HCl (Buspar) 5 mg PO QHS PRN PRN Reason: ANXIETY Dextrose (D50w Syringe) 0 gm IV X1 PRN; Protocol PRN Reason: Hypoglycemia Docusate Sodium (Colace) 100 mg PO DAILY [place] Last Admin: 12/25/19 09:43 Dose: Not Given Documented by: Glucagon () 1 mg IM .X1 PRN PRN Reason: Hypoglycemia Sodium Chloride () 250 mls @ 15 mls/hr IV .[id number] PRN PRN Reason: Saline Flush Sodium Chloride () 250 mls @ 15 mls/hr IV .[id number] PRN PRN Reason: Additional IVPB Infusion Sodium Chloride () 1,000 mls @ 75 mls/hr IV .[id number] [facility] Cefazolin Sodium 2 gm/ Sodium (Chloride) 110 mls @ 150 mls/hr IV X1 ONE Stop: 12/26/19 07:43 Memantine (Namenda) 10 mg PO BID [facility] Last Admin: 12/25/19 09:43 Dose: 10 mg Documented by: Metoprolol Tartrate (Lopressor (Beta Norbert)) 25 mg PO DAILY [facility] Last Admin: 12/25/19 09:44 Dose: 25 mg Documented by: Multivitamins (Multivitamin) 1 tablet PO DAILY@0800 [facility] Last Admin: 12/25/19 09:43 Dose: 1 tablet Documented by: Ondansetron HCl (Zofran) 4 mg IV Q8H PRN PRN PRN Reason: NAUSEA/VOMITING Oxybutynin Chloride (Ditropan) 5 mg PO QHS [facility] Last Admin: 12/24/19 21:33 Dose: 5 mg Documented by: Oxycodone HCl (Oxyir) 5 mg PO Q4H PRN PRN PRN Reason: Pain Score 6-10/10 Pantoprazole Sodium (Protonix) 40 mg PO DAILY [facility] Last Admin: 12/25/19 09:43 Dose: 40 mg Documented by: Polyethylene Glycol (Miralax) 17 gm PO DAILY [facility] Last Admin: 12/25/19 09:44 Dose: Not Given Documented by: Pravastatin Sodium (Pravachol) 80 mg PO QHS [facility] Last Admin: 12/24/19 21:33 Dose: 80 mg Documented by: Senna (Senokot) 1 tablet PO QHS [facility] Last Admin: 12/24/19 21:31 Dose: Not Given Documented by: Sodium Chloride () 10 - 40 ml IV UD PRN PRN Reason: SALINE FLUSH STROKE Vital Signs/Narrative: Vital Signs Temp Pulse Resp BP Pulse Ox 12/25/19 14:49 97.6 F L 66 16 140/69 H 97 12/25/19 11:42 98.1 F 76 16 136/76 H 95 Medical Necessity - Tobacco Use Smoking Status: Former smoker Assessment/Plan All Active Problems (Last Reviewed 12/24/19 @ 13:[address] Garret Friend, DO) Displaced fracture of right femoral neck (Acute) History of coronary angioplasty (Resolved 05/06/02) Accident due to mechanical fall without injury (Resolved) Encephalopathy acute (Resolved) Febrile illness (Resolved) Fracture of one rib, left side, initial encounter for closed fracture (Resolved) Hypoglycemia (Resolved) UTI (urinary tract infection) (Resolved) 1. Right hip fracture -Has an impacted right femoral neck fracture, orthopedics was consulted plan for surgery tomorrow -He is currently low risk for surgery -Vitamin D level is pending 2. Paroxysmal A. fib/HTN/HLD -Blood pressure is stable -Continue with metoprolol as well as aspirin if okay with Ortho -Continue with pravastatin 3. Parkinson's dementia/depression -He does have severe dementia, continue with his Namenda -Continue with BuSpar 4. GERD -Stable -Continue with PPI 5. CKD 3 -Creatinine and GFR stable -We will monitor DVT: SCDs Inpatient E&M: 00438 Subs Hosp L2
[2019-12-25 20:31] VITALS: BP 136/76; PULSE 71; RESP 18; TEMP 37.3; O2SAT 99
[2019-12-25] MEDS: Pravastatin 80 MG Tablet PO (21:53)
[2019-12-25] MEDS: Senna Tablet 1 TABLET PO (21:53)
[2019-12-25] MEDS: Oxybutynin 5 MG Tablet PO (21:53)
[2019-12-26] VITALS (14 sets, daily range): BP systolic 105–157; BP diastolic 63–97; PULSE 68–82; RESP 16–20; TEMP 36.1–37.1; O2SAT 95–100; BMI 24.6
[2019-12-26] MEDS: 0.9% Saline Lock 10 ML Syringe IV (00:14)
[2019-12-26] MEDS: 0.9% Normal Saline 1,000 ML 75 ML IV ×3 (00:16→23:14)
[2019-12-26 05:27] LABS: Absolute Lymphocyte Count 0.94 X10^3/uL (0.83-4.51); Absolute Neutrophil Count 4.3 X10^3/uL (2.0-7.7); Basophil# 0.02 X10^3/uL; Basophil% 0.3 % (0-1); Eosinophils% 3.2 % (0-5); Hematocrit 35.6 % (40-54); Hemoglobin 11.3 g/dL (13.0-16.5); Lymphocyte # 0.94 X10^3/ul (4.0); Lymphocyte % 14.9 % (19-41); Mean Corp Hgb Conc 31.7 g/dL (32-36); Mean Corpuscular Hgb 29.4 pg (27.0-32.0); Mean Corpuscular Volume 92.7 fL (80-94); Mean Platelet Vol. 9.8 fl (6.2-12.0); Monocyte# 0.82 X10^3/uL; NRBC Flagged by Analyzer 0 % (0-5); Platelet Count 216 K/mm3 (150-450); RBC Distribution Width CV 14.2 % (11.6-14.6); RBC Distribution Width SD 48.1 fl (35.1-43.9); Red Blood Count 3.84 M/mm3 (4.6-6.2); White Blood Count 6.3 K/mm3 (4.4-11.0)
[2019-12-26 05:50] LABS: Anion Gap 7 (5-15); BUN 22 mg/dL (7-18); BUN/Creat Ratio 19.8 RATIO (10-20); Calcium,Total 8.5 mg/dL (8.5-10.1); Chloride 106 mmol/L (98-107); Creatinine, Serum 1.11 mg/dL (0.70-1.30); EST Glomerular Filtration Rate 68 mL/min (>60); Est Glom Filt Rate - Afr Amer 82 mL/min (>60); Estimated Creatinine Clearance 55.72 ml/min; Glucose 109 mg/dL (74-106); Sodium Level 142 mmol/L (136-145)
--- NOTE | 2019-12-26 05:53 | NURSING ---
Ena Carney called in this morning; updated on pt at this time.
--- NOTE | 2019-12-26 07:05 | HIP_PTH ---
PATIENT: CASH DOMINGO LOC: [facility]3 U#:[id number] AGE/SX: 79/M ROOM: [facility]323 RE12/24/[address]: Dr. John Rueda MD : 1940 BED: 1 DIS: 12/27/2019 SPEC #: [id number] RECD: 12/27/19 07:44 STATUS: TERESA RENneka #: [id number] DENISA: 12/26/19 07:[address]: Britton Levy DEPT: SURGICAL PATHOLOGY RECD BY: Eufemia Lang ENTERED: 12/27/19 09:16 SP TYPE: TOTAL HIP OTHR DR: DO Dr. John Ramos MD Tai Chi Kwok, MD Tissues: Hip, NOS Procedures: Decalcification bone/plaque Surgery Specimen Level IV HEADER OPERATION: Right hip hemiarthroplasty PRE-OP DIAGNOSIS: Displaced fracture of right femoral neck TISSUE SUBMITTED: Right femoral head MICROSCOPIC DIAGNOSIS Right femoral head, hemiarthroplasty: Femoral head and detached pieces of bone with focal area of hemorrhage, clinically displaced fracture right femoral neck. ERIKA:kathia 12/30/19 MICROSCOPIC DESCRIPTION Slides are reviewed. GROSS DESCRIPTION Received is one container labeled with the patient's name and designated femoral head and tissue. The specimen consists of a cummings femoral head measuring 5 x 5 x 4 cm. Portion of femoral neck measures 1.5 cm in length. The articular surface is smooth. Resection margin is irregular and hemorrhagic. Also present in the specimen container are multiple detached pieces of bone measuring in aggregate 5 x 5 x 2.5 cm. Garage Attendant sections are submitted in three cassettes as follows: 1 & 2 - femoral head, 3??detached pieces of bone after decalcification. / AM:kathia 12/27/19 TC:5 CPT: 43818, [id number]
[2019-12-26] MEDS: Cefazolin 2 GM in 0.9% Normal Saline 100 ML IV (07:40)
--- NOTE | 2019-12-26 08:32 | RAD_ITS ---
STUDY: X-RAY - PELVIS AND RIGHT HIP REASON FOR EXAM: Male, 79 years old. post op right hip TECHNIQUE: 2 views of the pelvis and hip. COMPARISON: 12/24/2019 FINDINGS: There is a non-specific bowel gas pattern. Normal visualized soft tissue structures. Normal bilateral iliac wings, sacroiliac joints and visualized sacrum. Normal bilateral superior and inferior pubic rami. Normal pubic symphysis. Normal bilateral ischial tuberosities. Interval recent right hip hemiarthroplasty for treatment of femoral neck fracture with skin darcie and subcutaneous emphysema. Normal acetabulum. Normal hip joint. RAD/Hip Min 2 Views (Portable) IMPRESSION: Interval recent right hip hemiarthroplasty. Electronically Signed: Virgil Coffey MD at 10:18 EDT Tel , Service support ,
--- NOTE | 2019-12-26 08:34 | PCM.OPRPT ---
Report of Operation Date of Procedure: 12/26/19 Pre-Operative Diagnosis: Displaced subcapital fracture right hip Post-Operative Diagnosis: same Surgery/Procedure Performed:: Hemiarthroplasty right hip marker machine: Srikanth Dejesus Type of Anesthesia:: General Anesthesiologist: Magdalena Sena Specimen's removed: femoral head Estimated Blood Loss (mL): 50 cc - Admit VTE Documentation VTE Present on Admission: No VTE Mechan Device Prophylaxis: SCD's, Thigh High ARSENIO Hose VTE Pharm Prophylaxis ordered?: Yes
[2019-12-26 10:06] LABS: Hematocrit 36.2 % (40-54); Hemoglobin 11.4 g/dL (13.0-16.5); Mean Corp Hgb Conc 31.5 g/dL (32-36); Mean Corpuscular Hgb 29.5 pg (27.0-32.0); Mean Corpuscular Volume 93.8 fL (80-94); Mean Platelet Vol. 9.7 fl (6.2-12.0); Platelet Count 217 K/mm3 (150-450); RBC Distribution Width CV 14.1 % (11.6-14.6); RBC Distribution Width SD 48.2 fl (35.1-43.9); Red Blood Count 3.86 M/mm3 (4.6-6.2); White Blood Count 6.8 K/mm3 (4.4-11.0)
[2019-12-26 10:33] LABS: Anion Gap 7 (5-15); BUN 22 mg/dL (7-18); BUN/Creat Ratio 19.6 RATIO (10-20); Calcium,Total 8.2 mg/dL (8.5-10.1); Chloride 109 mmol/L (98-107); Creatinine, Serum 1.12 mg/dL (0.70-1.30); EST Glomerular Filtration Rate 67 mL/min (>60); Est Glom Filt Rate - Afr Amer 81 mL/min (>60); Estimated Creatinine Clearance 55.22 ml/min; Glucose 115 mg/dL (74-106); Potassium 4.1 mmol/L (3.5-5.1); Sodium Level 143 mmol/L (136-145)
[2019-12-26] MEDS: Senna/Docusate Sodium 1 Tablet 2 TABLET PO ×2 (11:46→21:34)
[2019-12-26] MEDS: Memantine Hydrochloride 10 MG Tablet PO ×2 (11:46→21:34)
[2019-12-26] MEDS: Pantoprazole Sodium 40 MG Tablet PO (11:46)
[2019-12-26] MEDS: Multivitamins,Therapeutic Tablet 1 TABLET PO (11:47)
[2019-12-26] MEDS: Metoprolol Tartrate 25 MG Tablet PO (11:47)
[2019-12-26] MEDS: Acetaminophen 500 MG Tablet 1000 MG PO ×2 (14:09→21:34)
--- NOTE | 2019-12-26 14:30 | PCM.PN.HOSP ---
Patient Problems: Active and Suspected Problems (Last Reviewed 12/24/19 @ 13:[address] Garret Friend, DO) Displaced fracture of right femoral neck (Acute) Subjective: No issues overnight, seems more comfortable after surgery today. Resting Vitals/I&O's: Vital Signs Temp Pulse Resp BP Pulse Ox 97.5 F L 80 20 H 154/78 H 99 12/26/19 14:02 12/26/19 14:02 12/26/19 14:02 12/26/19 14:02 12/26/19 14:02 Oxygen Delivery Method Room Air Weight: 171 lb 8.937 oz Body Mass Index (BMI) 24.6 Finger Stick Blood Glucose 53 Intake and Output for Last 24 Hours 12/24/19 12/25/19 12/26/19 23:59 23:59 23:59 Intake Total 350 / 350 750 / 750 1097.5 / 1097.5 Output Total 1200 / 1200 1075 / 1075 930 / 930 Balance -850 / -850 -325 / -325 167.5 / 167.5 General: Alert, Oriented x3, Cooperative, No apparent distress HEENT: Atraumatic, PERRLA, EOMI, Normocephalic Oral: Moist Mucosa Neck: Supple, No JVD Lungs: Clear to auscultation, Normal air movement, No rhonchi, No wheeze, No rales, Diminished Cardiovascular: Regular rate, Regular Rhythm, Normal S1, Normal S2, No murmurs Abdomen: Soft, Non Tender, Non-Distended, No Hepato-splenomegaly Extremities: No edema, Capillary Refill Less than 3 Seconds Skin: No rashes, No breakdown, Dressing CDI Neurological: Neuro grossly intact, Sensory exam intact to light touch and pain, - - Resting tremor Psych/Mental Status: Normal Affect, Appropriate Laboratory Results 12/26/19 05:12: WBC 6.3, RBC 3.84 L, Hgb 11.3 L, Hct 35.6 L, MCV 92.7, MCH 29.4, MCHC 31.7 L, RDW Std Deviation 48.1 H, RDW Coeff of Tevin 14.2, Plt Count 216, MPV 9.8, Immature Gran % (Auto) 0.600, Neut % (Auto) 68.0, Lymph % (Auto) 14.9 L, [place] % (Auto) 13.0 H, Eos % (Auto) 3.2, Baso % (Auto) 0.3, Absolute Neuts (auto) 4.3, Absolute Lymphs (auto) 0.94, Nucleated RBC % 0 12/26/19 05:12: Sodium 142, Potassium 4.0, Chloride 106, Carbon Dioxide 29.0, Anion Gap 7, BUN 22 H, Creatinine 1.11, Estim Creat Clear Calc 55.72, Est GFR (MDRD) Af Amer 82, Est GFR (MDRD) Non-Af 68, BUN/Creatinine Ratio 19.8, Glucose 109 H, Calcium 8.5 12/26/19 05:12: Blood Type O POSITIVE, Antibody Screen NEGATIVE 12/26/19 09:55: WBC 6.8, RBC 3.86 L, Hgb 11.4 L, Hct 36.2 L, MCV 93.8, MCH 29.5, MCHC 31.5 L, RDW Std Deviation 48.2 H, RDW Coeff of Tevin 14.1, Plt Count 217, MPV 9.7 12/26/19 09:55: Sodium 143, Potassium 4.1, Chloride 109 H, Carbon Dioxide 27.0, Anion Gap 7, BUN 22 H, Creatinine 1.12, Estim Creat Clear Calc 55.22, Est GFR (MDRD) Af Amer 81, Est GFR (MDRD) Non-Af 67, BUN/Creatinine Ratio 19.6, Glucose 115 H, Calcium 8.2 L Current Medications Acetaminophen (Tylenol) 650 mg PO Q6H PRN PRN PRN Reason: Pain Score 1-10/Temp > 100.7 F Acetaminophen (Tylenol) 1,000 mg PO Q8 [facility] Last Admin: 12/26/19 14:09 Dose: 1,000 mg Documented by: Buspirone HCl (Buspar) 5 mg PO QHS PRN PRN Reason: ANXIETY Dextrose (D50w Syringe) 0 gm IV X1 PRN; Protocol PRN Reason: Hypoglycemia Enoxaparin Sodium (Lovenox) 40 mg SC DAILY@0600 [facility] Glucagon () 1 mg IM .X1 PRN PRN Reason: Hypoglycemia Sodium Chloride () 250 mls @ 15 mls/hr IV .[id number] PRN PRN Reason: Saline Flush Sodium Chloride () 250 mls @ 15 mls/hr IV .[id number] PRN PRN Reason: Additional IVPB Infusion Sodium Chloride () 1,000 mls @ 75 mls/hr IV .[id number] [facility] Last Admin: 12/26/19 10:14 Dose: 75 mls/hr Documented by: Cefazolin Sodium () 1 gm in 50 mls @ 150 mls/hr IV Q8H [facility] Stop: 12/27/19 00:04 Memantine (Namenda) 10 mg PO BID [facility] Last Admin: 12/26/19 11:46 Dose: 10 mg Documented by: Metoprolol Tartrate (Lopressor (Beta Norbert)) 25 mg PO DAILY [facility] Last Admin: 12/26/19 11:47 Dose: 25 mg Documented by: Multivitamins (Multivitamin) 1 tablet PO DAILY@0800 [facility] Last Admin: 12/26/19 11:47 Dose: 1 tablet Documented by: Ondansetron HCl (Zofran) 4 mg IV Q8H PRN PRN PRN Reason: NAUSEA Oxybutynin Chloride (Ditropan) 5 mg PO QHS [facility] Last Admin: 12/25/19 21:53 Dose: 5 mg Documented by: Oxycodone HCl (Oxyir) 5 mg PO Q4H PRN PRN PRN Reason: Pain Score 6-10/10 Pantoprazole Sodium (Protonix) 40 mg PO DAILY [facility] Last Admin: 12/26/19 11:46 Dose: 40 mg Documented by: Polyethylene Glycol (Miralax) 17 gm PO DAILY [facility] Last Admin: 12/26/19 11:46 Dose: Not Given Documented by: Pravastatin Sodium (Pravachol) 80 mg PO QHS [facility] Last Admin: 12/25/19 21:53 Dose: 80 mg Documented by: Senna/Docusate Sodium (Senokot-S, Cassie-Colace) 2 tablet PO BID [facility] Last Admin: 12/26/19 11:46 Dose: 2 tablet Documented by: Sodium Chloride () 10 - 40 ml IV UD PRN PRN Reason: SALINE FLUSH Last Admin: 12/26/19 00:14 Dose: 10 ml Documented by: STROKE Vital Signs/Narrative: Vital Signs Temp Pulse Resp BP Pulse Ox 12/26/19 14:02 97.5 F L 80 20 H 154/78 H 99 12/26/19 12:02 97 F L 75 20 H 141/68 H 99 12/26/19 11:47 79 148/97 H Medical Necessity - Tobacco Use Smoking Status: Former smoker Assessment/Plan All Active Problems (Last Reviewed 12/24/19 @ 13:[address] Garret Friend, DO) Displaced fracture of right femoral neck (Acute) History of coronary angioplasty (Resolved 05/06/02) Accident due to mechanical fall without injury (Resolved) Encephalopathy acute (Resolved) Febrile illness (Resolved) Fracture of one rib, left side, initial encounter for closed fracture (Resolved) Hypoglycemia (Resolved) UTI (urinary tract infection) (Resolved) 1. Right hip fracture status post surgical repair 12/26/2019 -Has an impacted right femoral neck fracture -Continue with his pain regimen and bowel regimen - PT/OT 2. Paroxysmal A. fib/HTN/HLD -Blood pressure is stable -Continue with metoprolol as well as aspirin if okay with Ortho -Continue with pravastatin 3. Parkinson's dementia/depression -He does have severe dementia, continue with his Namenda -Continue with BuSpar 4. GERD -Stable -Continue with PPI 5. CKD 3 -Creatinine and GFR stable -We will monitor DVT: SCDs Inpatient E&M: [id number] Subs Hosp L2
[2019-12-26] MEDS: Cefazolin 1 GM/50 ML BAG IV ×2 (15:49→23:15)
[2019-12-26] MEDS: Pravastatin 80 MG Tablet PO (21:34)
[2019-12-26] MEDS: Oxybutynin 5 MG Tablet PO (21:34)
[2019-12-27 02:30] VITALS: BP 120/65; PULSE 79; RESP 18; TEMP 37.3; O2SAT 98; BMI 24.6
[2019-12-27] MEDS: Ondansetron 4 MG/2 ML Vial IV (03:23)
[2019-12-27 06:02] LABS: Hemoglobin 10.4 g/dL (13.0-16.5); Mean Corp Hgb Conc 31.5 g/dL (32-36); Mean Corpuscular Hgb 29.2 pg (27.0-32.0); Mean Corpuscular Volume 92.7 fL (80-94); Mean Platelet Vol. 9.6 fl (6.2-12.0); Platelet Count 204 K/mm3 (150-450); RBC Distribution Width CV 14.1 % (11.6-14.6); RBC Distribution Width SD 47.8 fl (35.1-43.9); Red Blood Count 3.56 M/mm3 (4.6-6.2); White Blood Count 7.2 K/mm3 (4.4-11.0)
[2019-12-27 06:10] VITALS: BMI 24.6
[2019-12-27] MEDS: Acetaminophen 500 MG Tablet 1000 MG PO (06:11)
[2019-12-27] MEDS: Enoxaparin 40 MG/0.4 ML Syringe SC (06:11)
[2019-12-27 06:27] LABS: Anion Gap 5 (5-15); BUN 16 mg/dL (7-18); Calcium,Total 7.9 mg/dL (8.5-10.1); Chloride 111 mmol/L (98-107); EST Glomerular Filtration Rate 76 mL/min (>60); Est Glom Filt Rate - Afr Amer 93 mL/min (>60); Estimated Creatinine Clearance 61.85 ml/min; Glucose 131 mg/dL (74-106); Potassium 3.6 mmol/L (3.5-5.1); Sodium Level 141 mmol/L (136-145)
[2019-12-27 08:38] VITALS: BP 137/59; PULSE 79; RESP 16; TEMP 37; O2SAT 100
[2019-12-27] MEDS: Multivitamins,Therapeutic Tablet 1 TABLET PO (08:57)
[2019-12-27 08:58] VITALS: PULSE 79
[2019-12-27] MEDS: Senna/Docusate Sodium 1 Tablet 2 TABLET PO (08:58)
[2019-12-27] MEDS: Pantoprazole Sodium 40 MG Tablet PO (08:58)
[2019-12-27] MEDS: Metoprolol Tartrate 25 MG Tablet PO (08:58)
[2019-12-27] MEDS: Memantine Hydrochloride 10 MG Tablet PO (08:58)
--- NOTE | 2019-12-27 09:21 | PCM.PN.HOSP ---
Patient Problems: Active and Suspected Problems (Last Reviewed 12/24/19 @ 13:[address] Garret Friend, DO) Displaced fracture of right femoral neck (Acute) Vitals/I&O's: Vital Signs Temp Pulse Resp BP Pulse Ox 98.6 F 79 16 137/59 H 100 12/27/19 08:38 12/27/19 08:58 12/27/19 08:38 12/27/19 08:38 12/27/19 08:38 Oxygen Delivery Method Room Air Weight: 171 lb 8.937 oz Body Mass Index (BMI) 24.6 Finger Stick Blood Glucose 53 Intake and Output for Last 24 Hours 12/25/19 12/26/19 12/27/19 23:59 23:59 23:59 Intake Total 750 / 750 2412.5 / 2412.5 400 / 400 Output Total 1075 / 1075 1330 / 1330 850 / 850 Balance -325 / -325 1082.5 / 1082.5 -450 / -450 Laboratory Results 12/26/19 09:55: WBC 6.8, RBC 3.86 L, Hgb 11.4 L, Hct 36.2 L, MCV 93.8, MCH 29.5, MCHC 31.5 L, RDW Std Deviation 48.2 H, RDW Coeff of Tevin 14.1, Plt Count 217, MPV 9.7 12/26/19 09:55: Sodium 143, Potassium 4.1, Chloride 109 H, Carbon Dioxide 27.0, Anion Gap 7, BUN 22 H, Creatinine 1.12, Estim Creat Clear Calc 55.22, Est GFR (MDRD) Af Amer 81, Est GFR (MDRD) Non-Af 67, BUN/Creatinine Ratio 19.6, Glucose 115 H, Calcium 8.2 L 12/27/19 05:50: WBC 7.2, RBC 3.56 L, Hgb 10.4 L, Hct 33.0 L, MCV 92.7, MCH 29.2, MCHC 31.5 L, RDW Std Deviation 47.8 H, RDW Coeff of Tevin 14.1, Plt Count 204, MPV 9.6 12/27/19 05:50: Sodium 141, Potassium 3.6, Chloride 111 H, Carbon Dioxide 25.0, Anion Gap 5, BUN 16, Creatinine 1.00, Estim Creat Clear Calc 61.85, Est GFR (MDRD) Af Amer 93, Est GFR (MDRD) Non-Af 76, BUN/Creatinine Ratio 16.0, Glucose 131 H, Calcium 7.9 L Current Medications Acetaminophen (Tylenol) 650 mg PO Q6H PRN PRN PRN Reason: Pain Score 1-10/Temp > 100.7 F Acetaminophen (Tylenol) 1,000 mg PO Q8 [facility] Last Admin: 12/27/19 06:11 Dose: 1,000 mg Documented by: Buspirone HCl (Buspar) 5 mg PO QHS PRN PRN Reason: ANXIETY Dextrose (D50w Syringe) 0 gm IV X1 PRN; Protocol PRN Reason: Hypoglycemia Enoxaparin Sodium (Lovenox) 40 mg SC DAILY@0600 [facility] Last Admin: 12/27/19 06:11 Dose: 40 mg Documented by: Glucagon () 1 mg IM .X1 PRN PRN Reason: Hypoglycemia Sodium Chloride () 250 mls @ 15 mls/hr IV .[id number] PRN PRN Reason: Saline Flush Sodium Chloride () 250 mls @ 15 mls/hr IV .[id number] PRN PRN Reason: Additional IVPB Infusion Sodium Chloride () 1,000 mls @ 75 mls/hr IV .[id number] [facility] Last Admin: 12/26/19 23:14 Dose: 75 mls/hr Documented by: Memantine (Namenda) 10 mg PO BID [facility] Last Admin: 12/27/19 08:58 Dose: 10 mg Documented by: Metoprolol Tartrate (Lopressor (Beta Norbert)) 25 mg PO DAILY [facility] Last Admin: 12/27/19 08:58 Dose: 25 mg Documented by: Multivitamins (Multivitamin) 1 tablet PO DAILY@0800 [facility] Last Admin: 12/27/19 08:57 Dose: 1 tablet Documented by: Ondansetron HCl (Zofran) 4 mg IV Q8H PRN PRN PRN Reason: NAUSEA Last Admin: 12/27/19 03:23 Dose: 4 mg Documented by: Oxybutynin Chloride (Ditropan) 5 mg PO QHS [facility] Last Admin: 12/26/19 21:34 Dose: 5 mg Documented by: Oxycodone HCl (Oxyir) 5 mg PO Q4H PRN PRN PRN Reason: Pain Score 6-10/10 Pantoprazole Sodium (Protonix) 40 mg PO DAILY [facility] Last Admin: 12/27/19 08:58 Dose: 40 mg Documented by: Polyethylene Glycol (Miralax) 17 gm PO DAILY [facility] Last Admin: 12/27/19 08:58 Dose: Not Given Documented by: Pravastatin Sodium (Pravachol) 80 mg PO QHS [facility] Last Admin: 12/26/19 21:34 Dose: 80 mg Documented by: Senna/Docusate Sodium (Senokot-S, Cassie-Colace) 2 tablet PO BID [facility] Last Admin: 12/27/19 08:58 Dose: 2 tablet Documented by: Sodium Chloride () 10 - 40 ml IV UD PRN PRN Reason: SALINE FLUSH Last Admin: 12/26/19 00:14 Dose: 10 ml Documented by: STROKE Vital Signs/Narrative: Vital Signs Temp Pulse Resp BP Pulse Ox 12/27/19 08:58 79 12/27/19 08:38 98.6 F 79 16 137/59 H 100 Medical Necessity - Tobacco Use Smoking Status: Former smoker Assessment/Plan All Active Problems (Last Reviewed 12/24/19 @ 13:[address] Garret Friend, DO) Displaced fracture of right femoral neck (Acute) History of coronary angioplasty (Resolved 05/06/02) Accident due to mechanical fall without injury (Resolved) Encephalopathy acute (Resolved) Febrile illness (Resolved) Fracture of one rib, left side, initial encounter for closed fracture (Resolved) Hypoglycemia (Resolved) UTI (urinary tract infection) (Resolved) 1. Right hip fracture status post surgical repair 12/26/2019 -Has an impacted right femoral neck fracture -Continue with his pain regimen and bowel regimen - PT/OT 2. Paroxysmal A. fib/HTN/HLD -Blood pressure is stable -Continue with metoprolol as well as aspirin if okay with Ortho -Continue with pravastatin 3. Parkinson's dementia/depression -He does have severe dementia, continue with his Namenda -Continue with BuSpar 4. GERD -Stable -Continue with PPI 5. CKD 3 -Creatinine and GFR stable -We will monitor DVT: SCDs
--- NOTE | 2019-12-27 10:25 | PCM.DC ---
- Discharge Diagnoses Current Active Problems: Current Active and Chronic Problems (Last Reviewed 12/24/19 @ 13:[address] Garret Friend DO) Displaced fracture of right femoral neck (Acute) Allergies/Adverse Reactions: Allergies No Known Allergies Allergy (Verified 06/25/19 14:10) Medications to take at Discharge Pravastatin [Pravachol] 80 mg PO QHS 10/07/17 memantine 10 mg tablet 10 mg PO DAILY tab 10/31/17 Menthol [Biofreeze] 1 applic TP BID PRN 08/25/18 Multivitamin [Daily Multiple Vitamin] 1 tab PO DAILY 08/25/18 Omeprazole 40 mg PO DAILY 08/25/18 Polyethylene Glycol 3350 [Purelax] 17 gm PO DAILY 08/25/18 Sennosides [Senna] 8.6 mg PO QHS 08/25/18 docusate sodium 100 mg capsule 100 mg PO DAILY PRN 06/25/19 oxybutynin chloride 5 mg tablet 5 mg PO QHS 06/25/19 Aspirin E.C. [Ecotrin] 325 mg PO QHS 12/24/19 Calcium Carbonate [Tums] 200 mg PO Q2H PRN PRN 12/24/19 Calmicid 1 tab PO TID 12/24/19 Hydrocodone Bitart/Apap 5-325 [[place] 5MG-325MG] 1 tab PO Q8H PRN PRN 12/24/19 Memantine Hydrochloride [Namenda] 10 mg PO QHS 12/24/19 Metoprolol(XL)Succ [Toprol Xl (Beta Norbert)] 25 mg PO DAILY 12/24/19 Oxybutynin Chloride 5 mg PO DAILY 12/24/19 Oxymetazoline 0.05% [Afrin (BKC)] 15 spray NASAL DAILY PRN 12/24/19 busPIRone [Buspar] 5 mg PO DAILY 12/24/19 busPIRone [Buspar] 5 mg PO QHS PRN 12/24/19 Primary Care Physician: Ricardo Martínez Chi, MD [Primary Care Provider] - Test Results: Test results from this visit will be discussed in further detail at your follow-up appointment, if applicable.
--- NOTE | 2019-12-27 10:34 | PCM.TXEXTCAR ---
- Diet 12/27/19 07:45 Diet: Regular Diet Is pt able to select menu?: No - Routine Orders/Code Status Suppository Type: Dulcolax 10mg Suppository Frequency: Daily PRN - Wound(s) HIP RIGHT Wound Type: Surgical Incision - Therapies Weight Bearing: Weight bearing as tolerated Extremity Affected:: Right Lower Physical Therapy: Eval and Treat Occupational Therapy: Eval and Treat Speech Therapy: Eval and Treat - Allergies/Procedures Done in Hospital Allergies/Adverse Reactions: Allergies No Known Allergies Allergy (Verified 06/25/19 14:10) - Type of Care/Length of Stay Estimated LOS: Convalescent Care Less Than 30 days Type of Care Needed: Skilled Rehab Potential: Good Prognosis: Good - Additional Orders/Day of Discharge Day of Discharge: 12/27/19 - Follow Up Care Primary Care Physician: Ricardo Martínez Chi, MD [Primary Care Provider] - Please follow up with your Primary Care Physician in: IN 2 WEEKS Please Follow Up With: Britton Levy, When: IN 1-2 WEEKS FOR RIGHt hip fracture
--- NOTE | 2019-12-27 12:00 | CASEMGMT ---
Social Work Note Pt is able to discharge back to [facility] today. TIFFANIE faxed completed discharge paperwork to [facility] including transfer to extended care facility, signed medication list and any scripts. Original in SNF Folder and copy on pt's chart. TIFFANIE arranged transportation via [facility] through [facility] for 2:00pm. Transportation form complete and placed on SNF folder and copy on pt's chart. TIFFANIE placed a call to Barby at [facility] and left message regarding discharge and transportation time. Barby confirms that [facility] is not needed. Pt's ROGELIO Sutherland present at [facility]. TIFFANIE met with Ena and updated her that pt will be discharged today and updated her on transportation time. Ena states understanding. Plan: Return to [facility] with [facility] transporting pt at 2:00pm Bernice GONSALEZ, [employer]
--- NOTE | 2019-12-27 13:01 | PCM.PN.ORT ---
Patient Problems: Active and Suspected Problems (Last Reviewed 12/24/19 @ 13:[address] Garret Friend, DO) Displaced fracture of right femoral neck (Acute) Subjective: Patient lying in bed sleeping. Patient easy to awake. Alert to his surroundings. Patient states he is little no pain at this time. Patient denies chest pain, shortness of breath, calf pain, nausea vomiting. Patient states he is ready for discharge today. Patient has no other complaints at this time. Objective: Dressings clean dry intact. Vital signs, and labs were reviewed and within normal limits. Patient is afebrile. The patient has good flexion-extension of the right hip with mild pain. He has good flexion-extension of the knee ankle and foot. Patient has no pain on palpation right calf, negative signs or symptoms of DVT. Neurovascular is otherwise intact. - Physical Exam Vitals/I&O's: Vital Signs Temp Pulse Resp BP Pulse Ox 98.6 F 79 16 137/59 H 100 12/27/19 08:38 12/27/19 08:58 12/27/19 08:38 12/27/19 08:38 12/27/19 08:38 Oxygen Delivery Method Room Air Weight: 77.818 kg Body Mass Index (BMI) 24.6 Finger Stick Blood Glucose 53 Intake and Output for Last 24 Hours 12/25/19 12/26/19 12/27/19 23:59 23:59 23:59 Intake Total 750 / 750 2412.5 / 2412.5 400 / 400 Output Total 1075 / 1075 1330 / 1330 850 / 850 Balance -325 / -325 1082.5 / 1082.5 -450 / -450 General: Alert HEENT: PERRLA Oral: Moist Mucosa Neurological: Cranial nerves II-XII grossly intact Psych/Mental Status: Normal Affect, Alert and oriented to time, place, person, mood and affect Laboratory Results 12/27/19 05:50: WBC 7.2, RBC 3.56 L, Hgb 10.4 L, Hct 33.0 L, MCV 92.7, MCH 29.2, MCHC 31.5 L, RDW Std Deviation 47.8 H, RDW Coeff of Tevin 14.1, Plt Count 204, MPV 9.6 12/27/19 05:50: Sodium 141, Potassium 3.6, Chloride 111 H, Carbon Dioxide 25.0, Anion Gap 5, BUN 16, Creatinine 1.00, Estim Creat Clear Calc 61.85, Est GFR (MDRD) Af Amer 93, Est GFR (MDRD) Non-Af 76, BUN/Creatinine Ratio 16.0, Glucose 131 H, Calcium 7.9 L Current Medications Acetaminophen (Tylenol) 650 mg PO Q6H PRN PRN PRN Reason: Pain Score 1-10/Temp > 100.7 F Acetaminophen (Tylenol) 1,000 mg PO Q8 [facility] Last Admin: 12/27/19 06:11 Dose: 1,000 mg Documented by: Buspirone HCl (Buspar) 5 mg PO QHS PRN PRN Reason: ANXIETY Dextrose (D50w Syringe) 0 gm IV X1 PRN; Protocol PRN Reason: Hypoglycemia Enoxaparin Sodium (Lovenox) 40 mg SC DAILY@0600 [facility] Last Admin: 12/27/19 06:11 Dose: 40 mg Documented by: Glucagon () 1 mg IM .X1 PRN PRN Reason: Hypoglycemia Sodium Chloride () 250 mls @ 15 mls/hr IV .[id number] PRN PRN Reason: Saline Flush Sodium Chloride () 250 mls @ 15 mls/hr IV .[id number] PRN PRN Reason: Additional IVPB Infusion Sodium Chloride () 1,000 mls @ 75 mls/hr IV .[id number] [facility] Last Admin: 12/26/19 23:14 Dose: 75 mls/hr Documented by: Memantine (Namenda) 10 mg PO BID [facility] Last Admin: 12/27/19 08:58 Dose: 10 mg Documented by: Metoprolol Tartrate (Lopressor (Beta Norbert)) 25 mg PO DAILY [facility] Last Admin: 12/27/19 08:58 Dose: 25 mg Documented by: Multivitamins (Multivitamin) 1 tablet PO DAILY@0800 [facility] Last Admin: 12/27/19 08:57 Dose: 1 tablet Documented by: Ondansetron HCl (Zofran) 4 mg IV Q8H PRN PRN PRN Reason: NAUSEA Last Admin: 12/27/19 03:23 Dose: 4 mg Documented by: Oxybutynin Chloride (Ditropan) 5 mg PO QHS [facility] Last Admin: 07/12/20 21:34 Dose: 5 mg Documented by: Oxycodone HCl (Oxyir) 5 mg PO Q4H PRN PRN PRN Reason: Pain Score 6-10/10 Pantoprazole Sodium (Protonix) 40 mg PO DAILY [facility] Last Admin: 12/27/19 08:58 Dose: 40 mg Documented by: Polyethylene Glycol (Miralax) 17 gm PO DAILY [facility] Last Admin: 12/27/19 08:58 Dose: Not Given Documented by: Pravastatin Sodium (Pravachol) 80 mg PO QHS [facility] Last Admin: 12/26/19 21:34 Dose: 80 mg Documented by: Senna/Docusate Sodium (Senokot-S, Cassie-Colace) 2 tablet PO BID [facility] Last Admin: 12/27/19 08:58 Dose: 2 tablet Documented by: Sodium Chloride () 10 - 40 ml IV UD PRN PRN Reason: SALINE FLUSH Last Admin: 12/26/19 00:14 Dose: 10 ml Documented by: Medical Necessity - Tobacco Use Smoking Status: Former smoker Assessment/Plan All Active Problems (Last Reviewed 12/24/19 @ 13:[address] Garret Friend, DO) Displaced fracture of right femoral neck (Acute) History of coronary angioplasty (Resolved 05/06/02) Accident due to mechanical fall without injury (Resolved) Encephalopathy acute (Resolved) Febrile illness (Resolved) Fracture of one rib, left side, initial encounter for closed fracture (Resolved) Hypoglycemia (Resolved) UTI (urinary tract infection) (Resolved) Status post right hip hemiarthroplasty, status post right hip fracture. Plan 1. Continue all pain medications as prescribed 2. Continue physical therapy outpatient after discharge. 3. Continue Lovenox as prescribed for postop DVT prophylaxis 4. Continue /encourage incentive spirometry 5. Discharge when cleared with medicine. 6. Follow-up 2 weeks for staple removal.
--- NOTE | 2019-12-27 13:05 | DCINST_ITS ---
Discharge Diet: No Restrictions Discharge Activity: May Not Drive, May Shower, Use Walker May shower in (days): 3 - only if incision is dry and without drainage. Do NOT soak/submerge in tub/pool/madden/stream/hot tub. May resume sexual activity in: No Restrictions Ice area for (Minutes): 20 - every hour while awake Weight Bearing Status: Weight bearing as tolerated Lifting Restrictions: 20 pounds Elevate: Operative Extremity Call your doctor if your incision/area has: Continuous Slow Oozing, Sudden Increased Bleeding, Increased Pain/ Swelling, Increased Redness, Foul Smelling Discharge Call your doctor if you observe: Fever of 101 or Higher, Inability to urinate, Inability to have a bowel movement, Shortness of breath, Fainting spells, Chest pain, Increased palpitations (irregular heartbeat), Calf discomfort, Uncontrolled pain Change Dressing in (Days):: 0 - Change daily and as needed. Remove Dressing in (days):: 8 Cleanse incision/area with: Soap & Water Allergies/Adverse Reactions: Allergies No Known Allergies Allergy (Verified 06/25/19 14:10) Medications to take at Discharge Pravastatin [Pravachol] 80 mg PO QHS 10/07/17 Menthol [Biofreeze] 1 applic TP BID PRN 08/25/18 Multivitamin [Daily Multiple Vitamin] 1 tab PO DAILY 08/25/18 Omeprazole 40 mg PO DAILY 08/25/18 Polyethylene Glycol 3350 [Purelax] 17 gm PO DAILY 08/25/18 docusate sodium 100 mg capsule 100 mg PO DAILY PRN 06/25/19 oxybutynin chloride 5 mg tablet 5 mg PO QHS 06/25/19 Calcium Carbonate [Tums] 200 mg PO Q2H PRN PRN 12/24/19 Calmicid 1 tab PO TID 12/24/19 Hydrocodone Bitart/Apap 5-325 [[place] 5/325] 1 tab PO Q8H PRN PRN 12/24/19 Metoprolol(XL)Succ [Toprol Xl (Beta Norbert)] 25 mg PO DAILY 12/24/19 Oxybutynin Chloride 5 mg PO DAILY 12/24/19 Oxymetazoline 0.05% [Afrin (BKC)] 15 spray NASAL DAILY PRN 12/24/19 busPIRone [Buspar] 5 mg PO DAILY 12/24/19 busPIRone [Buspar] 5 mg PO QHS PRN 12/24/19 Acetaminophen [Tylenol Tablet] 650 mg PO Q6H PRN PRN tab 12/27/19 Apixaban [Eliquis] 2.5 mg PO BID #60 tab 12/27/19 Aspirin E.C. [Ecotrin] 81 mg PO QHS #30 tab 12/27/19 Memantine Hydrochloride [Namenda] 10 mg PO BID tab 12/27/19 Senna/Docusate Sodium [Senokot-S] 2 tab PO BID PRN PRN tab 12/27/19 The following prescriptions were given: Aspirin E.C. [Ecotrin] 81 mg PO QHS #30 tab Transmission Status: Received by [id number] Apixaban [Eliquis] 2.5 mg PO BID #60 tab Transmission Status: Received by [id number] Primary Care Physician: Ricardo Martínez Chi, MD [Primary Care Provider] - Please follow up with your Primary Care Physician in: IN 2 WEEKS Test Results: Test results from this visit will be discussed in further detail at your follow- up appointment, if applicable. Please Follow Up With: Britton Levy DO When: IN 1-2 WEEKS FOR RIGHt hip fracture
--- NOTE | 2019-12-27 13:45 | CHAPLAIN ---
Type of Pastoral Visit _x__ Initial Visit ___ Follow-up Visit ___ On-call Visit ___ General Patient Visit ___ Spiritual Assessment ___ Family Conference ___ Bereavement ___ Rapid Response ___ Code Blue ___ Other (describe below) Pastoral Care Referral From _x__ Patient ___ Family ___ Nurse ___ Physician ___ Steamtable Worker ___ Reptile Keeper ___ Other (describe below) Sacrament/Intervention ___ Active listening ___ Anointing ___ Religious ___ Bereavement ___ Communion ___ Michelle exploration ___ ___ Life review ___ Prayer ___ Reconciliation ___ Sacrament of Sick _x__ Supportive presence ___ Wedding ___ Other (describe below) Pastoral Comments patient was eating lunch; found pt to be hard of hearing; pt asked what hospital he was in; pt repeated three times that he was fine and did not need anything; pt only identified pain coming from surgery site
--- NOTE | 2019-12-27 15:19 | DS.PCM_ITS ---
Discharge Date and Diagnosis Date of Admission: 12/24/19 Date of Discharge: 12/27/19 - Primary Discharge Diagnosis Acute Problems: Active Problems (Last Reviewed 12/24/19 @ 13:[address] Garret Friend DO) Displaced fracture of right femoral neck (Acute) - Secondary Discharge Diagnosis Chronic Problems: Chronic Problems (Last Reviewed 12/24/19 @ 13:[address] Garret Friend DO) Atherosclerotic heart disease of [place] coronary artery without angina pectoris (Chronic) S/P cutting balloon to RCA in 2001; Paroxysmal atrial fibrillation (Chronic 06/23/02) S/P maze procedure in June 2002; Nonrheumatic tricuspid (valve) insufficiency (Chronic) Essential (primary) hypertension (Chronic) Hyperlipidemia (Chronic) Hospital Course and Treatment Operations: None Summary of Care Provided: The patient is a 79 year old M is admitted from orthopedic clinic with right hip fracture after fall couple days ago landing on right hip. Patient has pain, right lower extremity shortening and disability secondary to fracture. 1. Right displaced subcapital right hip fracture status post surgical repair 12/26/2019: Patient had right hip hemiarthroplasty by Dr. Britton Levy. Patient had pain control along with bowel regimen. PT and OT. Patient is being discharged to SNF. 2. Cardiac conditions: Paroxysmal A. fib and hypertension: Blood pressure is good. Continue metoprolol and aspirin 3. Dyslipidemia: On pravastatin 4. Parkinson's dementia/depression: Patient has severe dementia and is on Namenda which was recently increased to 10 mg twice daily. On BuSpar. 5. GERD -Stable -Continue with PPI 6. CKD 3 -Creatinine and GFR stable DVT for right hip fracture: On Lovenox while inpatient. Discharged on Eliquis 2.5 mg twice daily to continue for 4 weeks as per tolerated. Discontinue if platelet count drops less than 50,000 or hemoglobin less than 8 g% Objective: Seen and examined. Patient does not have fever or chills. Heart rate and blood pressure controlled. Has severe Parkinson's dementia on Namenda. On physical exam: General: Alert, Oriented x1, Cooperative, baseline ental status HEENT: Atraumatic, PERRLA, EOMI, Normocephalic Oral: No Gingival or Mucosal Lesions/ Ulcerations Neck: Supple, No JVD, Negative Carotid Bruits Lungs: Air entry diminished in bilateral lung bases. No crepitation/rhonchi Cardiovascular: Regular rate, Regular Rhythm, Normal S1, Normal S2, No murmurs Abdomen: Bowel Sounds Present, Soft, Non Tender, Non-Distended : No renal angle tenderness. No suprapubic tenderness. Extremities: No edema, Capillary Refill Less than 3 Seconds Skin: No rashes, No breakdown Musculoskeletal: Mild expected tenderness to right hip operative joint. Surgical dressing on right hip is dry. Neurological: Cranial nerves II-XII grossly intact, Deep Tendon Reflexes 2+/4 and Symmetrical, Neuro grossly intact Psych/Mental Status: Normal Affect, Appropriate - Physical Exam Vitals/I&O's: Vital Signs Temp Pulse Resp BP Pulse Ox 98.6 F 79 16 137/59 H 100 12/27/19 08:38 12/27/19 08:58 12/27/19 08:38 12/27/19 08:38 12/27/19 08:38 Oxygen Delivery Method Room Air Weight: 171 lb 8.937 oz Body Mass Index (BMI) 24.6 Finger Stick Blood Glucose 53 Intake and Output for Last 24 Hours 12/25/19 12/26/19 12/27/19 23:59 23:59 23:59 Intake Total 750 / 750 2412.5 / 2412.5 400 / 400 Output Total 1075 / 1075 1330 / 1330 850 / 850 Balance -325 / -325 1082.5 / 1082.5 -450 / -450 Laboratory Results 12/27/19 05:50: WBC 7.2, RBC 3.56 L, Hgb 10.4 L, Hct 33.0 L, MCV 92.7, MCH 29.2, MCHC 31.5 L, RDW Std Deviation 47.8 H, RDW Coeff of Tevin 14.1, Plt Count 204, MPV 9.6 12/27/19 05:50: Sodium 141, Potassium 3.6, Chloride 111 H, Carbon Dioxide 25.0, Anion Gap 5, BUN 16, Creatinine 1.00, Estim Creat Clear Calc 61.85, Est GFR (MDRD) Af Amer 93, Est GFR (MDRD) Non-Af 76, BUN/Creatinine Ratio 16.0, Glucose 131 H, Calcium 7.9 L Current Medications Acetaminophen (Tylenol) 650 mg PO Q6H PRN PRN PRN Reason: Pain Score 1-10/Temp > 100.7 F Acetaminophen (Tylenol) 1,000 mg PO Q8 [facility] Last Admin: 12/27/19 06:11 Dose: 1,000 mg Documented by: Buspirone HCl (Buspar) 5 mg PO QHS PRN PRN Reason: ANXIETY Dextrose (D50w Syringe) 0 gm IV X1 PRN; Protocol PRN Reason: Hypoglycemia Enoxaparin Sodium (Lovenox) 40 mg SC DAILY@0600 [facility] Last Admin: 12/27/19 06:11 Dose: 40 mg Documented by: Glucagon () 1 mg IM .X1 PRN PRN Reason: Hypoglycemia Sodium Chloride () 250 mls @ 15 mls/hr IV .[id number] PRN PRN Reason: Saline Flush Sodium Chloride () 250 mls @ 15 mls/hr IV .[id number] PRN PRN Reason: Additional IVPB Infusion Sodium Chloride () 1,000 mls @ 75 mls/hr IV .[id number] [facility] Last Admin: 12/26/19 23:14 Dose: 75 mls/hr Documented by: Memantine (Namenda) 10 mg PO BID [facility] Last Admin: 12/27/19 08:58 Dose: 10 mg Documented by: Metoprolol Tartrate (Lopressor (Beta Norbert)) 25 mg PO DAILY [facility] Last Admin: 12/27/19 08:58 Dose: 25 mg Documented by: Multivitamins (Multivitamin) 1 tablet PO DAILY@0800 [facility] Last Admin: 12/27/19 08:57 Dose: 1 tablet Documented by: Ondansetron HCl (Zofran) 4 mg IV Q8H PRN PRN PRN Reason: NAUSEA Last Admin: 12/27/19 03:23 Dose: 4 mg Documented by: Oxybutynin Chloride (Ditropan) 5 mg PO QHS [facility] Last Admin: 12/26/19 21:34 Dose: 5 mg Documented by: Oxycodone HCl (Oxyir) 5 mg PO Q4H PRN PRN PRN Reason: Pain Score 6-10/10 Pantoprazole Sodium (Protonix) 40 mg PO DAILY [facility] Last Admin: 12/27/19 08:58 Dose: 40 mg Documented by: Polyethylene Glycol (Miralax) 17 gm PO DAILY [facility] Last Admin: 12/27/19 08:58 Dose: Not Given Documented by: Pravastatin Sodium (Pravachol) 80 mg PO QHS [facility] Last Admin: 12/26/19 21:34 Dose: 80 mg Documented by: Senna/Docusate Sodium (Senokot-S, Cassie-Colace) 2 tablet PO BID [facility] Last Admin: 12/27/19 08:58 Dose: 2 tablet Documented by: Sodium Chloride () 10 - 40 ml IV UD PRN PRN Reason: SALINE FLUSH Last Admin: 12/26/19 00:14 Dose: 10 ml Documented by: Home Medications: Medications to take at Discharge Pravastatin [Pravachol] 80 mg PO QHS 10/07/17 Menthol [Biofreeze] 1 applic TP BID PRN 08/25/18 Multivitamin [Daily Multiple Vitamin] 1 tab PO DAILY 08/25/18 Omeprazole 40 mg PO DAILY 08/25/18 Polyethylene Glycol 3350 [Purelax] 17 gm PO DAILY 08/25/18 docusate sodium 100 mg capsule 100 mg PO DAILY PRN 06/25/19 oxybutynin chloride 5 mg tablet 5 mg PO QHS 06/25/19 Calcium Carbonate [Tums] 200 mg PO Q2H PRN PRN 12/24/19 Calmicid 1 tab PO TID 12/24/19 Hydrocodone Bitart/Apap 5-325 [[place] 5/325] 1 tab PO Q8H PRN PRN 12/24/19 Metoprolol(XL)Succ [Toprol Xl (Beta Norbert)] 25 mg PO DAILY 12/24/19 Oxybutynin Chloride 5 mg PO DAILY 12/24/19 Oxymetazoline 0.05% [Afrin (BKC)] 15 spray NASAL DAILY PRN 12/24/19 busPIRone [Buspar] 5 mg PO DAILY 12/24/19 busPIRone [Buspar] 5 mg PO QHS PRN 12/24/19 Acetaminophen [Tylenol Tablet] 650 mg PO Q6H PRN PRN tab 12/27/19 Apixaban [Eliquis] 2.5 mg PO BID #60 tab 12/27/19 Aspirin E.C. [Ecotrin] 81 mg PO QHS #30 tab 12/27/19 Memantine Hydrochloride [Namenda] 10 mg PO BID tab 12/27/19 Senna/Docusate Sodium [Senokot-S] 2 tab PO BID PRN PRN tab 12/27/19 Following Prescrptions Were Given to Patient: Aspirin E.C. [Ecotrin] 81 mg PO QHS #30 tab Transmission Status[email or web address] Apixaban [Eliquis] 2.5 mg PO BID #60 tab Transmission Status: [email or web address] Primary Care Physician: Ricardo Martínez Chi, MD [Primary Care Provider] - Please follow up with your Primary Care Physician in: IN 2 WEEKS Please Follow Up With: Britton Levy, DO When: IN 1-2 WEEKS FOR RIGHt hip fracture Medical Necessity - Tobacco Use Smoking Status: Former smoker Meaningful Use Info Meaningful Use Diagnoses (Choose all that apply): None applicable Inpatient E&M: [id number] [facility]
== END 2019-12-27 14:13 | disposition skilled nursing facility (03) | DRG 470 ==
LOC: ED 13:10 → MS3 13:51
PROVIDERS: Family Medicine; Orthopaedic Surgery; Emergency Provider Emergency Medicine; PCP Family Medicine Geriatric Medicine; Visit Provider Internal Medicine
PROC: 0SRR03A Replacement of Right Hip Joint, Femoral Surface with Ceramic Synthetic Substitute, Uncemented, Open Approach (ICD-10-PCS; CPT 27125; principal; 2019-12-26 07:05)
DX: S72.011A Unspecified intracapsular fracture of right femur, initial encounter for closed fracture (principal); W01.0XXA Fall on same level from slipping, tripping and stumbling without subsequent striking against object, initial encounter; Y93.01 Activity, walking, marching and hiking; I25.10 Atherosclerotic heart disease of native coronary artery without angina pectoris; I48.0 Paroxysmal atrial fibrillation; I12.9 Hypertensive chronic kidney disease with stage 1 through stage 4 chronic kidney disease, or unspecified chronic kidney disease; N18.3 Chronic kidney disease, stage 3 (moderate); E78.5 Hyperlipidemia, unspecified; I36.1 Nonrheumatic tricuspid (valve) insufficiency; N40.0 Benign prostatic hyperplasia without lower urinary tract symptoms; G20 Parkinson's disease; F02.80 Dementia in other diseases classified elsewhere, unspecified severity, without behavioral disturbance, psychotic disturbance, mood disturbance, and anxiety; K21.9 Gastro-esophageal reflux disease without esophagitis; K59.09 Other constipation; F32.9 Major depressive disorder, single episode, unspecified; Z91.81 History of falling; Z98.61 Coronary angioplasty status; Z79.82 Long term (current) use of aspirin; Z79.899 Other long term (current) drug therapy; Z87.891 Personal history of nicotine dependence
CPT/HCPCS: 36415; 51702; 71045; 73502; 80048; 81001; 84484; 85025; 85027; 86850; 86900; 86901; 87635; 88305; 88311; 93005; 97163; 97166; 99285; C1776; G2023; J7030; A4216; J2405; U0003

== ENCOUNTER 2020-06-17 12:11 | Emergency (ER) | payer MEDICARE, MEDICAID, OTHER, SELFPAY ==
[2020-06-17 12:12] VITALS: BMI 25.2
[2020-06-17 12:16] VITALS: BP 122/83; PULSE 97; RESP 25; TEMP 37.7; O2SAT 90; BMI 25.7
[2020-06-17 12:21] VITALS: BP 122/83; PULSE 98; RESP 25; TEMP 37.7; O2SAT 94
--- NOTE | 2020-06-17 12:33 | EKG12_ITS ---
Test Reason : BLOOD CLOT Blood Pressure : / mmHG Vent. Rate : 095 BPM Atrial Rate : 095 BPM P-R Int : 154 ms QRS Dur : 080 ms QT Int : 412 ms P-R-T Axes : 023 000 -06 degrees QTc Int : 517 ms Sinus rhythm with Premature atrial complexes Nonspecific ST and T wave abnormality Abnormal ECG Confirmed by CHAGO SALINAS, ALYSSIA ([id number]), online content editor HERNANDEZ KAUFMAN ([id number]) on 06/19/2020 8:47:09 AM Referred By: PORTER Confirmed By:ALYSSIA ANDERS MD
--- NOTE | 2020-06-17 12:36 | CT_ITS ---
STUDY: CTA OF THE ABDOMINAL AORTA AND BILATERAL LOWER EXTREMITIES REASON FOR EXAM: Male, 80 years old. RT LEG ISCHEMIA, RT LEG COLD AND PALE, PREV RT HIP ARTHROPLASTY, HX-PARKINSONS, HTN, A-FIB, CAD, COPD RADIATION DOSAGE (If Supplied By Facility): CTDIvol = ( 7.29 ) mGy, DLP = ( 1158.24 ) mGycm TECHNIQUE: Axial CT angiography multi-detector data acquisition was obtained from the lung bases to the toe following intravenous administration of IV 100mL Isovue-370. Axial images and MIP images were reconstructed from the axial data set. Post-processing of the angiographic images was performed, with multiplanar reformation and 3D reconstruction. Individualized dose optimization techniques were used for this CT. TECHNICAL QUALITY: Good COMPARISON: None. Descriptors of Narrowing: None (0%) Mild (< 50%) Moderate (50-70%) Severe (70-90%) Subtotal/Total Occlusion (90-100%) Non-Evaluable (technically non-diagnostic FINDINGS: Abdominal aorta: There is mild diffuse narrowing. Celiac and superior mesenteric arteries: There is mild diffuse narrowing. Inferior mesenteric artery: No demonstrated narrowing. Right renal artery(arteries): There is mild diffuse narrowing. Left renal artery(arteries): There is mild diffuse narrowing. Right common iliac artery: There is mild diffuse narrowing. Right external iliac artery: No demonstrated narrowing. Right internal iliac artery: There is mild diffuse narrowing. Left common iliac artery: There is mild diffuse narrowing. Left external iliac artery: No demonstrated narrowing. Left internal iliac artery: There is mild diffuse narrowing. RIGHT LOWER EXTREMITY Right common femoral artery: There is mild diffuse narrowing. Right profundus femoris: No demonstrated narrowing. Right superficial femoral: Abrupt occlusion of the distal right superficial femoral artery distal to the adductor canal. Right popliteal artery: Occluded Right tibioperoneal trunk: Occluded Right anterior tibial artery: Occluded Right posterior tibial artery: Occluded Right peroneal artery: Occluded LEFT LOWER EXTREMITY Left common femoral artery: There is mild diffuse narrowing. Left profundus femoris: No demonstrated narrowing. Left superficial femoral: No demonstrated narrowing. Left popliteal artery: There is mild diffuse narrowing. Focal moderate (60%) stenosis of the distal left popliteal artery. Left tibioperoneal trunk: There is mild diffuse narrowing. Left anterior tibial artery: No demonstrated narrowing. Left posterior tibial artery: No demonstrated narrowing. Left peroneal artery: No demonstrated narrowing. CT/CTA Abd w/Runoff W/WO Contrast IMPRESSION: 1. Mild amount of peripheral calcified plaque in the abdominal aorta but no aortic stenosis or abdominal aortic aneurysm. 2. No chronic mesenteric ischemia or significant renal artery stenosis. 3. Mild amount of peripheral calcified plaque within the common iliac arteries, internal iliac arteries, and common femoral arteries. 4. Abrupt occlusion of the distal right superficial femoral artery distal to the adductor canal with an occluded right popliteal artery and occluded runoff vessels on the right. 5. Focal moderate () 60%) stenosis of the distal left popliteal artery with patent three-vessel runoff on the left. Electronically Signed: Virgil Coffey MD at 14:04 EST Tel , Service support ,
--- NOTE | 2020-06-17 12:41 | ED.DCSUM_ITS ---
- ER Visit Summary Date of Service: 06/17/20 Chief Complaint: Right lower leg pale and cold History of Present Illness: The patient is a 80 M 3 of dementia, stroke, COPD, Covid positive in the last 2 weeks, Parkinson's disease, difficulty speaking and prior right hip arthroplasty secondary to hip fracture. Also prior sternotomy. Patient is unable give any history currently is not speaking. [place] is [place]. Reportedly they noticed his right leg was pale and cold sentiment for evaluation. He has not complained of any pain. I did call his stepdaughter uses power of assistant city attorney and she does want him to be aggressively treated at this time. She is also discussing this with her mother who also also lives in the same [place]. Physical Examination: Vital signs are stable initial blood pressure 122/83. He does not look septic or toxic. Pulse ox 94% on 2 L. No hypoxia. HEENT exam unremarkable. Pupils round reactive light. Atraumatic. Neck nontender. Lungs clear to auscultation bilaterally. Heart regular rhythm rate about 98 no murmur. Abdomen soft nontender normal bowel sounds no peritoneal signs. No pulsatile mass. Equal symmetrical strong femoral pulses. Both thighs are warm. No swelling. No deformity. Below his right knee the right lower extremity is pale and cool to the touch. A distinct difference from the left which is warm and not pale. There is no calf swelling. No edema. There is no reproducible tenderness. Neurologically is awake. His eyes are open. He is not following commands. He is not answering questions. Test Results: CBC white count of 10 hemoglobin 13. Electrolytes show sodium 152 chloride 118. Gap 8. BUN of 46 creatinine 1.42 with the prior being 1.1. PT, INR and PTT are all normal. EKG showed a normal sinus rhythm rate of 95 with PACs. No signs of dysrhythmia nor ischemia. Chest x-ray portable 1 view shows chronic changes prior sternotomy otherwise no acute abnormality. CTA of the right lower extremity shows no AAA in the abdomen. There is an acute abrupt occlusion of the right distal superficial femoral artery and the right popliteal artery. Consistent with a occlusion and ischemic leg. Left leg was also done per protocol and shows a 60% stenosis on the left. This is an incidental finding. Emergency Department Course and Treatment: Elderly male with strong concern for right lower extremity ischemic limb. Appears to be around the knee or below. I am unable to get an ultrasound study of the artery at this time. We will get a CTA of the right lower extremity. Screening labs are being obtained. I have di scussed aggressiveness of his care with his stepdaughter. We are unsure of the onset of the symptoms. Treatment Plan: Prior to the CTA results shortly after I saw the patient in it[place] was started on heparin IV bolus and drip. [facility] has accepted the patient on the waiting to speak to the vascular surgeon. Disposition: [] Impression: Acute right lower extremity ischemia secondary to arterial vascular occlusion of the right distal superficial femoral artery and popliteal artery. History of dementia with Parkinson's disease Covid positive Prior stroke Status post right hip arthroplasty from fracture. This note was generated with [employer] dictation software. It may contain incorrect words, spelling, and punctuation that were not noted in review of the chart prior to signing ED Disposition - Plan for ED Patient: Referrals: Uche Apodaca MD [Primary Care Provider] -
[2020-06-17 12:50] LABS: Absolute Lymphocyte Count 0.78 X10^3/uL (0.83-4.51); Basophil# 0.01 X10^3/uL; Basophil% 0.1 % (0-1); Hematocrit 44.4 % (40-54); Hemoglobin 13.8 g/dL (13.0-16.5); Lymphocyte # 0.78 X10^3/ul (4.0); Lymphocyte % 7.2 % (19-41); Mean Corp Hgb Conc 31.1 g/dL (32-36); Mean Corpuscular Volume 86.7 fL (80-94); Mean Platelet Vol. 10.9 fl (6.2-12.0); Monocyte# 0.98 X10^3/uL; NRBC Flagged by Analyzer 0 % (0-5); Neutrophil # 9.02 X10^3/uL (2.7-7.7); Neutrophil % 83.1 % (47-70); Platelet Count 343 K/mm3 (150-450); RBC Distribution Width CV 16.1 % (11.6-14.6); RBC Distribution Width SD 50.7 fl (35.1-43.9); Red Blood Count 5.12 M/mm3 (4.6-6.2); White Blood Count 10.9 K/mm3 (4.4-11.0)
[2020-06-17 12:55] LABS: Anion Gap 8 (5-15); BUN 46 mg/dL (7-18); BUN/Creat Ratio 32.4 RATIO (10-20); Calcium,Total 9.2 mg/dL (8.5-10.1); Chloride 118 mmol/L (98-107); Creatinine, Serum 1.42 mg/dL (0.70-1.30); EST Glomerular Filtration Rate 51 mL/min (>60); Est Glom Filt Rate - Afr Amer 62 mL/min (>60); Estimated Creatinine Clearance 34.74 ml/min; Glucose 135 mg/dL (74-106); Potassium 3.6 mmol/L (3.5-5.1); Sodium Level 152 mmol/L (136-145)
--- NOTE | 2020-06-17 13:10 | RAD_ITS ---
STUDY: X-RAY CHEST REASON FOR EXAM: Male, 80 years old. fever, unable to take deep inspiration for xray. TECHNIQUE: Single AP portable view of the chest. COMPARISON: 12/24/2019 FINDINGS: Status post median sternotomy. Poor inspiration with some bibasilar atelectasis. There is no demonstrated pleural abnormality. Normal size heart. Normal mediastinum and harley. Normal visualized pulmonary arteries. There is atherosclerotic tortuosity of the aortic arch and descending thoracic aorta. Normal visualized thoracic spine. Normal visualized ribs, clavicles, and shoulders. There is no demonstrated abnormality of the visualized soft tissue structures of the upper abdomen. RAD/Chest 1 View (Portable) IMPRESSION: Poor inspiration with some bibasilar atelectasis. Electronically Signed: Virgil Coffey MD at 13:28 EST Tel , Service support ,
[2020-06-17 13:19] LABS: International Normalized Ratio 1.3; Partial Thromboplast Time 30.2 Seconds (24.1-36.2); Prothrombin Time (Protime)PT. 15.2 SECONDS (11.7-14.9)
[2020-06-17] MEDS: Heparin Injection (Vial) 5,000 UNIT/ML VIAL 4500 UNIT IV (13:20)
[2020-06-17] MEDS: HEPARIN/D5w 25,000 UNITS 25,000 UNITS/250 ML IV.SOLN. 10 UNITS IV (13:22)
[2020-06-17 13:29] VITALS: BP 112/66; PULSE 88; RESP 28; TEMP 36.6; O2SAT 93
[2020-06-17 14:29] VITALS: BP 112/70; PULSE 92; RESP 28; O2SAT 93
[2020-06-17 15:30] VITALS: BP 114/74; PULSE 88; RESP 30; TEMP 36.7; O2SAT 95
[2020-06-17 16:18] VITALS: BP 123/78; PULSE 84; RESP 34; O2SAT 94
== END 2020-06-17 16:20 | disposition home or self-care (01) ==
PROVIDERS: Emergency Provider Emergency Medicine; PCP Family Medicine
DX: I99.8 Other disorder of circulatory system (principal); G20 Parkinson's disease; F02.80 Dementia in other diseases classified elsewhere, unspecified severity, without behavioral disturbance, psychotic disturbance, mood disturbance, and anxiety; U07.1 COVID-19; I25.10 Atherosclerotic heart disease of native coronary artery without angina pectoris; I48.91 Unspecified atrial fibrillation; I10 Essential (primary) hypertension; J44.9 Chronic obstructive pulmonary disease, unspecified; Z96.641 Presence of right artificial hip joint; Z79.899 Other long term (current) drug therapy; Z86.73 Personal history of transient ischemic attack (TIA), and cerebral infarction without residual deficits
CPT/HCPCS: 71045; 75635; 80048; 85025; 85610; 85730; 87426; 93005; 96365; 96366; 99285; Q9967; A4216